=== PATIENT | male | born 1935 | race Caucasian/White ===

== ENCOUNTER 2016-10-29 02:16 | Inpatient (IN) | payer MEDICARE, BC ==
[2016-10-29 04:33] LABS: ABSOLUTE LYMPHOCYTES (AUTO) 0.7 10^3/uL (0.5-4.7); ABSOLUTE NEUT (AUTO) 5.8 10^3/uL (1.7-8.2); BASOPHILS % (AUTO) 0.4 % (0-2); EOSINOPHILS % (AUTO) 0.4 % (0-6); HEMATOCRIT 36.4 % (37.9-51.0); HEMOGLOBIN 12.8 g/dL (13.5-17.0); LYMPHOCYTES % (AUTO) 9.6 % (13-45); MEAN CORPUSCULAR HEMOGLOBIN 33.1 pg (27.0-33.4); MEAN CORPUSCULAR HGB CONC 35.2 g/dL (32.0-36.0); MEAN CORPUSCULAR VOLUME 94 fl (80-97); MONOCYTES % (AUTO) 13.1 % (3-13); RED BLOOD COUNT 3.87 10^6/uL (4.35-5.55); RED CELL DISTRIBUTION WIDTH 13.4 % (11.5-14.0); SEGMENTED NEUTROPHILS % (AUTO) 76.5 % (42-78); VENOUS BLOOD BASE EXCESS 0.4 mmol/L; VENOUS BLOOD PCO2 35.7 mmHg (35-63); VENOUS BLOOD PH 7.45 (7.30-7.42); WHITE BLOOD COUNT 7.6 10^3/uL (4.0-10.5)
--- NOTE | 2016-10-29 04:38 | ER Document Report ---
ED General - General Chief Complaint: Altered Mental Status Stated Complaint: ALTERED MENTAL STATUS AND COUGH Notes: Patient is 80-year-old male who is brought in by his son for confusion and weakness. Patient son said he got a call from the police the patient was found driving on the road at 20 miles an hour. With a please gum puller his frontal very confused. Son went and picked him up. Patient was in an area [place] that is far away from his house and not an area that he should've been familiar with. The patient himself cannot tell me why he ended up there. Son says the patient may have a history of very mild dementia but today he's been much more confused and very weak appearing and also having difficulty in relating which is not normal for him at all. No recent fevers. Son says patient has been coughing a lot since he picked him up which again is not normal. Patient lives with his older sister. His older sister is 85 years old. Patient denies any pain. When I asked the patient where he has he says "I think I'm in the rest home". Patient son does not really know exactly what kind of medical problems he has. He does not know what medications he is on. TRAVEL OUTSIDE OF THE [place] IN LAST 30 DAYS: No - Related Data Allergies/Adverse Reactions: No Known Allergies Allergy (Verified 12/08/13 12:43) Past Medical History - Social History Smoking Status: Unknown if Ever Smoked Frequency of alcohol use: None Drug Abuse: None Family History: None - Past Medical History Cardiac Medical History: Reports: Hx Coronary Artery Disease, Hx Heart Attack, Hx Hypercholesterolemia, Hx Hypertension Denies: Hx Atrial Fibrillation, Hx Congestive Heart Failure, Hx Peripheral Vascular Disease, Hx Pulmonary Embolism, Hx Heart Murmur Pulmonary Medical History: Denies: Hx Asthma, Hx Bronchitis, Hx COPD, Hx Pneumonia, Hx Respiratory Failure, Hx Sleep Apnea, Hx Tuberculosis Neurological Medical History: Denies: Hx Cerebrovascular Accident, Hx Seizures Endocrine Medical History: Reports: Hx Diabetes Mellitus Type 2 Renal/ Medical History: Denies: Hx Peritoneal Dialysis Malignancy Medical History: Denies Hx Lung Cancer GI Medical History: Denies: Hx Crohn's Disease, Hx Gastroesophageal Reflux Disease, Hx Hiatal Hernia, Hx Irritable Bowel, Hx Liver Failure, Hx Ulcer Musculoskeltal Medical History: Denies Hx Multiple Sclerosis Psychiatric Medical History: Denies: Hx Dementia Past Surgical History: Reports: Hx Cardiac Surgery - bypass x' s 5, Hx Coronary Artery Bypass Graft. Denies: Hx Colostomy, Hx Pacemaker - Immunizations Hx Diphtheria, Pertussis, Tetanus Vaccination: Yes - unsure Hx Pneumococcal Vaccination: 06/30/11 Review of Systems - Review of Systems Notes: My Normal Review Basic REVIEW OF SYSTEMS: CONSTITUTIONAL : Denies fever, chills, or sweats. Denies recent illness. EENT: Denies eye, ear, throat, or mouth pain or symptoms. Denies nasal or sinus congestion. CARDIOVASCULAR: Denies chest pain. RESPIRATORY: Recurrent cough GASTROINTESTINAL: Denies abdominal pain. Denies nausea, vomiting, or diarrhea. Denies constipation. Last BM: GENITOURINARY: Denies difficulty urinating, painful urination, burning, frequency, or blood in urine. MUSCULOSKELETAL: Denies neck or back pain or joint pain or swelling. SKIN: Denies rash or skin lesions. HEMATOLOGIC : Denies easy bruising or bleeding. LYMPHATIC: Denies swollen, enlarged glands. NEUROLOGICAL: Denies altered mental status or loss of consciousness. Denies headache. Denies weakness or paralysis or loss of use of either side. Has some gait dysfunction. Denies sensory or motor loss. ALL OTHER SYSTEMS REVIEWED AND NEGATIVE. Physical Exam - Vital signs Vitals: Temp Pulse Resp BP Pulse Ox 99.6 F 102 H 20 146/71 H 94 10/29/16 02:23 10/29/16 02:23 10/29/16 02:23 10/29/16 02:23 10/29/16 02:23 - Notes Notes: General Appearance: Well nourished, alert, cooperative, weak appearing. Vitals: reviewed, See vital signs table. Head: no swelling or tenderness to the head Eyes: PERRL, EOMI, Conjuctiva clear Mouth: No decreasd moisture Throat: No tonsillar inflammation, No airway obstruction, No lymphadenopathy Neck: Supple, no neck tenderness, Lungs: No wheezing, No rales, No rhonci, No accessory muscle use, good air exchange bilaterally. Heart: Normal rate, Regular rythm, No murmur, no rub Abdomen: Normal BS, soft, No rigidity, No abdominal tenderness, No guarding, no rebound, no abdominal masses, no organomegaly Extremities: strength 5/5 in all extremities, good pulses in all extremities, no swelling or tenderness in the extremities, no edema. Skin: warm, dry, appropriate color, no rash Neuro: speech clear, oriented x2, normal affect, responds appropriately to some questions. Cranial nerves II through XII are intact. Patient moves all extremities without difficulty. No focal weakness or numbness on exam. Patient 's gait is very staggered and he immediately reaches for objects to help steady himself as he walks. Course - Vital Signs Vital signs: Temp Pulse Resp BP Pulse Ox 97.8 F 102 H 21 H 119/56 L 95 10/29/16 06:01 10/29/16 02:23 10/29/16 06:32 10/29/16 06:32 10/29/16 06:32 - Laboratory Result Diagrams: 10/29/16 04:15 10/29/16 06:41 Laboratory results interpreted by me: 10/29/16 10/29/16 10/29/16 04:15 04:15 06:25 RBC 3.87 L Hgb 12.8 L Hct 36.4 L Lymphocytes % 9.6 L Monocytes % 13.1 H VBG pH 7.45 H Chloride Glucose Total Bilirubin Direct Bilirubin Creatine Kinase Urine Protein 30 H Urine Ketones TRACE H Urine Blood MODERATE H Urine Urobilinogen 4.0 H 10/29/16 06:41 RBC Hgb Hct Lymphocytes % Monocytes % VBG pH Chloride 97 L Glucose 111 H Total Bilirubin 1.6 H Direct Bilirubin 0.5 H Creatine Kinase 420 H Urine Protein Urine Ketones Urine Blood Urine Urobilinogen - EKG Interpretation by Me Additional EKG results interpreted by me: 10/29/16 04:37 EKG is reviewed and interpreted by me. EKG shows normal sinus rhythm with rate of [address] segment elevation or depression. No ischemic T wave inversions. [place] interval is within normal range. QRS duration QTC intervals are prolonged. Old EKG for comparison is from 06/19/2012. - Transfer of Care Notes: 10/29/16 07:37 Patient shows some confusion. Also concerned that according to his son he normally walks fine and now he is ataxic when he gets up and moves around. While he was here his oxygen saturations were dipping down to about 90% while rest. I did get him up to walk him and his oxygen saturation dipped into the upper 80s. He has been having a lot of coughing and his chest x-ray does show some pneumonia and therefore he was likely has clinical pneumonia with some hypoxemia. Urinalysis does show some hematuria. Exact cause of this is not clear. At this time I will consult the hospitals for consideration for admission. 10/29/16 07:38 Dictation of this chart was performed using voice recognition software; therefore, there may be some unintended grammatical errors. Discharge - Discharge Clinical Impression: Hypoxemia Pneumonia Qualifiers: Pneumonia type: due to unspecified organism Laterality: unspecified laterality Lung location: unspecified part of lung Qualified Code(s): J18.9 - Pneumonia, unspecified organism Altered mental status Qualifiers: Altered mental status type: unspecified Qualified Code(s): R41.82 - Altered mental status, unspecified Condition: Stable Disposition: ADMITTED INPATIENT Admitting Provider: Hospitalist Unit Admitted: [facility]
[2016-10-29] MEDS ORDERED: LEVOFLOXACIN 750 MG/D5W RTU 150 ML IV ONE (05:37)
[2016-10-29] MEDS ORDERED: IPRATROPIUM/ALBUTEROL 0.5-2.5 MG/3 ML AMPUL NEB ONE (05:39)
[2016-10-29 07:03] LABS: APPEARANCE,URINE CLEAR; BILIRUBIN,URINE NEGATIVE (NEGATIVE); GLUCOSE, URINE NEGATIVE (NEGATIVE); KETONES,URINE TRACE mg/dL (NEGATIVE); LEUKOCYTE ESTERASE,URINE NEGATIVE (NEGATIVE); NITRITE,URINE NEGATIVE (NEGATIVE); PROTEIN,URINE 30 mg/dL (NEGATIVE); URINE SPECIFIC GRAVITY 1.016
[2016-10-29 07:08] LABS: ALANINE AMINOTRANSFERASE 30 U/L (21-72); ALBUMIN 3.7 g/dL (3.5-5.0); ALKALINE PHOSPHATASE 68 U/L (38-126); ANION GAP 14 (5-19); ASPARTATE AMINO TRANSFERASE 35 U/L (17-59); BILIRUBIN,DIRECT 0.5 mg/dL (0.0-0.4); BILIRUBIN,TOTAL 1.6 mg/dL (0.2-1.3); BLOOD UREA NITROGEN 13 mg/dL (7-20); CALCIUM 8.9 mg/dL (8.4-10.2); CARBON DIOXIDE 26 mmol/L (22-30); CHLORIDE 97 mmol/L (98-107); CREATINE KINASE 420 U/L (55-170); CREATININE RESULT 0.82 mg/dL (0.52-1.25); GLUCOSE 111 mg/dL (75-110); POTASSIUM 3.7 mmol/L (3.6-5.0)
[2016-10-29 07:11] LABS: ALCOHOL < 10 mg/dL (NONE DETECTED)
[2016-10-29 07:11] LABS: URINE BARBITURATES SCREEN NEGATIVE; URINE METHADONE SCREEN NEGATIVE; URINE OPIATES LOW NEGATIVE; URINE PHENCYCLIDINE SCREEN NEGATIVE
[2016-10-29 07:20] LABS: CREATINE KINASE MB 4.05 ng/mL (<4.55)
[2016-10-29 07:23] LABS: TROPONIN I < 0.012 ng/mL
[2016-10-29] MEDS ORDERED: LEVALBUTEROL HCL NEB 1.25 MG/3 ML AMPUL NEB PRN (07:38)
[2016-10-29] MEDS ORDERED: ACETAMINOPHEN 325 MG TABLET PO PRN (07:38)
[2016-10-29] MEDS ORDERED: PHARMACY COMMUNICATION ORDER MC NR (07:45)
--- NOTE | 2016-10-29 07:55 | EKG REPORT ---
SEVERITY:- ABNORMAL ECG - SINUS RHYTHM IVCD, CONSIDER ATYPICAL RBBB : Confirmed by: Jose Jurado MD 29-Oct-2016 07:54:58
[2016-10-29] MEDS ORDERED: ENOXAPARIN SODIUM INJ 40 MG/0.4 ML DISP.SYRIN SUBCUT SCH (08:00)
[2016-10-29] MEDS: IPRATROPIUM/ALBUTEROL 0.5-2.5 MG/3 ML AMPUL NEB SCH ×3 (09:31→20:14)
[2016-10-29] MEDS: FAMOTIDINE 20 MG TABLET PO SCH ×2 (09:48→21:20)
[2016-10-29] MEDS: GUAIFENESIN 600 MG TABLET.SA PO SCH ×2 (09:49→21:20)
[2016-10-29] MEDS: NORMAL SALINE 1000 ML 1,000 ML IV PRN ×2 (09:49→17:27)
[2016-10-29] MEDS: CEFTRIAXONE 1 GM/D5W RTU 50 ML IV SCH (09:59)
[2016-10-29] MEDS ORDERED: NALOXONE HCL INJ/PF 0.4 MG/1 ML SDV IV ONE (10:00)
[2016-10-29 14:23] LABS: CREATINE KINASE MB 6.45 ng/mL (<4.55)
[2016-10-29 14:24] LABS: TROPONIN I < 0.012 ng/mL
[2016-10-29] MEDS ORDERED: LORAZEPAM INJ 2 MG/1 ML VIAL IV ONE (14:55)
[2016-10-29] MEDS ORDERED: PANTOPRAZOLE SODIUM 40 MG VIAL IV ONE (14:55)
[2016-10-29] MEDS ORDERED: DEXTROSE 40% GEL 15 GM TUBE PO PRN ×2 (15:02)
[2016-10-29] MEDS ORDERED: INSULIN LISPRO 100 UNIT/ML 3 ML VIAL SUBCUT PRN (15:02)
[2016-10-29] MEDS ORDERED: DEXTROSE 50%-WATER 25 GM/50 ML DISP.SYRIN IV PRN ×2 (15:02)
[2016-10-29] MEDS ORDERED: GLUCAGON,HUMAN RECOMB 1 MG INJ IM PRN (15:02)
[2016-10-29] MEDS: DOXYCYCLINE HYCLATE 100 MG in DEXTROSE 5%-WATER 250 ML IV SCH (17:28)
--- NOTE | 2016-10-29 18:56 | PDOC H&P ---
History of Present Illness Admission Date/PCP: 10/29/16 07:38 History of Present Illness: RAMESH GUERRERO is a 80 year old male is unaccompanied in the emergency department and history is primarily obtained from the emergency department notes. Apparently, patient was brought to the emergency department by his son after being found by the police for his father driving until he ran out of gas. He was confused and also had a cough at that time. Currently, patient is found to be hypoxic upon ambulation, with cough and dehydration. Patient is quite confused and is unable to provide me any history. Past Medical History Cardiac Medical History: Reports: Coronary Artery Disease, Myocardial Infarction , Hyperlipidema, Hypertension Denies: Atrial Fibrillation, Congestive Heart Failure, Peripheral Vascular Disease, Pulmonary Embolism, Heart Murmur Pulmonary Medical History: Denies: Asthma, Bronchitis, Chronic Obstructive Pulmonary Disease (COPD), Pneumonia, Respiratory Failure, Sleep Apnea, Tuberculosis Neurological Medical History: Denies: Seizures Endocrine Medical History: Reports: Diabetes Mellitus Type 2 Malignancy Medical History: Denies: Lung Cancer GI Medical History: Denies: Crohn's Disease, Gastroesophageal Reflux Disease, Hiatal Hernia Psychiatric Medical History: Denies: Dementia Past Surgical History Past Surgical History: Reports: Coronary Artery Bypass Graft Denies: Colostomy, Pacemaker Social History Information Source: [facility] Records Lives with: Family Smoking Status: Unknown if Ever Smoked Hx Recreational Drug Use: No Hx Prescription Drug Abuse: No - Advance Directive Resuscitation Status: Full Code Surrogate healthcare decision maker:: son Family History Family History: None Family History: Unable to obtain secondary to altered mental status Parental Family History Reviewed: No Children Family History Reviewed: No Sibling(s) Family History Reviewed.: No Medication/Allergy Home Medications: Unobtainable [Unobtainable] 10/29/16 Allergies/Adverse Reactions: No Known Allergies Allergy (Verified 12/08/13 12:43) Review of Systems ROS unobtainable: Due to mental status Physical Exam Vital Signs: Temp Pulse Resp BP Pulse Ox 98.4 F 83 20 116/61 100 10/29/16 18:12 10/29/16 18:12 10/29/16 18:12 10/29/16 18:12 10/29/16 18:12 General appearance: PRESENT: disheveled, hard of hearing, mild distress, well- developed, well-nourished Head exam: PRESENT: atraumatic, normocephalic Eye exam: PRESENT: conjunctiva pink, EOMI. ABSENT: PERRLA - Minimally reactive 3 mm pupils, scleral icterus Ear exam: PRESENT: normal external ear exam Mouth exam: PRESENT: dry mucosa, tongue midline Neck exam: ABSENT: JVD, lymphadenopathy, meningismus, tenderness, thyromegaly, tracheal deviation Respiratory exam: PRESENT: rhonchi - Bilateral occasional right basilar, symmetrical, unlabored. ABSENT: accessory muscle use, rales, retraction, tachypnea, wheezes Cardiovascular exam: PRESENT: RRR, +S1, +S2. ABSENT: clicks, diastolic murmur, gallop, rubs, systolic murmur Pulses: PRESENT: normal dorsalis pedis pul Vascular exam: PRESENT: normal capillary refill GI/Abdominal exam: PRESENT: normal bowel sounds, soft. ABSENT: distended, firm , guarding, mass, Cortez's sign, organolmegaly, rebound, rigid, tenderness Rectal exam: PRESENT: deferred Extremities exam: PRESENT: full ROM. ABSENT: calf tenderness, clubbing, pedal edema Neurological exam: PRESENT: alert, awake, oriented to person, CN II-XII grossly intact. ABSENT: oriented to place, oriented to time, oriented to situation, motor sensory deficit Psychiatric exam: PRESENT: appropriate affect, normal mood. ABSENT: homicidal ideation, suicidal ideation Skin exam: PRESENT: dry, intact, warm. ABSENT: cyanosis, rash Results Laboratory Results: 10/29/16 10/29/16 13:37 13:37 Creatine Kinase 527 H CK-MB (CK-2) 6.45 H Troponin I < 0.012 Impressions: Abdomen/Pelvis CT 10/29/16 00:00 IMPRESSION: Calcified gallstones without CT signs of acute cholecystitis. Probable vascular arterial calcifications of the right and left renal genoveva. No evidence of ureteral stones or hydronephrosis/ hydroureter Heavy atherosclerotic aortic and major branch calcifications Head CT 10/29/16 00:00 IMPRESSION: No acute findings. Chest X-Ray 10/29/16 03:15 IMPRESSION: New small patchiness of the right lung base may indicate pneumonia , atelectasis, or scar compared with prior exam from 2012. Assessment & Plan - Diagnosis (1) Pneumonia Qualifiers: Pneumonia type: due to unspecified organism Laterality: unspecified laterality Lung location: unspecified part of lung Qualified Code(s): J18.9 - Pneumonia, unspecified organism Is this a current diagnosis for this admission?: YesPlan: Clinically patient sounds like he has bilateral bibasilar pneumonia. Will hydrate patient and repeat chest x-ray tomorrow to see if a infiltrate declares itself. Place patient on Rocephin and doxycycline and pulmonary toileting. (2) Acute hypoxemic respiratory failure Is this a current diagnosis for this admission?: YesPlan: Continue oxygen to maintain saturation greater than 94%. (3) Acute encephalopathy Is this a current diagnosis for this admission?: YesPlan: Patient was and still is clearly confused. Apparently this is not patient's baseline. Likely secondary to underlying dementia worsened by acute infection. Continue supportive care and place her. Patient has artery twice attempted to remove his IV and leave the emergency department. (4) Dementia Qualifiers: Dementia type: unspecified type Dementia behavioral disturbance: with behavioral disturbance Qualified Code(s): F03.91 - Unspecified dementia with behavioral disturbance Is this a current diagnosis for this admission?: YesPlan: Sitter and supportive care. Patient does have a mildly prolonged QT and will avoid QT prolonging agents. (5) Coronary artery disease Qualifiers: Coronary Disease-Associated Artery/Lesion type: [place] artery [place] vs. transplanted heart: [place] heart Associated angina: without angina Qualified Code(s): I25.10 - Atherosclerotic heart disease of [place] coronary artery without angina pectoris Is this a current diagnosis for this admission?: YesPlan: Clearly evident on CT. Patient had prior CABG. (6) Hematuria Is this a current diagnosis for this admission?: YesPlan: Obtain CT of the abdomen and pelvis for possible stone or mass. This may also have been due to catheterization. - Time Time Spent: 50 to 70 Minutes Medications reviewed and adjusted accordingly: Yes - Inpatient Certification Based on my medical assessment, after consideration of the patient's comorbidities, presenting symptoms, or acuity I expect that the services needed warrant INPATIENT care.: Yes I certify that my determination is in accordance with my understanding of Medicare's requirements for reasonable and necessary INPATIENT services [42 CFR 412.3e].: Yes Medical Necessity: Significant Comorbidiites Make Outpatient Treatment Too Risky , Need for Nebulizer Therapy and Monitoring of Response, Need for IV Antibiotics Post Hospital Care: D/C Change Advisor Documentation
[2016-10-29 20:02] LABS: CREATINE KINASE MB 8.05 ng/mL (<4.55)
[2016-10-29 20:06] LABS: TROPONIN I < 0.012 ng/mL
[2016-10-30 03:56] LABS: HEMATOCRIT 32.4 % (37.9-51.0); HEMOGLOBIN 11.6 g/dL (13.5-17.0); HGB HCT DIFFERENCE 2.4; MEAN CORPUSCULAR HEMOGLOBIN 33.6 pg (27.0-33.4); MEAN CORPUSCULAR HGB CONC 35.7 g/dL (32.0-36.0); MEAN CORPUSCULAR VOLUME 94 fl (80-97); RED BLOOD COUNT 3.44 10^6/uL (4.35-5.55); RED CELL DISTRIBUTION WIDTH 13.4 % (11.5-14.0); WHITE BLOOD COUNT 8.6 10^3/uL (4.0-10.5)
[2016-10-30] MEDS: DOXYCYCLINE HYCLATE 100 MG in DEXTROSE 5%-WATER 250 ML IV SCH ×2 (05:01→18:41)
[2016-10-30 05:07] LABS: BAND NEUTROPHILS % (MANUAL) 1 % (3-5); BASOPHILS % (MANUAL) 0 % (0-2); EOSINOPHILS % (MANUAL) 1 % (0-6); LYMPHOCYTES % (MANUAL) 10 % (13-45); TOTAL CELLS COUNTED 100
[2016-10-30 05:07] LABS: ANION GAP 13 (5-19); BLOOD UREA NITROGEN 11 mg/dL (7-20); CALCIUM 8.3 mg/dL (8.4-10.2); CARBON DIOXIDE 23 mmol/L (22-30); CHLORIDE 99 mmol/L (98-107); CREATININE RESULT 0.66 mg/dL (0.52-1.25); GLUCOSE 82 mg/dL (75-110); POTASSIUM 3.5 mmol/L (3.6-5.0); SODIUM 134.6 mmol/L (137-145)
[2016-10-30 05:09] LABS: PLATELET CLUMPS PRESENT; POLYCHROMASIA SLIGHT; TOXIC GRANULATION SLIGHT
[2016-10-30] MEDS ORDERED: LEVOFLOXACIN 750 MG/D5W RTU 150 ML IV SCH (06:00)
[2016-10-30 06:11] LABS: FOLATE 7.41 ng/mL (>2.76)
[2016-10-30] MEDS: IPRATROPIUM/ALBUTEROL 0.5-2.5 MG/3 ML AMPUL NEB SCH ×3 (08:50→20:16)
[2016-10-30] MEDS: FAMOTIDINE 20 MG TABLET PO SCH ×2 (09:59→22:58)
[2016-10-30] MEDS: GUAIFENESIN 600 MG TABLET.SA PO SCH ×2 (09:59→22:58)
[2016-10-30] MEDS: CEFTRIAXONE 1 GM/D5W RTU 50 ML IV SCH (09:59)
[2016-10-30] MEDS: ENOXAPARIN SODIUM INJ 40 MG/0.4 ML DISP.SYRIN SUBCUT SCH (10:00)
[2016-10-30] MEDS: METHYLPREDNISOLONE INJ 40 MG/1 ML SDV IV SCH ×2 (14:05→22:58)
[2016-10-30] MEDS: TAMSULOSIN HCL 0.4 MG CAP.SR.24H PO SCH (18:40)
[2016-10-30] MEDS: RISPERIDONE 1 MG TABLET PO SCH (18:40)
[2016-10-30] MEDS: LORAZEPAM 1 MG TABLET PO PRN (20:44)
[2016-10-31 04:53] LABS: ABSOLUTE LYMPHOCYTES (AUTO) 0.8 10^3/uL (0.5-4.7); ABSOLUTE MONOCYTES (AUTO) 0.5 10^3/uL (0.1-1.4); ABSOLUTE NEUT (AUTO) 4.2 10^3/uL (1.7-8.2); BASOPHILS % (AUTO) 0.7 % (0-2); HEMATOCRIT 33.2 % (37.9-51.0); HEMOGLOBIN 11.9 g/dL (13.5-17.0); HGB HCT DIFFERENCE 2.5; MEAN CORPUSCULAR HEMOGLOBIN 33.7 pg (27.0-33.4); MEAN CORPUSCULAR HGB CONC 35.7 g/dL (32.0-36.0); MEAN CORPUSCULAR VOLUME 94 fl (80-97); MONOCYTES % (AUTO) 8.7 % (3-13); RED BLOOD COUNT 3.51 10^6/uL (4.35-5.55); RED CELL DISTRIBUTION WIDTH 13.1 % (11.5-14.0); SEGMENTED NEUTROPHILS % (AUTO) 76.6 % (42-78); WHITE BLOOD COUNT 5.5 10^3/uL (4.0-10.5)
[2016-10-31] MEDS: DOXYCYCLINE HYCLATE 100 MG in DEXTROSE 5%-WATER 250 ML IV SCH ×2 (06:34→18:25)
[2016-10-31] MEDS: METHYLPREDNISOLONE INJ 40 MG/1 ML SDV IV SCH ×2 (06:34→14:51)
[2016-10-31] MEDS: IPRATROPIUM/ALBUTEROL 0.5-2.5 MG/3 ML AMPUL NEB SCH ×3 (08:18→20:04)
[2016-10-31] MEDS ORDERED: POTASSIUM CHLORIDE 10 MEQ TABLET.SA PO ONE (09:00)
[2016-10-31] MEDS: CEFTRIAXONE 1 GM/D5W RTU 50 ML IV SCH (10:11)
[2016-10-31] MEDS: ENOXAPARIN SODIUM INJ 40 MG/0.4 ML DISP.SYRIN SUBCUT SCH (10:13)
[2016-10-31] MEDS: FAMOTIDINE 20 MG TABLET PO SCH (10:15)
[2016-10-31] MEDS: FINASTERIDE 5 MG TABLET PO SCH (10:15)
[2016-10-31] MEDS: RISPERIDONE 1 MG TABLET PO SCH ×2 (10:15→18:24)
[2016-10-31] MEDS: GUAIFENESIN 600 MG TABLET.SA PO SCH (10:15)
[2016-10-31] MEDS ORDERED: LORAZEPAM 0.5 MG TABLET PO PRN (10:54)
[2016-10-31] MEDS ORDERED: RISPERIDONE 1 MG TABLET PO ONE (11:30)
[2016-10-31] MEDS: CYANOCOBALAMIN (VITAMIN B-12) INJ 1000 MCG/1 ML VIAL IM SCH (12:28)
--- NOTE | 2016-10-31 15:21 | Physician Advisory Note ---
Physician Advisor ProgressNote .: Pursuant to the plan for [facility], I have reviewed the medical record for this patient. Physician Advisor Statement: Please document: 1. "BLL Pneumonia, suspect ____" (gram neg? gram positive? ...) 2. type of dementia - [Alzheimer's? Multi-infarct? ...] 3. All evidence supporting the dx of Ac Resp Failure in this case: any low O2 sats early on (or low-mid 90s on O2?), difficulty breathing/increased work of breathing, ... Thanks, CK
[2016-10-31] MEDS ORDERED: METOPROLOL TARTRATE PF/INJ 5 MG/5 ML SDV IV PRN (15:59)
--- NOTE | 2016-10-31 17:19 | PDOC PROGRESS REPORT ---
Subjective Progress Note for:: 10/30/16 Subjective:: Patient seen with son at bedside. Patient quite confused. Despite actively coughing he reports he is breathing fine. Unable to obtain review of systems secondary to dementia. Physical Exam Vital Signs: Temp Pulse Resp BP Pulse Ox 97.9 F 86 20 120/52 L 95 10/30/16 03:00 10/30/16 03:00 10/30/16 03:00 10/30/16 03:00 10/30/16 03:00 Intake & Output 10/29/16 10/30/16 10/31/16 06:59 06:59 06:59 Intake Total 1105 Output Total 750 Balance 355 Weight 77.9 kg Exam: General: Awake alert and oriented x1, mild respiratory distress, tachypnea HEENT: AT/NC, PERRL, EOMI, oropharynx is moist, pink, no scleral icterus, no conjunctival injection Neck: No JVD, trachea midline Chest: Tachypnea, rhonchi bilaterally CV: Regular rate and rhythm, normal S1 and S2, no murmur, rub, or gallop Abdomen: Soft, nontender to palpation, nondistended, active bowel sounds; no rebound, rigidity, or guarding Extremities: No cyanosis, clubbing or edema Neuro: Cranial nerves II through XII are grossly intact without focal deficits; awake alert and oriented x1 Psych: Pleasant mood and affect Results Laboratory Results: 10/30/16 03:41 10/30/16 04:12 10/29/16 10/30/16 10/30/16 19:15 03:41 04:12 WBC 8.6 RBC 3.44 L Hgb 11.6 L Hct 32.4 L MCV 94 MCH 33.6 H MCHC 35.7 RDW 13.4 Plt Count 194 Seg Neutrophils % Not Reportable Lymphocytes % Not Reportable Monocytes % Not Reportable Eosinophils % Not Reportable Basophils % Not Reportable Absolute Neutrophils Not Reportable Absolute Lymphocytes Not Reportable Absolute Monocytes Not Reportable Absolute Eosinophils Not Reportable Absolute Basophils Not Reportable Retic Count (auto) 1.48 Absolute Retic 0.051 Sodium 134.6 L Potassium 3.5 L Chloride 99 Carbon Dioxide 23 Anion Gap 13 BUN 11 Creatinine 0.66 Est GFR ( Amer) > 60 Est GFR (Non-Af Amer) > 60 Glucose 82 Calcium 8.3 L Magnesium 2.3 Iron 26.5 L TIBC 233 L % Saturation 11 Ferritin 279.00 Vitamin B12 193.0 L Folate 7.41 10/29/16 10/29/16 10/29/16 13:37 13:37 19:15 Creatine Kinase 527 H 697 H CK-MB (CK-2) 6.45 H Troponin I < 0.012 10/29/16 19:15 Creatine Kinase CK-MB (CK-2) 8.05 H Troponin I < 0.012 Impressions: Abdomen/Pelvis CT 10/29/16 00:00 IMPRESSION: Calcified gallstones without CT signs of acute cholecystitis. Probable vascular arterial calcifications of the right and left renal genoveva. No evidence of ureteral stones or hydronephrosis/ hydroureter Heavy atherosclerotic aortic and major branch calcifications Head CT 10/29/16 00:00 IMPRESSION: No acute findings. Chest X-Ray 10/29/16 03:15 IMPRESSION: New small patchiness of the right lung base may indicate pneumonia , atelectasis, or scar compared with prior exam from 2012. Assessment & Plan - Diagnosis (1) Pneumonia Qualifiers: Pneumonia type: due to unspecified organism Laterality: bilateral Lung location: lower lobe of lung Qualified Code(s): J18.9 - Pneumonia, unspecified organism Is this a current diagnosis for this admission?: YesPlan: Patient with bilateral lower lobe pneumonia. Concern for atypical organisms, and community acquired pathogen. Patient on Rocephin and doxycycline. Pulmonary toileting. Have added Solu-Medrol. (2) Acute hypoxemic respiratory failure Is this a current diagnosis for this admission?: YesPlan: Continue oxygen to maintain saturation greater than 94%. (3) Acute encephalopathy Is this a current diagnosis for this admission?: YesPlan: Patient was and still is clearly confused. According to his son, patient's dementia has been progressing and he has been getting worse. He reports that normally his father is more redirectable. (4) Dementia Qualifiers: Dementia type: unspecified type Dementia behavioral disturbance: with behavioral disturbance Qualified Code(s): F03.91 - Unspecified dementia with behavioral disturbance; F10.97 - Alcohol use, unspecified with alcohol- induced persisting dementia Is this a current diagnosis for this admission?: YesPlan: Sitter and supportive care. 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 We will judiciously use Risperdal. Give Ativan for sleep. (5) Coronary artery disease Qualifiers: Coronary Disease-Associated Artery/Lesion type: [place] artery [place] vs. transplanted heart: [place] heart Associated angina: without angina Qualified Code(s): I25.10 - Atherosclerotic heart disease of [place] coronary artery without angina pectoris Is this a current diagnosis for this admission?: YesPlan: Clearly evident on CT. Patient had prior CABG. Done is unable to provide me with any history. We will place patient on metoprolol and aspirin. (6) Hematuria Is this a current diagnosis for this admission?: YesPlan: Lately secondary to catheterization. Nursing reports that patient has been straining to urinate. Initiate patient on Flomax and finasteride. (7) Do not resuscitate Is this a current diagnosis for this admission?: YesPlan: Patient is a DO NOT RESUSCITATE per the request of Son - Time Time Spent with patient: 35 or more minutes Medications reviewed and adjusted accordingly: Yes Anticipated discharge: SNF
--- NOTE | 2016-10-31 17:25 | PDOC PROGRESS REPORT ---
Subjective Progress Note for:: 10/31/16 Subjective:: Patient slept well with Ativan. He has been attempting to leave today since waking. He's required soft wrist restraints to maintain IV. Patient denies chest pain, shortness of breath, abdominal pain, nausea, vomiting , fevers, chills, diarrhea, constipation, headache, new onset weakness. Physical Exam Vital Signs: Temp Pulse Resp BP Pulse Ox 97.9 F 94 18 135/58 H 96 10/30/16 15:53 10/31/16 02:00 10/30/16 20:20 10/30/16 15:53 10/30/16 15:53 Intake & Output 10/30/16 10/31/16 11/01/16 06:59 06:59 06:59 Intake Total 1105 3623 Output Total 750 460 Balance 355 3163 Weight 77.9 kg 77.5 kg Exam: General: Awake alert and oriented x1, no acute respiratory distress HEENT: AT/NC, PERRL, EOMI, oropharynx is moist, pink, no scleral icterus, no conjunctival injection Neck: No JVD, trachea midline Chest: rhonchi bilaterally CV: Regular rate and rhythm, normal S1 and S2, no murmur, rub, or gallop Abdomen: Soft, nontender to palpation, nondistended, active bowel sounds; no rebound, rigidity, or guarding Extremities: No cyanosis, clubbing or edema Neuro: Cranial nerves II through XII are grossly intact without focal deficits; awake alert and oriented x1 Psych: Pleasant mood and affect Results Laboratory Results: 10/31/16 04:08 10/30/16 04:12 10/30/16 10/31/16 04:12 04:08 WBC 5.5 RBC 3.51 L Hgb 11.9 L Hct 33.2 L MCV 94 MCH 33.7 H MCHC 35.7 RDW 13.1 Plt Count 256 Seg Neutrophils % 76.6 Lymphocytes % 14.0 Monocytes % 8.7 Eosinophils % 0.0 Basophils % 0.7 Absolute Neutrophils 4.2 Absolute Lymphocytes 0.8 Absolute Monocytes 0.5 Absolute Eosinophils 0.0 Absolute Basophils 0.0 Transferrin 164 L 10/29/16 10/29/16 10/29/16 13:37 13:37 19:15 Creatine Kinase 527 H 697 H CK-MB (CK-2) 6.45 H Troponin I < 0.012 10/29/16 19:15 Creatine Kinase CK-MB (CK-2) 8.05 H Troponin I < 0.012 Impressions: Abdomen/Pelvis CT 10/29/16 00:00 IMPRESSION: Calcified gallstones without CT signs of acute cholecystitis. Probable vascular arterial calcifications of the right and left renal genoveva. No evidence of ureteral stones or hydronephrosis/ hydroureter Heavy atherosclerotic aortic and major branch calcifications Head CT 10/29/16 00:00 IMPRESSION: No acute findings. Chest X-Ray 10/29/16 03:15 IMPRESSION: New small patchiness of the right lung base may indicate pneumonia , atelectasis, or scar compared with prior exam from 2012. Assessment & Plan - Diagnosis (1) Pneumonia Qualifiers: Pneumonia type: due to unspecified organism Laterality: bilateral Lung location: lower lobe of lung Qualified Code(s): J18.9 - Pneumonia, unspecified organism Is this a current diagnosis for this admission?: YesPlan: Patient with bilateral lower lobe pneumonia. Concern for atypical organisms, and community acquired pathogen. Patient on Rocephin and doxycycline. Pulmonary toileting. Continue Solu-Medrol. (2) Acute hypoxemic respiratory failure Is this a current diagnosis for this admission?: YesPlan: Yesterday patient had quite a bit of difficulty maintaining saturation without oxygen. Today he will not leave this on. His saturation is marginal and in the high 80s. (3) Acute encephalopathy Is this a current diagnosis for this admission?: YesPlan: Patient was and still is clearly confused. Will increase Risperdal and add when necessary Ativan. (4) Dementia Qualifiers: Dementia type: unspecified type Dementia behavioral disturbance: with behavioral disturbance Qualified Code(s): F03.91 - Unspecified dementia with behavioral disturbance; F10.97 - Alcohol use, unspecified with alcohol- induced persisting dementia Is this a current diagnosis for this admission?: YesPlan: Sitter and supportive care. 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 We will judiciously use Risperdal. Give Ativan for sleep. (5) Coronary artery disease Qualifiers: Coronary Disease-Associated Artery/Lesion type: [place] artery [place] vs. transplanted heart: [place] heart Associated angina: without angina Qualified Code(s): I25.10 - Atherosclerotic heart disease of [place] coronary artery without angina pectoris Is this a current diagnosis for this admission?: Yes (6) BPH (benign prostatic hyperplasia) Qualifiers: Prostatic enlargement morphology: unspecified morphology Lower urinary tract symptom presence: symptoms present Qualified Code(s): N40.1 - Benign prostatic hyperplasia with lower urinary tract symptoms Is this a current diagnosis for this admission?: YesPlan: Patient on Flomax and finasteride - Time Time Spent with patient: 25-34 minutes Medications reviewed and adjusted accordingly: Yes Anticipated discharge: SNF
[2016-10-31] MEDS: FERROUS SULFATE 325 MG TABLET PO SCH (18:22)
[2016-10-31] MEDS: TAMSULOSIN HCL 0.4 MG CAP.SR.24H PO SCH (18:24)
[2016-11-01] MEDS: METOPROLOL SUCCINATE 50 MG TAB.SR.24H PO SCH ×3 (00:02→22:31)
[2016-11-01] MEDS: METHYLPREDNISOLONE INJ 40 MG/1 ML SDV IV SCH ×4 (00:02→22:31)
[2016-11-01] MEDS: FAMOTIDINE 20 MG TABLET PO SCH ×3 (00:03→22:30)
[2016-11-01] MEDS: GUAIFENESIN 600 MG TABLET.SA PO SCH ×3 (00:03→22:30)
[2016-11-01] MEDS: LORAZEPAM 1 MG TABLET PO PRN (00:44)
[2016-11-01] MEDS: DOXYCYCLINE HYCLATE 100 MG in DEXTROSE 5%-WATER 250 ML IV SCH ×2 (06:00→17:58)
[2016-11-01 06:20] LABS: ABSOLUTE LYMPHOCYTES (AUTO) 0.4 10^3/uL (0.5-4.7); ABSOLUTE MONOCYTES (AUTO) 0.3 10^3/uL (0.1-1.4); ABSOLUTE NEUT (AUTO) 5.6 10^3/uL (1.7-8.2); BASOPHILS % (AUTO) 0.1 % (0-2); HEMATOCRIT 35.6 % (37.9-51.0); HEMOGLOBIN 12.5 g/dL (13.5-17.0); HGB HCT DIFFERENCE 1.9; MEAN CORPUSCULAR HEMOGLOBIN 33.2 pg (27.0-33.4); MEAN CORPUSCULAR HGB CONC 35.1 g/dL (32.0-36.0); MEAN CORPUSCULAR VOLUME 95 fl (80-97); MONOCYTES % (AUTO) 4.1 % (3-13); RED BLOOD COUNT 3.76 10^6/uL (4.35-5.55); RED CELL DISTRIBUTION WIDTH 13.2 % (11.5-14.0); SEGMENTED NEUTROPHILS % (AUTO) 89.8 % (42-78); WHITE BLOOD COUNT 6.3 10^3/uL (4.0-10.5)
[2016-11-01] MEDS: IPRATROPIUM/ALBUTEROL 0.5-2.5 MG/3 ML AMPUL NEB SCH ×3 (08:06→14:09)
[2016-11-01 08:30] LABS: ANION GAP 12 (5-19); BLOOD UREA NITROGEN 12 mg/dL (7-20); CALCIUM 8.9 mg/dL (8.4-10.2); CARBON DIOXIDE 25 mmol/L (22-30); CHLORIDE 104 mmol/L (98-107); CREATININE RESULT 0.57 mg/dL (0.52-1.25); GLUCOSE 143 mg/dL (75-110); SODIUM 141.3 mmol/L (137-145)
[2016-11-01 08:34] LABS: POTASSIUM 4.5 mmol/L (3.6-5.0)
[2016-11-01] MEDS: FERROUS SULFATE 325 MG TABLET PO SCH ×2 (11:35→17:55)
[2016-11-01] MEDS: RISPERIDONE 1 MG TABLET PO SCH ×2 (11:36→17:56)
[2016-11-01] MEDS: ASPIRIN 81 MG TABLET, ENT COATED PO SCH (11:36)
[2016-11-01] MEDS: CEFTRIAXONE 1 GM/D5W RTU 50 ML IV SCH (11:38)
[2016-11-01] MEDS: MULTIVITAMINS W-IRON TABLET, CHEWABLE PO SCH (11:41)
[2016-11-01] MEDS: ENOXAPARIN SODIUM INJ 40 MG/0.4 ML DISP.SYRIN SUBCUT SCH (11:42)
[2016-11-01] MEDS: FINASTERIDE 5 MG TABLET PO SCH (11:42)
[2016-11-01] MEDS: CYANOCOBALAMIN (VITAMIN B-12) INJ 1000 MCG/1 ML VIAL IM SCH (11:43)
[2016-11-01] MEDS: LORAZEPAM 0.5 MG TABLET PO PRN (15:26)
--- NOTE | 2016-11-01 16:09 | PDOC PROGRESS REPORT ---
Subjective Progress Note for:: 11/01/16 Subjective:: Patient currently confused and lethargic though trying to get up. He's required soft wrist restraints to maintain IV. Patient denies chest pain, shortness of breath, abdominal pain, nausea, vomiting , fevers, chills, diarrhea, constipation, headache, new onset weakness. Physical Exam Vital Signs: Temp Pulse Resp BP Pulse Ox 97.2 F 83 20 147/59 H 97 11/01/16 03:58 11/01/16 03:58 11/01/16 03:58 11/01/16 03:58 11/01/16 03:58 Intake & Output 10/31/16 11/01/16 11/02/16 06:59 06:59 06:59 Intake Total 3623 1947 Output Total 460 Balance 3163 1947 Weight 77.5 kg 77.5 kg Exam: General: Lethargic, no acute respiratory distress HEENT: AT/NC, PERRL, EOMI, oropharynx is moist, pink, no scleral icterus, no conjunctival injection Neck: No JVD, trachea midline Chest: Occasional rhonchi bilaterally CV: Regular rate and rhythm, normal S1 and S2, no murmur, rub, or gallop Abdomen: Soft, nontender to palpation, nondistended, active bowel sounds; no rebound, rigidity, or guarding Extremities: No cyanosis, clubbing or edema Neuro: Cranial nerves II through XII are grossly intact without focal deficits; lethargic Psych: Lethargic Results Laboratory Results: 11/01/16 05:38 10/30/16 04:12 10/31/16 11/01/16 11:34 05:38 WBC 6.3 RBC 3.76 L Hgb 12.5 L Hct 35.6 L MCV 95 MCH 33.2 MCHC 35.1 RDW 13.2 Plt Count 317 Seg Neutrophils % 89.8 H Lymphocytes % 6.0 L Monocytes % 4.1 Eosinophils % 0.0 Basophils % 0.1 Absolute Neutrophils 5.6 Absolute Lymphocytes 0.4 L Absolute Monocytes 0.3 Absolute Eosinophils 0.0 Absolute Basophils 0.0 TSH 1.59 10/29/16 10/29/16 10/29/16 13:37 13:37 19:15 Creatine Kinase 527 H 697 H CK-MB (CK-2) 6.45 H Troponin I < 0.012 10/29/16 19:15 Creatine Kinase CK-MB (CK-2) 8.05 H Troponin I < 0.012 Impressions: Abdomen/Pelvis CT 10/29/16 00:00 IMPRESSION: Calcified gallstones without CT signs of acute cholecystitis. Probable vascular arterial calcifications of the right and left renal genoveva. No evidence of ureteral stones or hydronephrosis/ hydroureter Heavy atherosclerotic aortic and major branch calcifications Head CT 10/29/16 00:00 IMPRESSION: No acute findings. Chest X-Ray 10/29/16 03:15 IMPRESSION: New small patchiness of the right lung base may indicate pneumonia , atelectasis, or scar compared with prior exam from 2012. Assessment & Plan - Diagnosis (1) Pneumonia Qualifiers: Pneumonia type: due to unspecified organism Laterality: bilateral Lung location: lower lobe of lung Qualified Code(s): J18.9 - Pneumonia, unspecified organism Is this a current diagnosis for this admission?: YesPlan: Patient with bilateral lower lobe pneumonia. Concern for atypical organisms, and community acquired pathogen. Patient on Rocephin and doxycycline. Pulmonary toileting. Continue Solu-Medrol. (2) Acute hypoxemic respiratory failure Is this a current diagnosis for this admission?: YesPlan: Patient was found in the emergency department to have an oxygen saturation in the low 80s upon ambulation. Patient has required some oxygen while here, but does not keep it on always. (3) Acute encephalopathy Is this a current diagnosis for this admission?: YesPlan: Patient was and still is clearly confused. Will decrease Risperdal and use when necessary Ativan. Patient family reports reports that he has a history of alcohol abuse. (4) Dementia Qualifiers: Dementia type: associated with alcoholism Dementia behavioral disturbance: with behavioral disturbance Qualified Code(s): F03.91 - Unspecified dementia with behavioral disturbance; F10.97 - Alcohol use, unspecified with alcohol-induced persisting dementia Is this a current diagnosis for this admission?: YesPlan: Sitter and supportive care. 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 Give Ativan for sleep. (5) Coronary artery disease Qualifiers: Coronary Disease-Associated Artery/Lesion type: [place] artery [place] vs. transplanted heart: [place] heart Associated angina: without angina Qualified Code(s): I25.10 - Atherosclerotic heart disease of [place] coronary artery without angina pectoris Is this a current diagnosis for this admission?: YesPlan: Clearly evident on CT. Patient had prior CABG. Done is unable to provide me with any history. We will place patient on metoprolol and aspirin. (6) BPH (benign prostatic hyperplasia) Qualifiers: Prostatic enlargement morphology: unspecified morphology Lower urinary tract symptom presence: symptoms present Qualified Code(s): N40.1 - Benign prostatic hyperplasia with lower urinary tract symptoms Is this a current diagnosis for this admission?: YesPlan: Patient on Flomax and finasteride (7) Vitamin B 12 deficiency Is this a current diagnosis for this admission?: YesPlan: Will continue IM B12 (8) Do not resuscitate Is this a current diagnosis for this admission?: YesPlan: Patient is a DO NOT RESUSCITATE per the request of Son - Time Time Spent with patient: 25-34 minutes Medications reviewed and adjusted accordingly: Yes Anticipated discharge: SNF
[2016-11-01] MEDS: TAMSULOSIN HCL 0.4 MG CAP.SR.24H PO SCH (17:55)
[2016-11-02] MEDS: DOXYCYCLINE HYCLATE 100 MG in DEXTROSE 5%-WATER 250 ML IV SCH ×2 (07:53→17:00)
[2016-11-02] MEDS: METHYLPREDNISOLONE INJ 40 MG/1 ML SDV IV SCH ×2 (07:53→22:58)
[2016-11-02] MEDS: FERROUS SULFATE 325 MG TABLET PO SCH ×2 (08:10→17:00)
[2016-11-02] MEDS: ENOXAPARIN SODIUM INJ 40 MG/0.4 ML DISP.SYRIN SUBCUT SCH (08:10)
[2016-11-02] MEDS: IPRATROPIUM/ALBUTEROL 0.5-2.5 MG/3 ML AMPUL NEB SCH ×3 (08:29→19:45)
[2016-11-02] MEDS: FINASTERIDE 5 MG TABLET PO SCH (09:20)
[2016-11-02] MEDS: CEFTRIAXONE 1 GM/D5W RTU 50 ML IV SCH (09:21)
[2016-11-02] MEDS: RISPERIDONE 1 MG TABLET PO SCH ×3 (09:21→22:58)
[2016-11-02] MEDS: ASPIRIN 81 MG TABLET, ENT COATED PO SCH (09:21)
[2016-11-02] MEDS: METOPROLOL SUCCINATE 50 MG TAB.SR.24H PO SCH ×2 (09:21→22:58)
[2016-11-02] MEDS: GUAIFENESIN 600 MG TABLET.SA PO SCH ×2 (09:21→22:58)
[2016-11-02] MEDS: FAMOTIDINE 20 MG TABLET PO SCH ×2 (09:21→22:58)
[2016-11-02] MEDS: MULTIVITAMINS W-IRON TABLET, CHEWABLE PO SCH (09:22)
[2016-11-02] MEDS: LORAZEPAM 0.5 MG TABLET PO PRN (09:46)
[2016-11-02] MEDS: CYANOCOBALAMIN (VITAMIN B-12) INJ 1000 MCG/1 ML VIAL IM SCH (11:00)
[2016-11-02] MEDS ORDERED: LORAZEPAM INJ 2 MG/1 ML VIAL ONE (13:49)
--- NOTE | 2016-11-02 14:29 | PDOC PROGRESS REPORT ---
Subjective Progress Note for:: 11/02/16 Subjective:: Patient seen earlier today at morning rounds. Patient is more alert today, but is trying to get out of bed and is completely disoriented. Unable to obtain review of systems secondary to metabolic encephalopathy. Physical Exam Vital Signs: Temp Pulse Resp BP Pulse Ox 97.3 F 103 H 20 118/58 L 97 11/02/16 12:00 11/02/16 12:00 11/02/16 12:00 11/02/16 12:00 11/02/16 12:00 Intake & Output 11/01/16 11/02/16 11/03/16 06:59 06:59 06:59 Intake Total 1946 517 Balance 1946 517 Weight 77.5 kg 79.3 kg Exam: General: awake, alert, oriented x1, no acute respiratory distress HEENT: AT/NC, PERRL, oropharynx is moist, pink, no scleral icterus, no conjunctival injection Neck: No JVD, trachea midline Chest: Clear to auscultation bilaterally CV: Regular rate and rhythm, normal S1 and S2, no murmur, rub, or gallop Abdomen: Soft, nontender to palpation, nondistended, active bowel sounds; no rebound, rigidity, or guarding Extremities: No cyanosis, clubbing or edema Neuro: A+Ox1, left eye ptosis Psych: Agitated Results Laboratory Results: 11/01/16 05:38 11/01/16 05:38 10/29/16 10/29/16 10/29/16 13:37 13:37 19:15 Creatine Kinase 527 H 697 H CK-MB (CK-2) 6.45 H Troponin I < 0.012 10/29/16 19:15 Creatine Kinase CK-MB (CK-2) 8.05 H Troponin I < 0.012 Impressions: Abdomen/Pelvis CT 10/29/16 00:00 IMPRESSION: Calcified gallstones without CT signs of acute cholecystitis. Probable vascular arterial calcifications of the right and left renal genoveva. No evidence of ureteral stones or hydronephrosis/ hydroureter Heavy atherosclerotic aortic and major branch calcifications Head CT 10/29/16 00:00 IMPRESSION: No acute findings. Chest X-Ray 10/29/16 03:15 IMPRESSION: New small patchiness of the right lung base may indicate pneumonia , atelectasis, or scar compared with prior exam from 2012. Assessment & Plan - Diagnosis (1) Pneumonia Qualifiers: Pneumonia type: due to unspecified organism Laterality: bilateral Lung location: lower lobe of lung Qualified Code(s): J18.9 - Pneumonia, unspecified organism Is this a current diagnosis for this admission?: YesPlan: Patient with bilateral lower lobe pneumonia. Concern for atypical organisms, and community acquired pathogen. Patient on Rocephin and doxycycline day #4 Pulmonary toileting. Decrease Solu-Medrol. (2) Acute hypoxemic respiratory failure Is this a current diagnosis for this admission?: YesPlan: Patient was found in the emergency department to have an oxygen saturation in the low 80s upon ambulation. Patient has required some oxygen while here, and is currently using this. (3) Acute encephalopathy Is this a current diagnosis for this admission?: YesPlan: Multifactorial secondary to underlying sepsis and dementia. Patient was and still is clearly confused. Add 1400 Risperdal and use when necessary Ativan. Patient family reports reports that he has a history of alcohol abuse. (4) Dementia Qualifiers: Dementia type: associated with alcoholism Dementia behavioral disturbance: with behavioral disturbance Qualified Code(s): F03.91 - Unspecified dementia with behavioral disturbance; F10.97 - Alcohol use, unspecified with alcohol-induced persisting dementia Is this a current diagnosis for this admission?: YesPlan: Sitter and supportive care. 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 Give Ativan for sleep. (5) Coronary artery disease Qualifiers: Coronary Disease-Associated Artery/Lesion type: [place] artery [place] vs. transplanted heart: [place] heart Associated angina: without angina Qualified Code(s): I25.10 - Atherosclerotic heart disease of [place] coronary artery without angina pectoris Is this a current diagnosis for this admission?: YesPlan: Clearly evident on CT. Patient had prior CABG. Done is unable to provide me with any history. On metoprolol and aspirin. (6) BPH (benign prostatic hyperplasia) Qualifiers: Prostatic enlargement morphology: unspecified morphology Lower urinary tract symptom presence: symptoms present Qualified Code(s): N40.1 - Benign prostatic hyperplasia with lower urinary tract symptoms Is this a current diagnosis for this admission?: YesPlan: Patient on Flomax and finasteride (7) Vitamin B 12 deficiency Is this a current diagnosis for this admission?: YesPlan: Will continue IM B12 (8) Do not resuscitate Is this a current diagnosis for this admission?: Yes - Time Time Spent with patient: 25-34 minutes Medications reviewed and adjusted accordingly: Yes Anticipated discharge: Acute Rehab
[2016-11-02] MEDS ORDERED: LORAZEPAM INJ 2 MG/1 ML VIAL IV ONE (14:30)
[2016-11-02] MEDS: TAMSULOSIN HCL 0.4 MG CAP.SR.24H PO SCH (17:00)
[2016-11-03] MEDS: RISPERIDONE 1 MG TABLET PO SCH ×3 (06:25→21:17)
[2016-11-03] MEDS: DOXYCYCLINE HYCLATE 100 MG in DEXTROSE 5%-WATER 250 ML IV SCH (06:25)
[2016-11-03] MEDS: ENOXAPARIN SODIUM INJ 40 MG/0.4 ML DISP.SYRIN SUBCUT SCH (07:36)
[2016-11-03 07:38] LABS: ABSOLUTE LYMPHOCYTES (AUTO) 0.6 10^3/uL (0.5-4.7); ABSOLUTE MONOCYTES (AUTO) 0.5 10^3/uL (0.1-1.4); BASOPHILS % (AUTO) 0.4 % (0-2); HEMATOCRIT 38.8 % (37.9-51.0); HEMOGLOBIN 13.6 g/dL (13.5-17.0); LYMPHOCYTES % (AUTO) 10.2 % (13-45); MEAN CORPUSCULAR HEMOGLOBIN 33.7 pg (27.0-33.4); MEAN CORPUSCULAR HGB CONC 35.1 g/dL (32.0-36.0); MEAN CORPUSCULAR VOLUME 96 fl (80-97); MONOCYTES % (AUTO) 8.1 % (3-13); RED BLOOD COUNT 4.04 10^6/uL (4.35-5.55); RED CELL DISTRIBUTION WIDTH 13.6 % (11.5-14.0); SEGMENTED NEUTROPHILS % (AUTO) 81.3 % (42-78); WHITE BLOOD COUNT 6.2 10^3/uL (4.0-10.5)
[2016-11-03] MEDS: IPRATROPIUM/ALBUTEROL 0.5-2.5 MG/3 ML AMPUL NEB SCH ×3 (07:45→19:38)
[2016-11-03 07:58] LABS: ANION GAP 10 (5-19); BLOOD UREA NITROGEN 18 mg/dL (7-20); CALCIUM 9.1 mg/dL (8.4-10.2); CARBON DIOXIDE 24 mmol/L (22-30); CHLORIDE 101 mmol/L (98-107); CREATININE RESULT 0.64 mg/dL (0.52-1.25); GLUCOSE 169 mg/dL (75-110); POTASSIUM 4.4 mmol/L (3.6-5.0); SODIUM 135.1 mmol/L (137-145)
[2016-11-03] MEDS: METOPROLOL SUCCINATE 50 MG TAB.SR.24H PO SCH ×2 (09:27→21:17)
[2016-11-03] MEDS: FAMOTIDINE 20 MG TABLET PO SCH ×2 (09:28→21:17)
[2016-11-03] MEDS: MULTIVITAMINS W-IRON TABLET, CHEWABLE PO SCH (09:28)
[2016-11-03] MEDS: CEFTRIAXONE 1 GM/D5W RTU 50 ML IV SCH (09:28)
[2016-11-03] MEDS: METHYLPREDNISOLONE INJ 40 MG/1 ML SDV IV SCH (09:28)
[2016-11-03] MEDS: GUAIFENESIN 600 MG TABLET.SA PO SCH ×2 (09:28→21:17)
[2016-11-03] MEDS: FINASTERIDE 5 MG TABLET PO SCH (09:28)
[2016-11-03] MEDS: ASPIRIN 81 MG TABLET, ENT COATED PO SCH (09:28)
[2016-11-03] MEDS: FERROUS SULFATE 325 MG TABLET PO SCH ×2 (09:29→17:14)
[2016-11-03] MEDS: CYANOCOBALAMIN (VITAMIN B-12) INJ 1000 MCG/1 ML VIAL IM SCH (11:00)
[2016-11-03] MEDS: LORAZEPAM 0.5 MG TABLET PO PRN ×2 (11:36→17:49)
--- NOTE | 2016-11-03 13:07 | PDOC PROGRESS REPORT ---
Subjective Progress Note for:: 11/03/16 Subjective:: Patient seen earlier today at morning rounds. Patient is more alert today, but is disoriented. Unable to obtain review of systems secondary to encephalopathy/dementia. Physical Exam Vital Signs: Temp Pulse Resp BP Pulse Ox 98.3 F 107 H 18 151/92 H 95 11/03/16 12:00 11/03/16 12:00 11/03/16 12:00 11/03/16 12:00 11/03/16 12:00 Intake & Output 11/02/16 11/03/16 11/04/16 06:59 06:59 06:59 Intake Total 517 1420 Output Total 150 Balance 517 1270 Weight 79.3 kg 78.5 kg Exam: General: awake, alert, oriented x1, no acute respiratory distress HEENT: AT/NC, PERRL, oropharynx is moist, pink, no scleral icterus, no conjunctival injection Neck: No JVD, trachea midline Chest: Bilateral rhonchi CV: Regular rate and rhythm, normal S1 and S2, no murmur, rub, or gallop Abdomen: Soft, nontender to palpation, nondistended, active bowel sounds; no rebound, rigidity, or guarding Extremities: No cyanosis, clubbing or edema Neuro: A+Ox1, left eye ptosis Psych: Normal Mood and affect Results Laboratory Results: 11/03/16 07:28 11/03/16 07:28 11/03/16 11/03/16 07:28 07:28 WBC 6.2 RBC 4.04 L Hgb 13.6 Hct 38.8 MCV 96 MCH 33.7 H MCHC 35.1 RDW 13.6 Plt Count 316 Seg Neutrophils % 81.3 H Lymphocytes % 10.2 L Monocytes % 8.1 Eosinophils % 0.0 Basophils % 0.4 Absolute Neutrophils 5.0 Absolute Lymphocytes 0.6 Absolute Monocytes 0.5 Absolute Eosinophils 0.0 Absolute Basophils 0.0 Sodium 135.1 L Potassium 4.4 Chloride 101 Carbon Dioxide 24 Anion Gap 10 BUN 18 Creatinine 0.64 Est GFR ( Amer) > 60 Est GFR (Non-Af Amer) > 60 Glucose 169 H Calcium 9.1 10/29/16 10:50 Blood Blood Culture - Final NO GROWTH IN 5 DAYS 10/29/16 08:51 Blood Blood Culture - Final NO GROWTH IN 5 DAYS 10/29/16 10/29/16 10/29/16 13:37 13:37 19:15 Creatine Kinase 527 H 697 H CK-MB (CK-2) 6.45 H Troponin I < 0.012 10/29/16 19:15 Creatine Kinase CK-MB (CK-2) 8.05 H Troponin I < 0.012 Impressions: Abdomen/Pelvis CT 10/29/16 00:00 IMPRESSION: Calcified gallstones without CT signs of acute cholecystitis. Probable vascular arterial calcifications of the right and left renal genoveva. No evidence of ureteral stones or hydronephrosis/ hydroureter Heavy atherosclerotic aortic and major branch calcifications Head CT 10/29/16 00:00 IMPRESSION: No acute findings. Chest X-Ray 10/29/16 03:15 IMPRESSION: New small patchiness of the right lung base may indicate pneumonia , atelectasis, or scar compared with prior exam from 2011. Assessment & Plan - Diagnosis (1) Pneumonia Qualifiers: Pneumonia type: due to unspecified organism Laterality: bilateral Lung location: lower lobe of lung Qualified Code(s): J18.9 - Pneumonia, unspecified organism Is this a current diagnosis for this admission?: YesPlan: Patient with bilateral lower lobe pneumonia. Concern for atypical organisms, and community acquired pathogen. Patient on Rocephin and doxycycline day #5 Pulmonary toileting. Transition Solu-Medrol to prednisone (2) Acute hypoxemic respiratory failure Is this a current diagnosis for this admission?: YesPlan: Patient was found in the emergency department to have an oxygen saturation in the low 80s upon ambulation. Patient has required some oxygen while here, and is currently using this. (3) Acute encephalopathy Is this a current diagnosis for this admission?: YesPlan: Multifactorial secondary to underlying sepsis, pneumonia, and dementia. Patient was and still is clearly confused. Doing well on Risperdal and Ativan. Patient family reports reports that he has a history of alcohol abuse. (4) Dementia Qualifiers: Dementia type: associated with alcoholism Dementia behavioral disturbance: with behavioral disturbance Qualified Code(s): F03.91 - Unspecified dementia with behavioral disturbance; F10.97 - Alcohol use, unspecified with alcohol-induced persisting dementia Is this a current diagnosis for this admission?: YesPlan: Sitter and supportive care. 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 Give Ativan for sleep. (5) Coronary artery disease Qualifiers: Coronary Disease-Associated Artery/Lesion type: [place] artery [place] vs. transplanted heart: [place] heart Associated angina: without angina Qualified Code(s): I25.10 - Atherosclerotic heart disease of [place] coronary artery without angina pectoris Is this a current diagnosis for this admission?: YesPlan: Clearly evident on CT. Patient had prior CABG. Done is unable to provide me with any history. On metoprolol and aspirin. (6) BPH (benign prostatic hyperplasia) Qualifiers: Prostatic enlargement morphology: unspecified morphology Lower urinary tract symptom presence: symptoms present Qualified Code(s): N40.1 - Benign prostatic hyperplasia with lower urinary tract symptoms Is this a current diagnosis for this admission?: YesPlan: Patient on Flomax and finasteride (7) Vitamin B 12 deficiency Is this a current diagnosis for this admission?: YesPlan: Will continue IM B12 and will transition to oral beginning tomorrow (8) Do not resuscitate Is this a current diagnosis for this admission?: Yes - Time Time Spent with patient: 25-34 minutes Medications reviewed and adjusted accordingly: Yes Anticipated discharge: SNF
[2016-11-03] MEDS: PREDNISONE 20 MG TABLET PO SCH (17:14)
[2016-11-03] MEDS: DOCUSATE SODIUM 100 MG CAPSULE PO SCH (17:14)
[2016-11-03] MEDS: TAMSULOSIN HCL 0.4 MG CAP.SR.24H PO SCH (17:14)
[2016-11-03] MEDS: DOXYCYCLINE HYCLATE 100 MG TABLET PO SCH (21:17)
[2016-11-04 05:40] LABS: RED BLOOD COUNT 4.12 10^6/uL (4.35-5.55)
[2016-11-04 05:54] LABS: ANION GAP 12 (5-19); BLOOD UREA NITROGEN 21 mg/dL (7-20); CALCIUM 9.6 mg/dL (8.4-10.2); CARBON DIOXIDE 26 mmol/L (22-30); CHLORIDE 101 mmol/L (98-107); CREATININE RESULT 0.74 mg/dL (0.52-1.25); GLUCOSE 125 mg/dL (75-110); POTASSIUM 4.4 mmol/L (3.6-5.0); SODIUM 139.1 mmol/L (137-145)
[2016-11-04 06:06] LABS: ABSOLUTE LYMPHOCYTES (AUTO) 1.2 10^3/uL (0.5-4.7); ABSOLUTE MONOCYTES (AUTO) 0.9 10^3/uL (0.1-1.4); ABSOLUTE NEUT (AUTO) 6.1 10^3/uL (1.7-8.2); BASOPHILS % (AUTO) 0.4 % (0-2); EOSINOPHILS % (AUTO) 0.1 % (0-6); HEMATOCRIT 38.9 % (37.9-51.0); HEMOGLOBIN 13.5 g/dL (13.5-17.0); HGB HCT DIFFERENCE 1.6; LYMPHOCYTES % (AUTO) 14.9 % (13-45); MEAN CORPUSCULAR HEMOGLOBIN 32.9 pg (27.0-33.4); MEAN CORPUSCULAR HGB CONC 34.8 g/dL (32.0-36.0); MEAN CORPUSCULAR VOLUME 95 fl (80-97); MONOCYTES % (AUTO) 10.6 % (3-13); RED CELL DISTRIBUTION WIDTH 13.5 % (11.5-14.0); WHITE BLOOD COUNT 8.3 10^3/uL (4.0-10.5)
[2016-11-04] MEDS: RISPERIDONE 1 MG TABLET PO SCH ×3 (06:34→23:31)
[2016-11-04] MEDS: FERROUS SULFATE 325 MG TABLET PO SCH ×2 (08:07→17:57)
[2016-11-04] MEDS: ENOXAPARIN SODIUM INJ 40 MG/0.4 ML DISP.SYRIN SUBCUT SCH (08:07)
[2016-11-04] MEDS: IPRATROPIUM/ALBUTEROL 0.5-2.5 MG/3 ML AMPUL NEB SCH ×3 (08:24→20:58)
[2016-11-04] MEDS: CEFTRIAXONE 1 GM/D5W RTU 50 ML IV SCH (09:36)
[2016-11-04] MEDS: DOCUSATE SODIUM 100 MG CAPSULE PO SCH ×2 (09:43→17:58)
[2016-11-04] MEDS: ASPIRIN 81 MG TABLET, ENT COATED PO SCH (09:43)
[2016-11-04] MEDS: METOPROLOL SUCCINATE 50 MG TAB.SR.24H PO SCH ×2 (09:43→23:30)
[2016-11-04] MEDS: PREDNISONE 20 MG TABLET PO SCH ×3 (09:43→17:58)
[2016-11-04] MEDS: GUAIFENESIN 600 MG TABLET.SA PO SCH ×2 (09:43→23:30)
[2016-11-04] MEDS: DOXYCYCLINE HYCLATE 100 MG TABLET PO SCH ×2 (09:44→23:29)
[2016-11-04] MEDS: CYANOCOBALAMIN (VITAMIN B-12) 1,000 MCG TABLET PO SCH (09:44)
[2016-11-04] MEDS: MULTIVITAMINS W-IRON TABLET, CHEWABLE PO SCH (09:44)
[2016-11-04] MEDS: FINASTERIDE 5 MG TABLET PO SCH (09:44)
[2016-11-04] MEDS: FAMOTIDINE 20 MG TABLET PO SCH ×2 (09:44→23:30)
--- NOTE | 2016-11-04 13:45 | PDOC PROGRESS REPORT ---
Subjective Progress Note for:: 11/04/16 Subjective:: Patient seen earlier today at morning rounds. Patient is more alert today, but is disoriented. Patient denies chest pain, shortness of breath, abdominal pain, nausea, vomiting , fevers, chills, diarrhea, constipation, headache, new onset weakness. Physical Exam Vital Signs: Temp Pulse Resp BP Pulse Ox 97.3 F 107 H 20 129/84 H 100 11/03/16 23:36 11/03/16 23:36 11/03/16 23:36 11/03/16 23:36 11/03/16 23:36 Intake & Output 11/03/16 11/04/16 11/05/16 06:59 06:59 06:59 Intake Total 1420 1350 Output Total 150 Balance 1270 1350 Weight 78.5 kg 79.1 kg Exam: General: awake, alert, oriented x1, no acute respiratory distress HEENT: AT/NC, PERRL, oropharynx is moist, pink, no scleral icterus, no conjunctival injection Neck: No JVD, trachea midline Chest: Occasional Bilateral rhonchi CV: Regular rate and rhythm, normal S1 and S2, no murmur, rub, or gallop Abdomen: Soft, nontender to palpation, nondistended, active bowel sounds; no rebound, rigidity, or guarding Extremities: No cyanosis, clubbing or edema Neuro: A+Ox1, left eye ptosis Psych: Normal Mood and affect Results Laboratory Results: 11/04/16 05:25 11/04/16 05:25 11/03/16 11/04/16 11/04/16 07:28 05:25 05:25 WBC 8.3 RBC 4.12 L Hgb 13.5 Hct 38.9 MCV 95 MCH 32.9 MCHC 34.8 RDW 13.5 Plt Count 365 Seg Neutrophils % 74.0 Lymphocytes % 14.9 Monocytes % 10.6 Eosinophils % 0.1 Basophils % 0.4 Absolute Neutrophils 6.1 Absolute Lymphocytes 1.2 Absolute Monocytes 0.9 Absolute Eosinophils 0.0 Absolute Basophils 0.0 Sodium 135.1 L 139.1 Potassium 4.4 4.4 Chloride 101 101 Carbon Dioxide 24 26 Anion Gap 10 12 BUN 18 21 H Creatinine 0.64 0.74 Est GFR ( Amer) > 60 > 60 Est GFR (Non-Af Amer) > 60 > 60 Glucose 169 H 125 H Calcium 9.1 9.6 10/29/16 10:50 Blood Blood Culture - Final NO GROWTH IN 5 DAYS 10/29/16 08:51 Blood Blood Culture - Final NO GROWTH IN 5 DAYS 10/29/16 10/29/16 10/29/16 13:37 13:37 19:15 Creatine Kinase 527 H 697 H CK-MB (CK-2) 6.45 H Troponin I < 0.012 10/29/16 19:15 Creatine Kinase CK-MB (CK-2) 8.05 H Troponin I < 0.012 Impressions: Abdomen/Pelvis CT 10/29/16 00:00 IMPRESSION: Calcified gallstones without CT signs of acute cholecystitis. Probable vascular arterial calcifications of the right and left renal genvoeva. No evidence of ureteral stones or hydronephrosis/ hydroureter Heavy atherosclerotic aortic and major branch calcifications Head CT 10/29/16 00:00 IMPRESSION: No acute findings. Chest X-Ray 10/29/16 03:15 IMPRESSION: New small patchiness of the right lung base may indicate pneumonia , atelectasis, or scar compared with prior exam from 2012. Assessment & Plan - Diagnosis (1) Pneumonia Qualifiers: Pneumonia type: due to unspecified organism Laterality: bilateral Lung location: lower lobe of lung Qualified Code(s): J18.9 - Pneumonia, unspecified organism Is this a current diagnosis for this admission?: YesPlan: Patient with bilateral lower lobe pneumonia. Concern for atypical organisms, and community acquired pathogen. Patient completed Rocephin and doxycycline day #5. We'll transition to oral Ceftin and doxycycline for an additional 5 days. Pulmonary toileting. Increase oral prednisone. (2) Acute hypoxemic respiratory failure Is this a current diagnosis for this admission?: YesPlan: Patient was found in the emergency department to have an oxygen saturation in the low 80s upon ambulation. Patient has required some oxygen while here, and is currently using this. (3) Acute encephalopathy Is this a current diagnosis for this admission?: YesPlan: Multifactorial secondary to underlying sepsis, pneumonia, and dementia. Patient was and still is clearly confused. Doing well on Risperdal and Ativan. Patient family reports reports that he has a history of alcohol abuse. (4) Dementia Qualifiers: Dementia type: associated with alcoholism Dementia behavioral disturbance: with behavioral disturbance Qualified Code(s): F03.91 - Unspecified dementia with behavioral disturbance; F10.97 - Alcohol use, unspecified with alcohol-induced persisting dementia Is this a current diagnosis for this admission?: YesPlan: Sitter and supportive care. 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 Give Ativan for sleep. (5) Coronary artery disease Qualifiers: Coronary Disease-Associated Artery/Lesion type: [place] artery [place] vs. transplanted heart: [place] heart Associated angina: without angina Qualified Code(s): I25.10 - Atherosclerotic heart disease of [place] coronary artery without angina pectoris Is this a current diagnosis for this admission?: YesPlan: Clearly evident on CT. Patient had prior CABG. Done is unable to provide me with any history. On metoprolol and aspirin. (6) BPH (benign prostatic hyperplasia) Qualifiers: Prostatic enlargement morphology: unspecified morphology Lower urinary tract symptom presence: symptoms present Qualified Code(s): N40.1 - Benign prostatic hyperplasia with lower urinary tract symptoms Is this a current diagnosis for this admission?: YesPlan: Patient on Flomax and finasteride (7) Vitamin B 12 deficiency Is this a current diagnosis for this admission?: YesPlan: Oral B-12 supplementation (8) Do not resuscitate Is this a current diagnosis for this admission?: Yes (9) Sepsis Qualifiers: Sepsis type: sepsis due to unspecified organism Qualified Code(s): A41.9 - Sepsis, unspecified organism Is this a current diagnosis for this admission?: YesPlan: Sepsis criteria met on admission and is due to patient's pneumonia. - Time Time Spent with patient: 25-34 minutes Medications reviewed and adjusted accordingly: Yes Anticipated discharge: SNF Within: within 48 hours
[2016-11-04] MEDS: TAMSULOSIN HCL 0.4 MG CAP.SR.24H PO SCH (17:57)
[2016-11-04] MEDS: CEFUROXIME 500 MG TABLET PO SCH (17:58)
[2016-11-04] MEDS: LORAZEPAM 1 MG TABLET PO PRN (18:25)
[2016-11-05 05:38] LABS: ABSOLUTE LYMPHOCYTES (AUTO) 1.1 10^3/uL (0.5-4.7); ABSOLUTE MONOCYTES (AUTO) 0.7 10^3/uL (0.1-1.4); ABSOLUTE NEUT (AUTO) 8.1 10^3/uL (1.7-8.2); BASOPHILS % (AUTO) 0.3 % (0-2); HEMATOCRIT 40.6 % (37.9-51.0); HEMOGLOBIN 13.9 g/dL (13.5-17.0); HGB HCT DIFFERENCE 1.1; LYMPHOCYTES % (AUTO) 11.4 % (13-45); MEAN CORPUSCULAR HEMOGLOBIN 32.9 pg (27.0-33.4); MEAN CORPUSCULAR HGB CONC 34.2 g/dL (32.0-36.0); MEAN CORPUSCULAR VOLUME 96 fl (80-97); MONOCYTES % (AUTO) 7.3 % (3-13); RED BLOOD COUNT 4.22 10^6/uL (4.35-5.55); RED CELL DISTRIBUTION WIDTH 13.8 % (11.5-14.0)
[2016-11-05 05:58] LABS: ANION GAP 11 (5-19); BLOOD UREA NITROGEN 28 mg/dL (7-20); CALCIUM 9.1 mg/dL (8.4-10.2); CARBON DIOXIDE 25 mmol/L (22-30); CHLORIDE 98 mmol/L (98-107); CREATININE RESULT 0.62 mg/dL (0.52-1.25); GLUCOSE 146 mg/dL (75-110); POTASSIUM 4.6 mmol/L (3.6-5.0); SODIUM 134.3 mmol/L (137-145)
[2016-11-05] MEDS: RISPERIDONE 1 MG TABLET PO SCH ×2 (06:38→16:17)
[2016-11-05] MEDS: IPRATROPIUM/ALBUTEROL 0.5-2.5 MG/3 ML AMPUL NEB SCH ×2 (08:14→14:27)
[2016-11-05] MEDS: FERROUS SULFATE 325 MG TABLET PO SCH (08:29)
[2016-11-05] MEDS: ENOXAPARIN SODIUM INJ 40 MG/0.4 ML DISP.SYRIN SUBCUT SCH (08:29)
[2016-11-05] MEDS ORDERED: MEGESTROL ACETATE SUSP 400 MG/10 ML UDCUP PO SCH (10:00)
[2016-11-05] MEDS ORDERED: TIOTROPIUM BROMIDE DPI 5 CAP/KIT (18 MCG/CAP) IH SCH (10:00)
[2016-11-05] MEDS: CEFUROXIME 500 MG TABLET PO SCH (10:45)
[2016-11-05] MEDS: DOCUSATE SODIUM 100 MG CAPSULE PO SCH (10:46)
[2016-11-05] MEDS: FINASTERIDE 5 MG TABLET PO SCH (10:46)
[2016-11-05] MEDS: ASPIRIN 81 MG TABLET, ENT COATED PO SCH (10:46)
[2016-11-05] MEDS: FAMOTIDINE 20 MG TABLET PO SCH (10:46)
[2016-11-05] MEDS: PREDNISONE 20 MG TABLET PO SCH ×2 (10:46→16:12)
[2016-11-05] MEDS: METOPROLOL SUCCINATE 50 MG TAB.SR.24H PO SCH (10:47)
[2016-11-05] MEDS: CYANOCOBALAMIN (VITAMIN B-12) 1,000 MCG TABLET PO SCH (10:47)
[2016-11-05] MEDS: MULTIVITAMINS W-IRON TABLET, CHEWABLE PO SCH (10:48)
[2016-11-05] MEDS: DOXYCYCLINE HYCLATE 100 MG TABLET PO SCH (10:48)
[2016-11-05] MEDS: GUAIFENESIN 600 MG TABLET.SA PO SCH (10:48)
--- NOTE | 2016-11-05 14:04 | PDOC DISCHARGE SUMMARY ---
General - Admit/Disc Date/PCP Admission Date/Primary Care Provider: 10/29/16 07:38 Discharge Date: 11/05/16 - Discharge Diagnosis (1) Sepsis Is this a current diagnosis for this admission?: Yes (2) Pneumonia Is this a current diagnosis for this admission?: Yes (3) Acute hypoxemic respiratory failure Is this a current diagnosis for this admission?: Yes (4) Acute encephalopathy Is this a current diagnosis for this admission?: Yes (5) Dementia Is this a current diagnosis for this admission?: Yes (6) Coronary artery disease Is this a current diagnosis for this admission?: Yes (7) BPH (benign prostatic hyperplasia) Is this a current diagnosis for this admission?: Yes (8) Vitamin B 12 deficiency Is this a current diagnosis for this admission?: Yes (9) Do not resuscitate Is this a current diagnosis for this admission?: Yes - Additional Information Resuscitation Status: Full Code Discharge Diet: Cardiac Discharge Activity: Activity As Tolerated Home Medications: Aspirin [Ecotrin 81 mg EC Tablet] 81 mg PO DAILY #0 tabec 11/05/16 Cefuroxime Axetil [Ceftin 500 mg Tablet] 500 mg PO BID #8 tablet 11/05/16 Cyanocobalamin (Vitamin B-12) [Vitamin B-12 1000 mcg Tablet] 1,000 mcg PO DAILY tablet 11/05/16 Docusate Sodium [Colace 100 mg Capsule] 100 mg PO BID capsule 11/05/16 Doxycycline Hyclate [Vibramycin 100 mg Tablet] 100 mg PO Q12 #8 tablet 11/05/16 Famotidine [Pepcid 20 mg Tablet] 20 mg PO Q12 tablet 11/05/16 Ferrous Sulfate [Feosol 325 mg Tablet] 325 mg PO BIDPCBS tablet 11/05/16 Finasteride [Proscar 5 mg Tablet] 5 mg PO DAILY tablet 11/05/16 Ipratropium/Albuterol Sulfate [Duoneb 3 ml Ampul] 3 ml NEB [id number] vial.neb 03/16 Levalbuterol HCl [Xopenex Neb 1.25 mg/3 ml Ampul] 1.25 mg NEB RTQ2HP PRN vial.neb 11/05/16 Lorazepam [Ativan 1 mg Tablet] 0.5 mg PO Q6HP PRN #10 tablet 11/05/16 Lorazepam [Ativan 1 mg Tablet] 2 mg PO HSP PRN #20 tablet 11/05/16 Megestrol Acetate [Megace [place] 400 mg/10 ml Udcup] 400 mg PO DAILY udc Metoprolol Succinate [Toprol Xl 50 mg Tab.sr] 50 mg PO Q12 tab.sr.24h 11/05/16 Multivitamins W-Iron [Flintstones Chewable Multivit W/Fe Tab] 2 tab PO DAILY tab.chew 11/05/16 Prednisone [Deltasone 20 mg Tablet] 20 mg PO TID tablet 11/05/16 Risperidone [Risperdal 1 mg Tablet] 1 mg PO Q8 #90 tablet 11/05/16 Tamsulosin HCl [Flomax 0.4 mg Cap.sr] 0.4 mg PO PCSUPPER cap.sr.24h 11/05/16 Tiotropium [place] [Spiriva [place] 5 Cap/Kit (18 Mcg/Cap)] 1 cap IH DAILY kit 11/05/16 History of Present Illness History of Present Illness: RAMESH GUERRERO is a 80 year old male is unaccompanied in the emergency department and history is primarily obtained from the emergency department notes. Apparently, patient was brought to the emergency department by his son after being found by the police for his father driving until he ran out of gas. He was confused and also had a cough at that time. Currently, patient is found to be hypoxic upon ambulation, with cough and dehydration. Patient is quite confused and is unable to provide me any history. Hospital Course Hospital Course: Patient was found to have pneumonia and treated with doxycycline and Rocephin as well as Solu-Medrol and breathing treatments. Patient's acute encephalopathy improved somewhat with the addition of evening Ativan and daily Risperdal. Patient's dementia was quite obvious even after improvement of his pneumonia. He was easily transitioned from IV to oral steroids as well as antibiotics. Patient was seen by physical therapy and he is a minimum assist of 2 due to balance. Patient was given thiamine and folic acid. Patient was found also have an iron deficiency anemia but no difficulty with stooling. Patient was started on oral iron. Patient was also found to be B 12 deficient and was started on vitamin B-12 supplementation. In discussion with patient's family they do understand that he can no longer live alone. Patient was accepted to [facility]. Currently patient is stable and has been out of restraints for more than 24 hours and ready for discharge. Physical Exam Vital Signs: Temp Pulse Resp BP Pulse Ox 98.6 F 95 16 122/61 94 11/05/16 11:32 11/05/16 11:32 11/05/16 11:32 11/05/16 11:32 11/05/16 11:32 Intake & Output 11/04/16 11/05/16 11/06/16 06:59 06:59 06:59 Intake Total 1350 1061 Output Total 611 Balance 1350 450 Weight 79.1 kg 79 kg Exam: General: awake, alert, oriented x1, no acute respiratory distress HEENT: AT/NC, PERRL, oropharynx is moist, pink, no scleral icterus, no conjunctival injection Neck: No JVD, trachea midline Chest: Occasional Bilateral rhonchi CV: Regular rate and rhythm, normal S1 and S2, no murmur, rub, or gallop Abdomen: Soft, nontender to palpation, nondistended, active bowel sounds; no rebound, rigidity, or guarding Extremities: No cyanosis, clubbing or edema Neuro: A+Ox1, left eye ptosis Psych: Normal Mood and affect Results Laboratory Results: 11/05/16 05:02 11/05/16 05:02 11/05/16 11/05/16 05:02 05:02 WBC 10.0 RBC 4.22 L Hgb 13.9 Hct 40.6 MCV 96 MCH 32.9 MCHC 34.2 RDW 13.8 Plt Count 352 Seg Neutrophils % 81.0 H Lymphocytes % 11.4 L Monocytes % 7.3 Eosinophils % 0.0 Basophils % 0.3 Absolute Neutrophils 8.1 Absolute Lymphocytes 1.1 Absolute Monocytes 0.7 Absolute Eosinophils 0.0 Absolute Basophils 0.0 Sodium 134.3 L Potassium 4.6 Chloride 98 Carbon Dioxide 25 Anion Gap 11 BUN 28 H Creatinine 0.62 Est GFR ( Amer) > 60 Est GFR (Non-Af Amer) > 60 Glucose 146 H Calcium 9.1 10/29/16 10/29/16 10/29/16 13:37 13:37 19:15 Creatine Kinase 527 H 697 H CK-MB (CK-2) 6.45 H Troponin I < 0.012 10/29/16 19:15 Creatine Kinase CK-MB (CK-2) 8.05 H Troponin I < 0.012 Impressions: Abdomen/Pelvis CT 10/29/16 00:00 IMPRESSION: Calcified gallstones without CT signs of acute cholecystitis. Probable vascular arterial calcifications of the right and left renal genoveva. No evidence of ureteral stones or hydronephrosis/ hydroureter Heavy atherosclerotic aortic and major branch calcifications Head CT 10/29/16 00:00 IMPRESSION: No acute findings. Chest X-Ray 10/29/16 03:15 IMPRESSION: New small patchiness of the right lung base may indicate pneumonia , atelectasis, or scar compared with prior exam from 2012. Qualifiers PATEINT BEING DISCHARGED WITH ANY OF THE FOLLOWING DIAGNOSIS?: No Plan Time Spent: Greater than 30 Minutes
[2016-11-05] MEDS: LORAZEPAM 1 MG TABLET PO PRN (16:17)
[2016-11-05 17:21] VITALS: BP 103/64
== END 2016-11-05 17:23 | DRG 193 ==
LOC: ER 02:16 → EH 07:38 → 4W 18:49 → 4S 11-02 04:00
PROVIDERS: ADMIT Family Medicine; ATTEND Family Medicine
PROC: 3E0F73Z Introduction of Anti-inflammatory into Respiratory Tract, Via Natural or Artificial Opening (ICD-10-PCS; principal; 2016-10-29)
DX: J18.9 Pneumonia, unspecified organism (principal); J96.01 Acute respiratory failure with hypoxia; F03.91 Unspecified dementia, unspecified severity, with behavioral disturbance; I25.10 Atherosclerotic heart disease of native coronary artery without angina pectoris; N40.1 Benign prostatic hyperplasia with lower urinary tract symptoms; E53.8 Deficiency of other specified B group vitamins; E86.0 Dehydration; D50.9 Iron deficiency anemia, unspecified; E78.5 Hyperlipidemia, unspecified; I10 Essential (primary) hypertension; E11.9 Type 2 diabetes mellitus without complications; K80.20 Calculus of gallbladder without cholecystitis without obstruction; F10.97 Alcohol use, unspecified with alcohol-induced persisting dementia; I45.10 Unspecified right bundle-branch block; Z66 Do not resuscitate; I25.2 Old myocardial infarction; Z95.1 Presence of aortocoronary bypass graft; Z78.1 Physical restraint status; Z79.82 Long term (current) use of aspirin; Z79.899 Other long term (current) drug therapy
CPT/HCPCS: 36415; 70450; 71010; 74176; 80048; 80053; 80307; 81001; 82550; 82553; 82607; 82728; 82746; 82803; 82962; 83540; 83550; 83735; 83880; 84443; 84466; 84484; 85025; 85045; 86592; 87040; 87086; 93005; 93010; 96361; 96374; 96375; 99285; G8978-GP; G8979-GP; G8996-GN; G8997-GN; G8998-GN; J0696; J1650; J1815; J1956; J2060; J2310; J2920; J3420; J3490; J7030; J7060; J7512; J7620; S0164

== ENCOUNTER 2016-11-13 16:27 | Emergency (ER) | payer MEDICARE, BC ==
--- NOTE | 2016-11-13 21:12 | ER Document Report ---
ED Extremity Problem, Upper - General Time Seen by Provider: 11/13/16 20:06 Notes: Patient is a resident a local detention who is seen here because of an elbow injury. They had a mobile x-ray unit come to the detention and x-ray the patient's right elbow and the report says that the proximal radius is dislocated. The patient is pleasantly demented so he cannot provide a reliable history of what happened or when it happened. There is no one else here with the patient. I have re-x-rayed the elbow and it shows some deformity of the radial head and it is likely to be dislocated, but they cannot tell whether it is a new or recent injury or an old chronic condition. Patient moves the right arm fairly easily throughout a wide, but not complete range of motion, suggesting a subacute or chronic condition. There is no evidence of soft tissue swelling. Patient has good use of his hand and fingers distal to that elbow. TRAVEL OUTSIDE OF THE [place] IN LAST 30 DAYS: No - Related Data Allergies/Adverse Reactions: No Known Allergies Allergy (Verified 12/08/13 12:43) Past Medical History - Social History Smoking Status: Unknown if Ever Smoked Cigarette use (# per day): No Family History: None, Reviewed & Not Pertinent - Past Medical History Cardiac Medical History: Reports: Hx Coronary Artery Disease, Hx Heart Attack, Hx Hypercholesterolemia, Hx Hypertension Endocrine Medical History: Reports: Hx Diabetes Mellitus Type 2 Malignancy Medical History: Denies Hx Lung Cancer Musculoskeltal Medical History: Denies Hx Multiple Sclerosis Psychiatric Medical History: Denies: Hx Dementia Past Surgical History: Reports: Hx Cardiac Surgery - bypass x' s 5, Hx Coronary Artery Bypass Graft. Denies: Hx Colostomy, Hx Pacemaker - Immunizations Hx Diphtheria, Pertussis, Tetanus Vaccination: Yes - unsure Hx Pneumococcal Vaccination: 06/30/11 Review of Systems - Review of Systems -: Yes ROS unobtainable due to patient's medical condition - Pt has dementia and does not answer questions reliably about his medical Hx Physical Exam - Vital signs Interpretation: Normal, Other - Temp 98.6, pulse 96, blood pressure 116/66, respirations 18, O2 sat 100% on room air - Notes Notes: PHYSICAL EXAMINATION: GENERAL: Well-appearing, in no acute distress. Vital signs are all normal. HEAD: Atraumatic, normocephalic. NECK: Normal range of motion, supple. LUNGS: Breath sounds clear and equal bilaterally. No rib tenderness. HEART: Regular rate and rhythm without murmurs. ABDOMEN: Soft, nontender. No guarding or rebound. BACK: No tenderness throughout entire back. EXTREMITIES: Normal range of motion without pain except that the patient has some limitation in the movement of the right elbow. There is no soft tissue swelling of that joint. I cannot fully extend it or pronate or supinate it. Patient exhibits pain when I try to push it past a certain point. NEUROLOGICAL: Normal speech, gait: Patient can stand to use the urinal, although he is a little unsteady on his feet. He sits in the wheelchair most of the time, but can ambulate with assistance.. Normal sensory, motor, and reflex exams. Awake, alert, and oriented x3. Cranial nerves normal. SKIN: Warm, dry, no rashes. Course - Re-evaluation Re-evalutation: 11/13/16 21:16 We do not have any orthopedic coverage for the emergency department tonight. We are not permitted to call the orthopedist in these situations. I have called Dr. Sanchez, patient's private doctor, and have recommended we treat this with a sling and an orthopedic follow-up. I have concerns about trying to reduce this dislocation as I am not certain that is acute and leaning towards it being a chronic finding. Patient's physical exam is not consistent with an acute injury that we are seeing on the x-rays. Dr. Sanchez is in agreement with that treatment plan. - Diagnostic Test Radiology reviewed: Image reviewed, Reports reviewed - X-ray has a deformity of the radial head which is likely a fracture, radiologist cannot date this finding from the x-rays. There appears to be some anterior dislocation of the proximal radius. Once again, radiologist cannot date this finding. Be an old finding. Procedures - Immobilization Right Elbow Pre-Proc Neuro Vasc Exam: Normal Immobilizer type: Sling Performed by: PCT Post-Proc Neuro Vasc Exam: Unchanged from pre-exam Discharge - Discharge Clinical Impression: Injury of right elbow Qualifiers: Encounter type: initial encounter Qualified Code(s): S59.901A - Unspecified injury of right elbow, initial encounter Dislocation of radial head, right, closed Qualifiers: Encounter type: initial encounter Qualified Code(s): S53.004A - Unspecified dislocation of right radial head, initial encounter Condition: Stable Disposition: REHAB FACILITY Additional Instructions: Dislocation right elbow You have suffered a dislocation of your right elbow joint. It has been reduced (put back in place). It will take time for the tissues around the joint to heal. The joint will be immobilized at first. If possible, elevate the injured area and apply ice packs. After healing is underway, the joint will require [id number] and strengthening exercises. The follow-up care is important in avoiding residual problems following your dislocation. If you note any numbness, muscle weakness, or severe swelling in the affected area, call the doctor or return for re-evaluation at once. Sling as Treatment A sling has been applied to protect the injury. This is adequate immobilization for this type of injury -- no cast or brace is required. Keep the sling on at all times until instructed to remove it by the doctor. Even though no cast or splint is needed, you must use the sling. If you use the arm too soon, it may not heal properly! If necessary, the sling can be adjusted for comfort. Return if you are encountering problems with the sling. USE OF ACETAMINOPHEN (Tylenol): Acetaminophen may be taken for pain relief or fever control. It's much safer than aspirin, offering a wider range of "safe" dosages. It is safe during . Some brand names are Tylenol, Panadol, Datril, Anacin 3, Tempra, and Liquiprin. Acetaminophen can be repeated every four hours. The following are maximum recommended dosages: WEIGHT Dose Drops Elixir Chewable( 80mg) (LBS.) drprs=droppers tsp=teaspoon >89 pounds or adults 650 mg to 900 mg Acetaminophen can be repeated every four hours. Maximum dose not to exceed 4000 mg a day. These maximum recommended dosages are slightly higher than the dosages written on the product container, but these dosages are very safe and below the toxic dosage for acetaminophen. FOLLOW-UP CARE: If you have been referred to a physician for follow-up care, call the physician s office for an appointment as you were instructed or within the next two days. If you experience worsening or a significant change in your symptoms, notify the physician immediately or return to the Emergency Department at any time for re-evaluation. I have spoken with Dr. Sanchez and he will arrange for orthopedic consultation and follow-up of your right elbow. Referrals: SILVIO SANCHEZ MD [Primary Care Provider] - Follow up as needed
[2016-11-13 23:10] VITALS: BP 118/76
== END 2016-11-13 23:00 ==
LOC: ER 16:27
DX: S59.901A Unspecified injury of right elbow, initial encounter (principal); S53.004A Unspecified dislocation of right radial head, initial encounter; X58.XXXA Exposure to other specified factors, initial encounter; F03.90 Unspecified dementia, unspecified severity, without behavioral disturbance, psychotic disturbance, mood disturbance, and anxiety; Y92.129 Unspecified place in nursing home as the place of occurrence of the external cause; I25.10 Atherosclerotic heart disease of native coronary artery without angina pectoris; I25.2 Old myocardial infarction; E78.00 Pure hypercholesterolemia, unspecified; I10 Essential (primary) hypertension; E11.9 Type 2 diabetes mellitus without complications; Z95.1 Presence of aortocoronary bypass graft
CPT/HCPCS: 85025; 99284

== ENCOUNTER 2017-03-26 11:04 | Emergency (ER) | payer MEDICARE, BC ==
--- NOTE | 2017-03-26 11:48 | ER Document Report ---
ED General - General Chief Complaint: Blood Pressure Problem Stated Complaint: WEAKNESS Time Seen by Provider: 03/26/17 11:31 Mode of Arrival: Medic Information source: Patient, Outside Facility Records Cannot obtain history due to: Dementia Notes: 81-year-old male with dementia presents from care facility where he was noted to have low blood pressure. Blood pressure was stated to be 70s over 40s, when EMS arrived his blood pressure was stable. There was a concern for one episode of diarrhea as well. Patient himself denies any complaints at all but does have dementia. He is a DNR TRAVEL OUTSIDE OF THE [place] IN LAST 30 DAYS: No - HPI Onset: Just prior to arrival Onset/Duration: Sudden Quality of pain: No pain Severity: None Pain Level: Denies Associated symptoms: Diarrhea Exacerbated by: Denies Relieved by: Denies Similar symptoms previously: No Recently seen / treated by doctor: No - Related Data Allergies/Adverse Reactions: No Known Allergies Allergy (Verified 12/08/13 12:43) Past Medical History - Social History Smoking Status: Never Smoker Cigarette use (# per day): No Chew tobacco use (# tins/day): No Smoking Education Provided: No Frequency of alcohol use: None Drug Abuse: None Family History: None, Reviewed & Not Pertinent - Past Medical History Cardiac Medical History: Reports: Hx Coronary Artery Disease, Hx Heart Attack, Hx Hypercholesterolemia, Hx Hypertension Endocrine Medical History: Reports: Hx Diabetes Mellitus Type 2 Malignancy Medical History: Denies Hx Lung Cancer Musculoskeltal Medical History: Denies Hx Multiple Sclerosis Psychiatric Medical History: Denies: Hx Dementia Past Surgical History: Reports: Hx Cardiac Surgery - bypass x' s 5, Hx Coronary Artery Bypass Graft. Denies: Hx Colostomy, Hx Pacemaker - Immunizations Hx Diphtheria, Pertussis, Tetanus Vaccination: Yes - unsure Hx Pneumococcal Vaccination: 06/30/11 Review of Systems - Review of Systems Notes: REVIEW OF SYSTEMS: CONSTITUTIONAL : Denies fever, chills, or sweats. Denies recent illness. EENT: Denies eye, ear, throat, or mouth pain or symptoms. Denies nasal or sinus congestion or discharge. Denies throat, tongue, or mouth swelling or difficulty swallowing. CARDIOVASCULAR: Denies chest pain. Denies palpitations or racing or irregular heart beat. Denies ankle edema. RESPIRATORY: Denies cough, cold, or chest congestion. Denies shortness of breath, difficulty breathing, or wheezing. GASTROINTESTINAL: Denies abdominal pain or distention. Denies nausea, vomiting , or diarrhea. Denies blood in vomitus, stools, or per rectum. Denies black, tarry stools. Denies constipation. GENITOURINARY: Denies difficulty urinating, painful urination, burning, frequency, blood in urine, or discharge. MUSCULOSKELETAL: Denies back or neck pain or stiffness. Denies joint pain or swelling. SKIN: Denies rash, lesions or sores. HEMATOLOGIC : Denies easy bruising or bleeding. LYMPHATIC: Denies swollen, enlarged glands. NEUROLOGICAL: Denies confusion or altered mental status. Denies passing out or loss of consciousness. Denies dizziness or lightheadedness. Denies headache. Denies weakness or paralysis or loss of use of either side. Denies problems with gait or speech. Denies sensory loss, numbness, or tingling. Denies seizures. PSYCHIATRIC: Denies anxiety or stress. Denies depression, suicidal ideation, or homicidal ideation. ALL OTHER SYSTEMS REVIEWED AND NEGATIVE. Dictation was performed using [employer] voice recognition software PHYSICAL EXAMINATION: GENERAL: Well-appearing, well-nourished and in no acute distress. HEAD: Atraumatic, normocephalic. EYES: Pupils equal round and reactive to light, extraocular movements intact, sclera anicteric, conjunctiva are normal. ENT: Nares patent, oropharynx clear without exudates. Moist mucous membranes. NECK: Normal range of motion, supple without lymphadenopathy LUNGS: Breath sounds clear to auscultation bilaterally and equal. No wheezes rales or rhonchi. HEART: Regular rate and rhythm without murmurs ABDOMEN: Soft, nontender, nondistended abdomen. No guarding, no rebound. No masses appreciated. Musculoskeletal: Normal range of motion, no pitting or edema. No cyanosis. NEUROLOGICAL: Cranial nerves grossly intact. Normal speech, normal gait. Normal sensory, motor exams alert and oriented times person place PSYCH: Normal mood, normal affect. SKIN: Warm, Dry, normal turgor, no rashes or lesions noted. Physical Exam - Vital signs Vitals: Resp BP 16 124/63 03/26/17 11:11 03/26/17 11:11 Course - Re-evaluation Re-evalutation: 03/26/17 16:29 Patient is alert oriented 2, he has no complaints at all, my physical examination noted no significant abnormality, given the patient DNR and has 0 complaints at all I do not see any purpose in doing any testing at this time patient has been instructed to return immediately if there are any other concerns and given that he lives at a care facility where they do watch him closely I would expect him to return immediately if there are any issues After performing a Medical Screening Examination, I estimate there is LOW risk for ACUTE CORONARY SYNDROME, RESPIRATORY FAILURE, SEPSIS OR MENINGITIS, thus I consider the discharge disposition reasonable. I have reevaluated this patient multiple times and no significant life threatening changes are noted. The patient and I have discussed the diagnosis and risks, and we agree with discharging home with close follow-up. We also discussed returning to the Emergency Department immediately if new or worsening symptoms occur. We have discussed the symptoms which are most concerning (e.g., changing or worsening pain, trouble swallowing or breathing, neck stiffness, fever) that necessitate immediate return. - Vital Signs Vital signs: Temp Pulse Resp BP Pulse Ox 97.9 F 61 15 113/60 94 03/26/17 11:16 03/26/17 11:16 03/26/17 12:13 03/26/17 12:13 03/26/17 12:13 Discharge - Discharge Clinical Impression: Do not resuscitate, No complaints Dementia Qualifiers: Dementia type: unspecified type Dementia behavioral disturbance: without behavioral disturbance Qualified Code(s): F03.90 - Unspecified dementia without behavioral disturbance Condition: Stable Disposition: HOME, SELF-CARE Additional Instructions: At this time patient has no complaints, vital signs are stable, physical examination was negative, return immediately if there are any other concerns Referrals: SILVIO SANCHEZ MD [Primary Care Provider] - Follow up as needed
[2017-03-26 12:11] VITALS: BP 113/60
== END 2017-03-26 13:01 | disposition home or self-care (01) ==
LOC: ER 11:04
DX: F03.90 Unspecified dementia, unspecified severity, without behavioral disturbance, psychotic disturbance, mood disturbance, and anxiety (principal); Z66 Do not resuscitate; R19.7 Diarrhea, unspecified; I25.10 Atherosclerotic heart disease of native coronary artery without angina pectoris; I25.2 Old myocardial infarction; I10 Essential (primary) hypertension; E11.9 Type 2 diabetes mellitus without complications; Z85.118 Personal history of other malignant neoplasm of bronchus and lung; Z95.1 Presence of aortocoronary bypass graft
CPT/HCPCS: 99285

== ENCOUNTER 2017-07-19 19:36 | Emergency (ER) | payer MEDICARE, BC ==
[2017-07-19 20:50] LABS: ABSOLUTE LYMPHOCYTES (AUTO) 0.6 10^3/uL (0.5-4.7); ABSOLUTE MONOCYTES (AUTO) 0.4 10^3/uL (0.1-1.4); ABSOLUTE NEUT (AUTO) 7.6 10^3/uL (1.7-8.2); BASOPHILS % (AUTO) 0.2 % (0-2); EOSINOPHILS % (AUTO) 0.2 % (0-6); HEMOGLOBIN 13.5 g/dL (13.5-17.0); LYMPHOCYTES % (AUTO) 6.6 % (13-45); MEAN CORPUSCULAR HEMOGLOBIN 33.4 pg (27.0-33.4); MEAN CORPUSCULAR HGB CONC 34.6 g/dL (32.0-36.0); MEAN CORPUSCULAR VOLUME 97 fl (80-97); MONOCYTES % (AUTO) 4.6 % (3-13); PLATELET COUNT 160 10^3/uL (150-450); RED BLOOD COUNT 4.04 10^6/uL (4.35-5.55); RED CELL DISTRIBUTION WIDTH 13.4 % (11.5-14.0); SEGMENTED NEUTROPHILS % (AUTO) 88.4 % (42-78); TOTAL CELLS COUNTED % (AUTO) 100 %; WHITE BLOOD COUNT 8.7 10^3/uL (4.0-10.5)
--- NOTE | 2017-07-19 21:17 | ER Document Report ---
ED General - General Chief Complaint: Constipation Stated Complaint: ABDOMINAL PAIN Time Seen by Provider: 07/19/17 20:07 Cannot obtain history due to: Dementia Notes: Patient is a 81-year-old male who presents from a nursing facility with concerns of him having apparently report abdominal pain. He has also had very few bowel movements in the last 2 days. Patient himself is profoundly demented. However he denies any symptoms at time of my assessment. TRAVEL OUTSIDE OF THE [place] IN LAST 30 DAYS: No - Related Data Allergies/Adverse Reactions: No Known Allergies Allergy (Verified 12/08/13 12:43) Past Medical History - General Information source: Patient, Transfer Record Cannot obtain history due to: Dementia - Social History Smoking Status: Unknown if Ever Smoked Lives with: Correction Family History: None, Reviewed & Not Pertinent Patient has suicidal ideation: No Patient has homicidal ideation: No - Past Medical History Cardiac Medical History: Reports: Hx Coronary Artery Disease, Hx Heart Attack, Hx Hypercholesterolemia, Hx Hypertension Endocrine Medical History: Reports: Hx Diabetes Mellitus Type 2 Renal/ Medical History: Denies: Hx Peritoneal Dialysis Malignancy Medical History: Denies Hx Lung Cancer GI Medical History: Denies: Hx Pancreatitis Musculoskeltal Medical History: Denies Hx Multiple Sclerosis Psychiatric Medical History: Denies: Hx Dementia Past Surgical History: Reports: Hx Cardiac Surgery - bypass x' s 5, Hx Coronary Artery Bypass Graft. Denies: Hx Colostomy, Hx Pacemaker - Immunizations Hx Diphtheria, Pertussis, Tetanus Vaccination: Yes - unsure Hx Pneumococcal Vaccination: 06/30/11 Review of Systems - Review of Systems Notes: Constitutional: Negative for fever. HENT: Negative for sore throat. Eyes: Negative for visual changes. Cardiovascular: Negative for chest pain. Respiratory: Negative for shortness of breath. Gastrointestinal: Negative for abdominal pain, vomiting or diarrhea. Genitourinary: Negative for dysuria. Musculoskeletal: Negative for back pain. Skin: Negative for rash. Neurological: Negative for headaches, weakness or numbness. 10 point ROS negative except as marked above and in HPI. Physical Exam - Vital signs Vitals: Temp 98.3 F 07/19/17 19:53 Interpretation: Normal Notes: PHYSICAL EXAMINATION: GENERAL: Well-appearing, well-nourished and in no acute distress. HEAD: Atraumatic, normocephalic. EYES: Pupils equal round and reactive to light, extraocular movements intact, sclera anicteric, conjunctiva are normal. ENT: nares patent, oropharynx clear without exudates. Moist mucous membranes. NECK: Normal range of motion, supple without lymphadenopathy LUNGS: Breath sounds clear to auscultation bilaterally and equal. No wheezes rales or rhonchi. HEART: Regular rate and rhythm without murmurs ABDOMEN: Soft, nontender, normoactive bowel sounds. No guarding, no rebound. No masses appreciated. EXTREMITIES: Normal range of motion, no pitting or edema. No cyanosis. NEUROLOGICAL: No focal neurological deficits. Moves all extremities spontaneously and on command. PSYCH: Oriented only to person SKIN: Warm, Dry, normal turgor, no rashes or lesions noted. Course - Re-evaluation Re-evalutation: 07/19/17 21:15 Patient is a well-appearing elderly man in no acute distress without any complaints. Reportedly he has had infrequent bowel movements at the nursing facility and was complaining of right-sided abdominal pain today. When I speak to the patient he denies any complaints whatsoever. He has no pain on examination. He states he does not know why he is here in the emergency department. His vitals within normal limits. He has tolerated oral intake without difficulty. Basic labs unremarkable. Two-view the abdomen does not show any evidence of perforation or obstruction. Heavy colonic stool burden which I anticipate is the likely source of patient's abdominal pain. However, again at this time the patient denies any pain at all. Will discharge back to the nursing facility with return precautions - Vital Signs Vital signs: Temp Pulse Resp BP Pulse Ox 98.3 F 15 114/56 L 96 07/19/17 19:53 07/20/17 01:01 07/20/17 01:01 07/20/17 01:01 - Laboratory Result Diagrams: 07/19/17 20:35 07/19/17 20:35 Laboratory results interpreted by me: 07/19/17 07/19/17 20:35 20:35 RBC 4.04 L Seg Neutrophils % 88.4 H Lymphocytes % 6.6 L Sodium 136.4 L Glucose 129 H Discharge - Discharge Clinical Impression: No complaint of pain Constipation Qualifiers: Constipation type: unspecified constipation type Qualified Code(s): K59.00 - Constipation, unspecified Dementia Qualifiers: Dementia type: unspecified type Dementia behavioral disturbance: without behavioral disturbance Qualified Code(s): F03.90 - Unspecified dementia without behavioral disturbance Condition: Good Disposition: HOME, SELF-CARE Additional Instructions: You have been seen in the Emergency Department (ED) for abdominal pain. Your evaluation did not identify a clear cause of your symptoms but was generally reassuring. Please follow up with your doctor as soon as possible regarding today's emergent visit and the symptoms that are bothering you. Return to the ED if your abdominal pain worsens or fails to improve, you develop bloody vomiting, bloody diarrhea, you are unable to tolerate fluids due to vomiting, fever greater than 101, or other symptoms that concern you.
[2017-07-19 21:25] LABS: ALANINE AMINOTRANSFERASE 25 U/L (21-72); ALBUMIN 4.2 g/dL (3.5-5.0); ALKALINE PHOSPHATASE 66 U/L (38-126); ANION GAP 10 (5-19); ASPARTATE AMINO TRANSFERASE 23 U/L (17-59); BILIRUBIN,DIRECT 0.2 mg/dL (0.0-0.4); BILIRUBIN,TOTAL 0.4 mg/dL (0.2-1.3); BLOOD UREA NITROGEN 12 mg/dL (7-20); CALCIUM 9.7 mg/dL (8.4-10.2); CARBON DIOXIDE 26 mmol/L (22-30); CHLORIDE 100 mmol/L (98-107); GLUCOSE 129 mg/dL (75-110); POTASSIUM 3.7 mmol/L (3.6-5.0); SODIUM 136.4 mmol/L (137-145); TOTAL PROTEIN 6.6 g/dL (6.3-8.2)
--- NOTE | 2017-07-19 22:05 | RADIOLOGY REPORT (SQ) ---
EXAM DESCRIPTION: ABDOMEN 2 VIEWS COMPLETED DATE/TIME: 07/19/2017 9:43 pm REASON FOR STUDY: abdominal pain COMPARISON: CT abdomen 10/29/2016 NUMBER OF VIEWS: Two views. TECHNIQUE: Supine and erect/decubitus radiographic images of the abdomen acquired. LIMITATIONS: None. FINDINGS: FREE AIR: None. No abnormal gas collections. LUNG BASES: Clear. Incidental note is made of a hiatal hernia. BOWEL GAS PATTERN: Nonobstructive pattern. No dilated loops or air fluid levels. CALCIFICATIONS: No suspicious calcifications. SOFT TISSUES: No gross mass or suggestion of organomegaly. HARDWARE: None in the abdomen. BONES: Scoliotic curvature of the thoracolumbar spine with associated degenerative changes. OTHER: No other significant finding. IMPRESSION: NO RADIOGRAPHIC EVIDENCE FOR ACUTE ABDOMINAL DISEASE. Incidental note is made of a hiat al hernia. TECHNICAL DOCUMENTATION: JOB ID: [id number] [employer]- All Rights Reserved
[2017-07-20 07:11] VITALS: BP 133/68
== END 2017-07-20 07:20 | disposition home or self-care (01) ==
LOC: ER 19:36
DX: K59.00 Constipation, unspecified (principal); F03.90 Unspecified dementia, unspecified severity, without behavioral disturbance, psychotic disturbance, mood disturbance, and anxiety; R10.9 Unspecified abdominal pain; I25.10 Atherosclerotic heart disease of native coronary artery without angina pectoris; E78.00 Pure hypercholesterolemia, unspecified; I10 Essential (primary) hypertension; E11.9 Type 2 diabetes mellitus without complications; I25.2 Old myocardial infarction; Z95.1 Presence of aortocoronary bypass graft
CPT/HCPCS: 36415; 74019; 80053; 83690; 85025; 99284

== ENCOUNTER 2018-06-23 15:22 | Inpatient (IN) | payer MEDICARE, BC ==
[2018-06-23] MEDS ORDERED: ACETAMINOPHEN 325 MG TABLET PO ONE (15:37)
[2018-06-23] MEDS ORDERED: NORMAL SALINE 500 ML IV ONE (15:37)
[2018-06-23 15:44] LABS: ABSOLUTE LYMPHOCYTES (AUTO) 0.7 10^3/uL (0.5-4.7); ABSOLUTE MONOCYTES (AUTO) 0.9 10^3/uL (0.1-1.4); ABSOLUTE NEUT (AUTO) 7.6 10^3/uL (1.7-8.2); BASOPHILS % (AUTO) 0.4 % (0-2); EOSINOPHILS % (AUTO) 0.3 % (0-6); HEMATOCRIT 36.3 % (37.9-51.0); HEMOGLOBIN 12.8 g/dL (13.5-17.0); LYMPHOCYTES % (AUTO) 7.2 % (13-45); MEAN CORPUSCULAR HEMOGLOBIN 33.6 pg (27.0-33.4); MEAN CORPUSCULAR HGB CONC 35.4 g/dL (32.0-36.0); MEAN CORPUSCULAR VOLUME 95 fl (80-97); MONOCYTES % (AUTO) 9.8 % (3-13); PLATELET COUNT 172 10^3/uL (150-450); RED BLOOD COUNT 3.82 10^6/uL (4.35-5.55); RED CELL DISTRIBUTION WIDTH 14.2 % (11.5-14.0); SEGMENTED NEUTROPHILS % (AUTO) 82.3 % (42-78); TOTAL CELLS COUNTED % (AUTO) 100 %; WHITE BLOOD COUNT 9.3 10^3/uL (4.0-10.5)
--- NOTE | 2018-06-23 15:44 | ER Document Report ---
ED General - General Chief Complaint: Altered Mental Status Stated Complaint: ALTERED MENTAL STATUS Time Seen by Provider: 06/23/18 15:25 Mode of Arrival: Ambulatory Information source: Patient, [facility] Records, Outside Facility Records Cannot obtain history due to: Dementia Notes: 82-year-old male with hypertension, hyperlipidemia, type 2 diabetes, coronary artery disease who is a DNR presents from the [facility] ([facility]) facility with complaint from the staff of "not acting right". EMS reports that no one could actually tell them what the change in behavior was. Patient is awake and AO x2. Patient denies headache, nausea, vomiting, chest pain, short ness of breath, abdominal pain. When asked he states that he is not sure why he is here. We did attempt to contact his responsible libertarian Andriy Abebe at phone #[phone]. TRAVEL OUTSIDE OF THE [place] IN LAST 30 DAYS: No - HPI Onset: Just prior to arrival Associated symptoms: denies: Chest pain, Headache, Nausea, Vomiting, Shortness of breath - Related Data Allergies/Adverse Reactions: No Known Allergies Allergy (Verified 12/08/13 12:43) Past Medical History - General Information source: [facility] Records, Outside Facility Records Cannot obtain history due to: Dementia - Social History Smoking Status: Unknown if Ever Smoked Lives with: Care Home Family History: None, Reviewed & Not Pertinent - Past Medical History Cardiac Medical History: Reports: Hx Coronary Artery Disease, Hx Heart Attack, Hx Hypercholesterolemia, Hx Hypertension Endocrine Medical History: Reports: Hx Diabetes Mellitus Type 2 Renal/ Medical History: Denies: Hx Peritoneal Dialysis Malignancy Medical History: Denies Hx Lung Cancer GI Medical History: Denies: Hx Pancreatitis Musculoskeletal Medical History: Denies Hx Multiple Sclerosis Psychiatric Medical History: Denies: Hx Dementia Past Surgical History: Reports: Hx Cardiac Surgery - bypass x' s 5, Hx Coronary Artery Bypass Graft. Denies: Hx Colostomy, Hx Pacemaker - Immunizations Hx Diphtheria, Pertussis, Tetanus Vaccination: Yes - unsure Hx Pneumococcal Vaccination: 06/30/11 Review of Systems - Review of Systems -: Yes ROS unobtainable due to patient's medical condition Physical Exam - Vital signs Vitals: Resp BP Pulse Ox 21 H 138/70 H 94 06/23/18 15:33 06/23/18 15:33 06/23/18 15:33 - Notes Notes: PHYSICAL EXAMINATION: GENERAL: Well-appearing, well-nourished and in no acute distress. HEAD: Atraumatic, normocephalic. EYES: Pupils equal round and reactive to light, extraocular movements intact, sclera anicteric, conjunctiva are normal. ENT: Nares patent, oropharynx clear without exudates. Moist mucous membranes. NECK: Normal range of motion, supple without lymphadenopathy LUNGS: Breath sounds clear to auscultation bilaterally and equal. No wheezes r ales or rhonchi. HEART: Tachycardic, regular rhythm without murmurs ABDOMEN: Soft, nontender, nondistended abdomen. No guarding, no rebound. No masses appreciated. Musculoskeletal: Normal range of motion, no pitting or edema. No cyanosis. NEUROLOGICAL: Cranial nerves grossly intact. Normal speech, Normal sensory, motor exams PSYCH: Normal mood, normal affect. SKIN: Warm, Dry, normal turgor, no rashes or lesions noted. Course - Re-evaluation Re-evalutation: Laboratory 06/23/18 06/23/18 06/23/18 15:21 15:21 15:21 WBC 9.3 RBC 3.82 L Hgb 12.8 L Hct 36.3 L MCV 95 MCH 33.6 H MCHC 35.4 RDW 14.2 H Plt Count 172 Seg Neutrophils % 82.3 H Lymphocytes % 7.2 L Monocytes % 9.8 Eosinophils % 0.3 Basophils % 0.4 Absolute Neutrophils 7.6 Absolute Lymphocytes 0.7 Absolute Monocytes 0.9 Absolute Eosinophils 0.0 Absolute Basophils 0.0 Sodium 131.7 L Potassium 4.3 Chloride 95 L Carbon Dioxide 26 Anion Gap 11 BUN 11 Creatinine 0.94 Est GFR ( Amer) > 60 Est GFR (Non-Af Amer) > 60 Glucose 117 H Lactic Acid Calcium 9.0 Total Bilirubin 0.7 Direct Bilirubin 0.2 Neonat Total Bilirubin Not Reportable Neonat Direct Bilirubin Not Reportable Neonat Indirect Bili Not Reportable AST 39 ALT 27 Alkaline Phosphatase 76 Troponin I < 0.012 NT-Pro-B Natriuret Pep Total Protein 6.5 Albumin 4.0 Lipase 150.1 Urine Color Urine Appearance Urine pH Ur Specific [place] Urine Protein Urine Glucose (UA) Urine Ketones Urine Blood Urine Nitrite Urine Bilirubin Urine Urobilinogen Ur Leukocyte Esterase Urine WBC (Auto) Urine RBC (Auto) Urine Mucus (Auto) Urine Ascorbic Acid Stool Occult Blood Influenza A (Rapid) Influenza B (Rapid) 06/23/18 06/23/18 06/23/18 15:21 15:24 15:43 WBC RBC Hgb Hct MCV MCH MCHC RDW Plt Count Seg Neutrophils % Lymphocytes % Monocytes % Eosinophils % Basophils % Absolute Neutrophils Absolute Lymphocytes Absolute Monocytes Absolute Eosinophils Absolute Basophils Sodium Potassium Chloride Carbon Dioxide Anion Gap BUN Creatinine Est GFR ( Amer) Est GFR (Non-Af Amer) Glucose Lactic Acid 1.3 Calcium Total Bilirubin Direct Bilirubin Neonat Total Bilirubin Neonat Direct Bilirubin Neonat Indirect Bili AST ALT Alkaline Phosphatase Troponin I NT-Pro-B Natriuret Pep 604 H Total Protein Albumin Lipase Urine Color Urine Appearance Urine pH Ur Specific [place] Urine Protein Urine Glucose (UA) Urine Ketones Urine Blood Urine Nitrite Urine Bilirubin Urine Urobilinogen Ur Leukocyte Esterase Urine WBC (Auto) Urine RBC (Auto) Urine Mucus (Auto) Urine Ascorbic Acid Stool Occult Blood NEGATIVE Influenza A (Rapid) Influenza B (Rapid) 06/23/18 06/23/18 15:54 17:52 WBC RBC Hgb Hct MCV MCH MCHC RDW Plt Count Seg Neutrophils % Lymphocytes % Monocytes % Eosinophils % Basophils % Absolute Neutrophils Absolute Lymphocytes Absolute Monocytes Absolute Eosinophils Absolute Basophils Sodium Potassium Chloride Carbon Dioxide Anion Gap BUN Creatinine Est GFR ( Amer) Est GFR (Non-Af Amer) Glucose Lactic Acid Calcium Total Bilirubin Direct Bilirubin Neonat Total Bilirubin Neonat Direct Bilirubin Neonat Indirect Bili AST ALT Alkaline Phosphatase Troponin I NT-Pro-B Natriuret Pep Total Protein Albumin Lipase Urine Color YELLOW Urine Appearance CLEAR Urine pH 6.0 Ur Specific [place] 1.006 Urine Protein NEGATIVE Urine Glucose (UA) NEGATIVE Urine Ketones NEGATIVE Urine Blood SMALL H Urine Nitrite NEGATIVE Urine Bilirubin NEGATIVE Urine Urobilinogen NEGATIVE Ur Leukocyte Esterase NEGATIVE Urine WBC (Auto) 1 Urine RBC (Auto) 13 Urine Mucus (Auto) RARE Urine Ascorbic Acid NEGATIVE Stool Occult Blood Influenza A (Rapid) NEGATIVE Influenza B (Rapid) NEGATIVE Chest X-Ray 06/23/18 15:36 IMPRESSION: Borderline heart size with pulmonary vascular congestion possible minimal pulmonary edema. Cannot exclude left lower lobe pneumonia, but infil trate is not seen posteriorly on the lateral view. 06/23/18 15:46 82-year-old male presents from our [facility] facility with chief complaint of not acting right. Patient himself has no complaints. He was found to be febrile, tachycardic. Previous nursing notes and medical records reviewed. Patient does not appear toxic or dehydrated. He is in no acute distress. Patient is a DNR. 06/23/18 16:06 Patient attempted to get out of bed and pulled out his IV. 06/23/18 16:22 Attempted to contact patient's power of director dental services Andriy Abebe at phone #[phone] no message was left because mailbox was not set up. 06/23/18 18:08 Patient reevaluated again. He is no longer agitated after receiving 2 mg of IV Haldol. He did also receive ceftriaxone and doxycycline. 06/23/18 18:12 Patient remains febrile despite Tylenol, Toradol. He remains tachycardic and is now requiring 2 L of oxygen to maintain an O2 saturation above 92%. Patient does not use oxygen at home as far as I can tell by the nursing facility notes. Patient has been accepted by the hospitalist. 06/23/18 23:37 - Vital Signs Vital signs: Temp Pulse Resp BP Pulse Ox 102.8 F H 21 H 92/41 L 94 06/23/18 17:56 06/23/18 20:01 06/23/18 20:01 06/23/18 20:01 - Laboratory Result Diagrams: 06/23/18 15:21 06/23/18 15:21 Laboratory results interpreted by me: 06/23/18 06/23/18 06/23/18 15:21 15:21 15:21 RBC 3.82 L Hgb 12.8 L Hct 36.3 L MCH 33.6 H RDW 14.2 H Seg Neutrophils % 82.3 H Lymphocytes % 7.2 L Sodium 131.7 L Chloride 95 L Glucose 117 H NT-Pro-B Natriuret Pep 604 H Urine Blood 06/23/18 15:54 RBC Hgb Hct MCH RDW Seg Neutrophils % Lymphocytes % Sodium Chloride Glucose NT-Pro-B Natriuret Pep Urine Blood SMALL H - Diagnostic Test Radiology reviewed: Image reviewed, Reports reviewed Discharge - Discharge Clinical Impression: Healthcare-associated pneumonia, Hypoxia Dementia Qualifiers: Dementia type: Alzheimer's disease Alzheimer's disease onset: unspecified onset Dementia behavioral disturbance: with behavioral disturbance Qualified Code(s): G30.9 - Alzheimer's disease, unspecified; F02.81 - Dementia in other diseases classified elsewhere with behavioral disturbance Fever Qualifiers: Fever type: unspecified Qualified Code(s): R50.9 - Fever, unspecified Hypotension Qualifiers: Hypotension type: unspecified hypotension type Qualified Code(s): I95.9 - Hypotension, unspecified Condition: Good Disposition: ADMITTED INPATIENT Admitting Provider: Hospitalist Unit Admitted: Medical Floor
[2018-06-23] MEDS ORDERED: CEFTRIAXONE 1 GM/D5W RTU 1 GM/50 ML RTUPB IV ONE ×2 (15:47→16:49)
[2018-06-23 15:59] LABS: ALANINE AMINOTRANSFERASE 27 U/L (21-72); ALKALINE PHOSPHATASE 76 U/L (38-126); ANION GAP 11 (5-19); ASPARTATE AMINO TRANSFERASE 39 U/L (17-59); BILIRUBIN,DIRECT 0.2 mg/dL (0.0-0.4); BILIRUBIN,TOTAL 0.7 mg/dL (0.2-1.3); BLOOD UREA NITROGEN 11 mg/dL (7-20); CARBON DIOXIDE 26 mmol/L (22-30); CHLORIDE 95 mmol/L (98-107); GLUCOSE 117 mg/dL (75-110); LIPASE 150.1 U/L (23-300); POTASSIUM 4.3 mmol/L (3.6-5.0); SODIUM 131.7 mmol/L (137-145); TOTAL PROTEIN 6.5 g/dL (6.3-8.2)
[2018-06-23 16:18] LABS: APPEARANCE,URINE CLEAR; BILIRUBIN,URINE NEGATIVE (NEGATIVE); COLOR,URINE YELLOW; GLUCOSE, URINE NEGATIVE (NEGATIVE); KETONES,URINE NEGATIVE (NEGATIVE); LEUKOCYTE ESTERASE,URINE NEGATIVE (NEGATIVE); NITRITE,URINE NEGATIVE (NEGATIVE); PROTEIN,URINE NEGATIVE (NEGATIVE); URINE SPECIFIC GRAVITY 1.006; UROBILINOGEN,URINE NEGATIVE mg/dL (<2.0)
--- NOTE | 2018-06-23 16:36 | RADIOLOGY REPORT (SQ) ---
EXAM DESCRIPTION: CHEST SINGLE VIEW COMPLETED DATE/TIME: 06/23/2018 4:23 pm REASON FOR STUDY: ams COMPARISON: 06/09/2012 EXAM PARAMETERS: NUMBER OF VIEWS: One view. TECHNIQUE: Single frontal radiographic view of the chest acquired. RADIATION DOSE: NA LIMITATIONS: None. FINDINGS: LUNGS AND PLEURA: There is retrocardiac opacification on the left. MEDIASTINUM AND HILAR STRUCTURES: No masses. Contour normal. HEART AND VASCULAR STRUCTURES: Heart size is borderline. Pulmonary vascular congestion. Cannot excl ude minimal pulmonary edema. BONES: No acute findings. HARDWARE: None in the chest. OTHER: No other significant finding. IMPRESSION: Borderline heart size with pulmonary vascular congestion possible minimal pulmonary tata a. Cannot exclude left lower lobe pneumonia, but infiltrate is not seen posteriorly on the lateral v iew. TECHNICAL DOCUMENTATION: JOB ID: [id number] [employer]- All Rights Reserved Reading location - IP/workstation name: [email or web address]
[2018-06-23] MEDS ORDERED: HALOPERIDOL LACTATE INJ 5 MG/1 ML VIAL IV ONE (16:41)
[2018-06-23] MEDS ORDERED: DOXYCYCLINE HYCLATE INJ 100 MG VIAL IV ONE (16:50)
[2018-06-23] MEDS ORDERED: KETOROLAC TROMETHAMINE INJ/PF 30 MG/1 ML SDV IV ONE (16:50)
[2018-06-23] MEDS ORDERED: VANCOMYCIN HCL INJ 1000 MG VIAL IV ONE (18:13)
[2018-06-23 18:18] LABS: A TYPE INFLUENZA AG NEGATIVE (NEGATIVE); B INFLUENZA AG NEGATIVE (NEGATIVE)
[2018-06-23] MEDS ORDERED: ACETAMINOPHEN 650 MG SUPP.RECT PR PRN (18:21)
[2018-06-23] MEDS ORDERED: ONDANSETRON HCL INJ/PF 4 MG/2 ML SDV IV PRN (18:21)
[2018-06-23] MEDS ORDERED: GLUCAGON,HUMAN RECOMB 1 MG INJ IM PRN (18:27)
[2018-06-23] MEDS ORDERED: DEXTROSE 40% GEL 15 GM TUBE PO PRN ×2 (18:27)
[2018-06-23] MEDS ORDERED: DEXTROSE 50%-WATER 25 GM/50 ML DISP.SYRIN IV PRN ×2 (18:27)
[2018-06-23] MEDS ORDERED: INSULIN LISPRO 100 UNIT/ML 3 ML VIAL SUBCUT PRN (18:27)
--- NOTE | 2018-06-23 18:41 | PDOC H&P ---
History of Present Illness Admission Date/PCP: 06/23/18 18:21 FREDI GARDINER, ARTEMIO-C History of Present Illness: RAMESH GUERRERO is a 82 year old male with past medical history of hypertension, hyperlipidemia, type 2 diabetes mellitus, coronary artery disease, and dementia brought with chief complaint of altered mental status. Since patient has underlying dementia and acutely agitated he is not source of history brief history is obtained from the ER attending note. Attending note patient brought from the [facility] (Alzheimer's related care) facility with complaint from the staff of "not acting right". EMS reported that no one could actually tell him what is a change in behavior was. His CT head is negative for acute intracranial process, his BUN is 604 and sodium of 131. His white cell count is within normal limits. His chest x-ray reported as borderline heart size with pulmonary vascular congestion possible minimal pulmonary edema. Cannot exclude left lower lobe pneumonia. Review of system and further detailed history could not be obtained. Past Medical History Cardiac Medical History: Reports: Coronary Artery Disease, Myocardial Infarction, Hyperlipidema, Hypertension Endocrine Medical History: Reports: Diabetes Mellitus Type 2 Malignancy Medical History: Denies: Lung Cancer Psychiatric Medical History: Denies: Dementia Past Surgical History Past Surgical History: Reports: Coronary Artery Bypass Graft Denies: Colostomy, Pacemaker Social History Lives with: [facility] Smoking Status: Unknown if Ever Smoked Hx Recreational Drug Use: No Hx Prescription Drug Abuse: No - Advance Directive Resuscitation Status: Do Not Resuscitate Family History Family History: None, Reviewed & Not Pertinent Parental Family History Reviewed: Yes Children Family History Reviewed: Yes Sibling(s) Family History Reviewed.: Yes Medication/Allergy Home Medications: Aspirin [Ecotrin 81 mg EC Tablet] 81 mg PO DAILY #0 tabec 11/05/16 Cefuroxime Axetil [Ceftin 500 mg Tablet] 500 mg PO BID #8 tablet 11/05/16 Cyanocobalamin (Vitamin B-12) [Vitamin B-12 1000 mcg Tablet] 1,000 mcg PO DAILY tablet 11/05/16 Docusate Sodium [Colace 100 mg Capsule] 100 mg PO BID capsule 11/05/16 Doxycycline Hyclate [Vibramycin 100 mg Tablet] 100 mg PO Q12 #8 tablet 11/05/16 Famotidine [Pepcid 20 mg Tablet] 20 mg PO Q12 tablet 11/05/16 Ferrous Sulfate [Feosol 325 mg Tablet] 325 mg PO BIDPCBS tablet 11/05/16 Finasteride [Proscar 5 mg Tablet] 5 mg PO DAILY tablet 11/05/16 Ipratropium/Albuterol Sulfate [Duoneb 3 ml Ampul] 3 ml NEB KRD0OPS vial.neb 11/05/16 Levalbuterol HCl [Xopenex Neb 1.25 mg/3 ml Ampul] 1.25 mg NEB RTQ2HP PRN vial.neb 11/05/16 Lorazepam [Ativan 1 mg Tablet] 0.5 mg PO Q6HP PRN #10 tablet 11/05/16 Lorazepam [Ativan 1 mg Tablet] 2 mg PO HSP PRN #20 tablet 11/05/16 Megestrol Acetate [Megace [place] 400 mg/10 ml Udcup] 400 mg PO DAILY udc 11/05/16 Metoprolol Succinate [Toprol Xl 50 mg Tab.sr] 50 mg PO Q12 tab.sr.24h 11/05/16 Multivitamins W-Iron [Flintstones Chewable Multivit W/Fe Tab] 2 tab PO DAILY tab.chew 11/05/16 Prednisone [Deltasone 20 mg Tablet] 20 mg PO TID tablet 11/05/16 Risperidone [Risperdal 1 mg Tablet] 1 mg PO Q8 #90 tablet 11/05/16 Tamsulosin HCl [Flomax 0.4 mg Cap.sr] 0.4 mg PO PCSUPPER cap.sr.24h 11/05/16 Tiotropium [place] [Spiriva Handihaler 5 Cap/Kit (18 Mcg/Cap)] 1 cap IH DAILY kit 11/05/16 Allergies/Adverse Reactions: No Known Allergies Allergy (Verified 12/08/13 12:43) Review of Systems ROS unobtainable: Due to mental status Physical Exam Vital Signs: Temp Pulse Resp BP Pulse Ox 102.8 F H 24 H 106/44 L 93 06/23/18 17:56 06/23/18 17:01 06/23/18 17:01 06/23/18 17:57 Intake & Output 06/22/18 06/23/18 06/24/18 06:59 06:59 06:59 Intake Total 600 Balance 600 Weight 76.5 kg General appearance: PRESENT: mild distress, other - Febrile to touch Head exam: PRESENT: atraumatic, normocephalic Eye exam: PRESENT: conjunctiva pink Mouth exam: PRESENT: moist Neck exam: ABSENT: carotid bruit, JVD, lymphadenopathy, thyromegaly Respiratory exam: PRESENT: crackles, rhonchi - Bibasilar Cardiovascular exam: PRESENT: RRR. ABSENT: diastolic murmur, rubs, systolic murmur GI/Abdominal exam: PRESENT: normal bowel sounds, soft. ABSENT: distended, guarding, mass, organolmegaly, rebound, tenderness Extremities exam: PRESENT: full ROM. ABSENT: calf tenderness, clubbing, pedal edema Results Laboratory Results: 06/23/18 15:21 06/23/18 15:21 06/23/18 06/23/18 06/23/18 15:21 15:21 15:24 WBC 9.3 RBC 3.82 L Hgb 12.8 L Hct 36.3 L MCV 95 MCH 33.6 H MCHC 35.4 RDW 14.2 H Plt Count 172 Seg Neutrophils % 82.3 H Lymphocytes % 7.2 L Monocytes % 9.8 Eosinophils % 0.3 Basophils % 0.4 Absolute Neutrophils 7.6 Absolute Lymphocytes 0.7 Absolute Monocytes 0.9 Absolute Eosinophils 0.0 Absolute Basophils 0.0 Sodium 131.7 L Potassium 4.3 Chloride 95 L Carbon Dioxide 26 Anion Gap 11 BUN 11 Creatinine 0.94 Est GFR ( Amer) > 60 Est GFR (Non-Af Amer) > 60 Glucose 117 H Lactic Acid Calcium 9.0 Total Bilirubin 0.7 AST 39 ALT 27 Alkaline Phosphatase 76 Total Protein 6.5 Albumin 4.0 Lipase 150.1 Urine Color Urine Appearance Urine pH Ur Specific [place] Urine Protein Urine Glucose (UA) Urine Ketones Urine Blood Urine Nitrite Ur Leukocyte Esterase Urine WBC (Auto) Urine RBC (Auto) Stool Occult Blood NEGATIVE 06/23/18 06/23/18 15:43 15:54 WBC RBC Hgb Hct MCV MCH MCHC RDW Plt Count Seg Neutrophils % Lymphocytes % Monocytes % Eosinophils % Basophils % Absolute Neutrophils Absolute Lymphocytes Absolute Monocytes Absolute Eosinophils Absolute Basophils Sodium Potassium Chloride Carbon Dioxide Anion Gap BUN Creatinine Est GFR ( Amer) Est GFR (Non-Af Amer) Glucose Lactic Acid 1.3 Calcium Total Bilirubin AST ALT Alkaline Phosphatase Total Protein Albumin Lipase Urine Color YELLOW Urine Appearance CLEAR Urine pH 6.0 Ur Specific [place] 1.006 Urine Protein NEGATIVE Urine Glucose (UA) NEGATIVE Urine Ketones NEGATIVE Urine Blood SMALL H Urine Nitrite NEGATIVE Ur Leukocyte Esterase NEGATIVE Urine WBC (Auto) 1 Urine RBC (Auto) 13 Stool Occult Blood 06/23/18 06/23/18 15:21 15:21 Troponin I < 0.012 NT-Pro-B Natriuret Pep 604 H Impressions: Chest X-Ray 06/23/18 15:36 IMPRESSION: Borderline heart size with pulmonary vascular congestion possible minimal pulmonary edema. Cannot exclude left lower lobe pneumonia, but infiltrate is not seen posteriorly on the lateral view. Assessment & Plan - Diagnosis (1) Left lower lobe pneumonia Is this a current diagnosis for this admission?: Yes Plan: Patient has been started on Levaquin. We will escalate his antibiotics based on his clinical progress and culture results. (2) Encephalopathy due to pneumonia Is this a current diagnosis for this admission?: Yes Plan: Patient has underlying dementia which is complicated by pneumonia. Hopefully patient will come to his baseline with the treatment of his pneumonia. (3) Hypertension Qualifiers: Hypertension type: essential hypertension Qualified Code(s): I10 - Essential (primary) hypertension Is this a current diagnosis for this admission?: Yes Plan: We will continue his home medication (4) Hyperlipidemia Qualifiers: Hyperlipidemia type: unspecified Qualified Code(s): E78.5 - Hyperlipidemia, unspecified Is this a current diagnosis for this admission?: Yes Plan: Continue home medication (5) Type 2 diabetes mellitus Is this a current diagnosis for this admission?: Yes Plan: Patient put on sliding scale and will continue his home medications. - Inpatient Certification Medical Necessity: Need Close Monitoring Due to Risk of Patient Decompensation, Need for IV Antibiotics
[2018-06-23] MEDS ORDERED: IPRATROPIUM/ALBUTEROL 0.5-2.5 MG/3 ML AMPUL NEB PRN (18:42)
[2018-06-23] MEDS ORDERED: FUROSEMIDE INJ/PF 40 MG/4 ML SDV IV ONE (18:50)
[2018-06-23] MEDS ORDERED: LEVOFLOXACIN 750 MG/D5W RTU 750 MG/150 ML RTUPB IV ONE ×2 (19:00→23:33)
[2018-06-23] MEDS: FAMOTIDINE 20 MG TABLET PO SCH (23:39)
--- NOTE | 2018-06-24 00:02 | EKG REPORT ---
SEVERITY:- ABNORMAL ECG - SINUS TACHYCARDIA PROBABLE LEFT ATRIAL ABNORMALITY BORDERLINE IVCD WITH LAD BORDERLINE T ABNORMALITIES, INFERIOR LEADS : Confirmed by: Mary Garza 24-Jun-2018 00:01:31
[2018-06-24] MEDS: ENOXAPARIN SODIUM INJ 40 MG/0.4 ML DISP.SYRIN SUBCUT SCH (09:01)
[2018-06-24] MEDS: FAMOTIDINE 20 MG TABLET PO SCH ×2 (09:01→21:17)
--- NOTE | 2018-06-24 16:55 | PDOC PROGRESS REPORT ---
Subjective Progress Note for:: 06/24/18 Subjective:: No adverse events overnight. No new complaints. He is ambulatory and talkative. No fevers. Vital signs been stable. No reports of any cough or shortness of breath. Reason For Visit: LEFT LOWER LOBE PNEUMONIA,ENCEPHALOPATHY Physical Exam Vital Signs: Temp Pulse Resp BP Pulse Ox 98.6 F 103 H 16 130/65 H 98 06/24/18 10:48 06/24/18 14:02 06/24/18 12:18 06/24/18 10:48 06/24/18 12:18 Intake & Output 06/23/18 06/24/18 06/25/18 06:59 06:59 06:59 Intake Total 750 452 Output Total 250 625 Balance 500 -173 Weight 72.1 kg General appearance: PRESENT: no acute distress, cooperative, disheveled Respiratory exam: PRESENT: clear to auscultation amarilis, symmetrical, unlabored. ABSENT: accessory muscle use, rales, rhonchi, tachypnea, wheezes Cardiovascular exam: PRESENT: RRR, +S1, +S2 Vascular exam: PRESENT: normal capillary refill GI/Abdominal exam: PRESENT: normal bowel sounds, soft. ABSENT: distended, guarding, rebound, tenderness Extremities exam: ABSENT: clubbing, pedal edema Musculoskeletal exam: PRESENT: ambulatory, normal inspection. ABSENT: deformity Neurological exam: PRESENT: alert, awake, oriented to person, normal gait. ABSENT: oriented to place, oriented to time, oriented to situation Skin exam: PRESENT: dry, warm Results Laboratory Results: 06/23/18 15:21 06/23/18 15:21 06/23/18 06/23/18 15:21 15:21 Troponin I < 0.012 NT-Pro-B Natriuret Pep 604 H Impressions: Chest X-Ray 06/23/18 15:36 IMPRESSION: Borderline heart size with pulmonary vascular congestion possible minimal pulmonary edema. Cannot exclude left lower lobe pneumonia, but infiltrate is not seen posteriorly on the lateral view. Assessment & Plan - Diagnosis (1) Dementia Qualifiers: Dementia type: Alzheimer's disease Alzheimer's disease onset: unspecified onset Dementia behavioral disturbance: with behavioral disturbance Qualified Code(s): G30.9 - Alzheimer's disease, unspecified; F02.81 - Dementia in other diseases classified elsewhere with behavioral disturbance Is this a current diagnosis for this admission?: Yes Plan: Apparently he was sent here because he was "not acting right." There was some thoughts that he may have had a pneumonia but he is not acting like a patient with pneumonia. He has had no cough, no fever, no shortness of breath. I am going to watch him overnight and if he has an uneventful night I am going to send him home in the morning. - Time Time Spent with patient: 15-24 minutes
[2018-06-24] MEDS ORDERED: LEVOFLOXACIN 750 MG/D5W RTU 750 MG/150 ML RTUPB IV SCH (18:00)
[2018-06-25] MEDS: ENOXAPARIN SODIUM INJ 40 MG/0.4 ML DISP.SYRIN SUBCUT SCH (09:09)
[2018-06-25] MEDS: FAMOTIDINE 20 MG TABLET PO SCH (09:55)
[2018-06-25 11:41] VITALS: BP 150/70
--- NOTE | 2018-06-25 12:32 | PDOC DISCHARGE SUMMARY ---
General - Admit/Disc Date/PCP Admission Date/Primary Care Provider: 06/23/18 18:21 ARTEMIO HOLBROOK-[place] Discharge Date: 06/25/18 - Discharge Diagnosis (1) Dementia Is this a current diagnosis for this admission?: Yes Summary: The patient was sent here for what was said to be a change in his mental status or "not acting right." His mental status has been the same for us since he has been here. There was a question initially of whether or not he had pneumonia, but he has not had any signs or symptoms of a pneumonia, and we have decided not to treat him for one since he is not manifesting any signs of infection. We have made no changes to his home medication list. - Additional Information Resuscitation Status: Do Not Resuscitate Discharge Diet: Cardiac Discharge Activity: Supervised Activity Home Medications: Aspirin [Aspirin 81 mg Chewable Tablet] 81 mg PO DAILY 06/24/18 Cyanocobalamin (Vitamin B-12) [Vitamin B-12 1000 mcg Tablet] 1,000 mcg PO DAILY 06/24/18 Docusate Sodium [Colace 100 mg Capsule] 100 mg PO BID 06/24/18 Famotidine [Pepcid 20 mg Tablet] 20 mg PO Q12 06/24/18 Ferrous Sulfate [Feosol 325 mg Tablet] 325 mg PO BID 06/24/18 Finasteride [Proscar 5 mg Tablet] 5 mg PO DAILY 06/24/18 Metoprolol Tartrate [Lopressor 50 mg Tablet] 50 mg PO Q12 06/24/18 Mirtazapine [Remeron 15 mg Tablet] 7.5 mg PO QHS 06/24/18 Multivitamin [Tab-A-Gerald (Multiple Vitamin) Tablet] 1 tab PO DAILY 06/24/18 Risperidone [Risperdal 0.25 mg Tablet] 0.25 mg PO QHS 06/24/18 Tamsulosin HCl [Flomax 0.4 mg Cap.sr] 0.4 mg PO QPM 06/24/18 Tiotropium [place] [Spiriva Handihaler 5 Cap/Kit (18 Mcg/Cap)] 1 puff IH DAILY 06/24/18 History of Present Illness History of Present Illness: RAMESH GUERRERO is a 82 year old male with past medical history of hypertension, hyperlipidemia, type 2 diabetes mellitus, coronary artery disease, and dementia brought with chief complaint of altered mental status. Since patient has underlying dementia and acutely agitated he is not source of history brief history is obtained from the ER attending note. Attending note patient brought from the [facility] (Alzheimer's related care) facility with complaint from the staff of "not acting right". EMS reported that no one could actually tell him what is a change in behavior was. His CT head is negative for acute intracranial proc ess, his sodium of 131. His white cell count is within normal limits. His chest x-ray reported as borderline heart size with pulmonary vascular congestion possible minimal pulmonary edema. Cannot exclude left lower lobe pneumonia. Review of system and further detailed history could not be obtained. Hospital Course Hospital Course: I have not given him any antibiotics in the last couple of days and he has been doing just fine. He has had no cough, fever, or shortness of breath. He is been eating and drinking without difficulty. He has been ambulating independently. He has been pleasant and fairly cooperative. We have not made any changes to his home medications. His labs and examination were reassuring and he was discharged back to his assisted living facility today in good condition. Physical Exam Vital Signs: Temp Pulse Resp BP Pulse Ox 98.2 F 83 17 150/70 H 100 06/25/18 11:03 06/25/18 11:33 06/25/18 11:33 06/25/18 11:03 06/25/18 11:03 Intake & Output 06/24/18 06/25/18 06/26/18 06:59 06:59 06:59 Intake Total 750 1188 Output Total 250 1375 Balance 500 -187 Weight 72.1 kg 72.1 kg General appearance: PRESENT: no acute distress, cooperative, disheveled Respiratory exam: PRESENT: clear to auscultation amarilis, symmetrical, unlabored. ABSENT: accessory muscle use, rales, rhonchi, tachypnea, wheezes Cardiovascular exam: PRESENT: RRR, +S1, +S2 Vascular exam: PRESENT: normal capillary refill GI/Abdominal exam: PRESENT: normal bowel sounds, soft. ABSENT: distended, guarding, rebound, tenderness Extremities exam: ABSENT: clubbing, pedal edema Musculoskeletal exam: PRESENT: ambulatory, normal inspection. ABSENT: deformity Neurological exam: PRESENT: alert, awake, oriented to person, normal gait. ABSENT: oriented to place, oriented to time, oriented to situation Skin exam: PRESENT: dry, warm Results Laboratory Results: 06/23/18 15:21 06/23/18 15:21 06/23/18 15:54 Catheterized Urine Urine Culture - Final NO GROWTH 2 DAYS 06/23/18 06/23/18 15:21 15:21 Troponin I < 0.012 NT-Pro-B Natriuret Pep 604 H Impressions: Chest X-Ray 06/23/18 15:36 IMPRESSION: Borderline heart size with pulmonary vascular congestion possible minimal pulmonary edema. Cannot exclude left lower lobe pneumonia, but infiltrate is not seen posteriorly on the lateral view. Qualifiers - * PATIENT BEING DISCHARGED WITH ANY OF THE FOLLOWING DIAGNOSIS: No
== END 2018-06-25 13:30 | disposition home health service (06) | DRG 57 ==
LOC: ER 15:22 → UNDOADMIN 18:21 → EH 18:21 → 3S 21:35
PROVIDERS: ADMIT Hospitalist; ATTEND Hospitalist
DX: G30.9 Alzheimer's disease, unspecified (principal); F02.81 Dementia in other diseases classified elsewhere, unspecified severity, with behavioral disturbance; J81.1 Chronic pulmonary edema; I95.9 Hypotension, unspecified; E11.9 Type 2 diabetes mellitus without complications; R50.9 Fever, unspecified; Z95.1 Presence of aortocoronary bypass graft; I10 Essential (primary) hypertension; E78.5 Hyperlipidemia, unspecified; I25.10 Atherosclerotic heart disease of native coronary artery without angina pectoris; Z66 Do not resuscitate; R00.0 Tachycardia, unspecified; R09.02 Hypoxemia; I25.2 Old myocardial infarction; Z95.0 Presence of cardiac pacemaker; Z79.82 Long term (current) use of aspirin
CPT/HCPCS: 36415; 51701; 71045; 80053; 81001; 82272; 82962; 83605; 83690; 83880; 84484; 85025; 87040; 87086; 87804; 93005; 93010; 96365; 96367; 96375; 99285; J0696; J1630; J1650; J1885; J1956; J3370; J3490; J7040

== ENCOUNTER 2018-12-06 13:43 | Emergency (ER) | payer MEDICARE, BC ==
--- NOTE | 2018-12-06 15:01 | RADIOLOGY REPORT (SQ) ---
EXAM DESCRIPTION: CHEST SINGLE VIEW COMPLETED DATE/TIME: 12/06/2018 2:49 pm REASON FOR STUDY: vomiting, difficulty swallowing COMPARISON: 06/23/2018 TECHNIQUE: Single frontal radiographic view of the chest acquired. NUMBER OF VIEWS: One view. LIMITATIONS: None. FINDINGS: LUNGS AND PLEURA: No pneumothorax. No consolidation or pleural effusion. Similar chronic interstitial markings-scarring. MEDIASTINUM AND HILAR STRUCTURES: Stable. Similar hiatus hernia. HEART AND VASCULAR STRUCTURES: Stable. BONES: No acute findings. HARDWARE: CABG. OTHER: No other significant finding. IMPRESSION: NO ACUTE FINDINGS. TECHNICAL DOCUMENTATION: JOB ID: [id number] [place]-72 2010 [employer]- All Rights Reserved Reading location - IP/workstation name: [email or web address]
--- NOTE | 2018-12-06 15:05 | RADIOLOGY REPORT (SQ) ---
EXAM DESCRIPTION: CT HEAD WITHOUT COMPLETED DATE/TIME: 12/06/2018 2:53 pm REASON FOR STUDY: vomiting, difficulty swallowing COMPARISON: 10/29/2016 TECHNIQUE: Axial images acquired through the brain without intravenous contrast. Images reviewed wi th bone, brain and subdural windows. Images stored on PACS. All CT scanners at this facility use dose modulation, iterative reconstruction, and/or weight based d osing when appropriate to reduce radiation dose to as low as reasonably achievable (ALARA). [facility]: Dose Right [facility]: CareDose [facility]: Dose Right [facility]: Teradose 4D [facility]: Smart [employer] RADIATION DOSE: CT Rad equipment meets quality standard of care and radiation dose reduction techniq ues were employed. CTDIvol: 53.2 mGy. DLP: 1396 mGy-cm.mGy. LIMITATIONS: None. FINDINGS: VENTRICLES: Prominent. CEREBRUM: No masses. No hemorrhage. No midline shift. Areas of low density in the white matter mos t likely due to chronic micro-vascular ischemic change. No evidence for acute infarction. CEREBELLUM: No masses. No hemorrhage. No alteration of density. No evidence for acute infarction. EXTRAAXIAL SPACES: Age-related involutional change. No fluid collections. No masses. ORBITS AND GLOBE: No intra- or extraconal masses. Normal contour of globe without masses. CALVARIUM: No fracture. PARANASAL SINUSES: No fluid or mucosal thickening. SOFT TISSUES: No mass or hematoma. OTHER: No other significant finding. IMPRESSION: CHRONIC CHANGES OF ATROPHY AND MICROVASCULAR ISCHEMIA. NO ACUTE PROCESS. EVIDENCE OF ACUTE STROKE: NO. TECHNICAL DOCUMENTATION: JOB ID: [id number] [place]-72 Quality ID # [id number]: Final reports with documentation of one or more dose reduction techniques (e.g., Au tomated exposure control, adjustment of the mA and/or kV according to patient size, use of iterative reconstruction technique) 2010 [employer]- All Rights Reserved Reading location - IP/workstation name: [email or web address]
[2018-12-06 15:58] LABS: ABSOLUTE EOSINOPHILS # (AUTO) 0.1 10^3/uL (0.0-0.6); ABSOLUTE MONOCYTES (AUTO) 0.4 10^3/uL (0.1-1.4); ABSOLUTE NEUT (AUTO) 1.7 10^3/uL (1.7-8.2); BASOPHILS % (AUTO) 0.9 % (0-2); EOSINOPHILS % (AUTO) 4.2 % (0-6); HEMATOCRIT 38.8 % (37.9-51.0); HEMOGLOBIN 13.6 g/dL (13.5-17.0); LYMPHOCYTES % (AUTO) 30.8 % (13-45); MEAN CORPUSCULAR HEMOGLOBIN 33.2 pg (27.0-33.4); MEAN CORPUSCULAR HGB CONC 35.1 g/dL (32.0-36.0); MEAN CORPUSCULAR VOLUME 95 fl (80-97); PLATELET COUNT 199 10^3/uL (150-450); RED CELL DISTRIBUTION WIDTH 13.5 % (11.5-14.0); SEGMENTED NEUTROPHILS % (AUTO) 52.1 % (42-78); TOTAL CELLS COUNTED % (AUTO) 100 %; WHITE BLOOD COUNT 3.3 10^3/uL (4.0-10.5)
[2018-12-06 16:16] LABS: ALANINE AMINOTRANSFERASE 23 U/L (21-72); ALBUMIN 4.6 g/dL (3.5-5.0); ALKALINE PHOSPHATASE 62 U/L (38-126); ANION GAP 12 (5-19); ASPARTATE AMINO TRANSFERASE 33 U/L (17-59); BILIRUBIN,DIRECT 0.4 mg/dL (0.0-0.4); BILIRUBIN,TOTAL 0.6 mg/dL (0.2-1.3); BLOOD UREA NITROGEN 14 mg/dL (7-20); CALCIUM 9.4 mg/dL (8.4-10.2); CARBON DIOXIDE 27 mmol/L (22-30); CHLORIDE 100 mmol/L (98-107); CREATINE KINASE 131 U/L (55-170); GLUCOSE 99 mg/dL (75-110); POTASSIUM 4.5 mmol/L (3.6-5.0); SODIUM 138.5 mmol/L (137-145); TOTAL PROTEIN 7.5 g/dL (6.3-8.2)
[2018-12-06 16:27] LABS: CREATINE KINASE MB 1.38 ng/mL (<4.55)
[2018-12-06 16:30] LABS: TROPONIN I < 0.012 ng/mL
--- NOTE | 2018-12-06 16:50 | ER Document Report ---
ED General - General Chief Complaint: Vomiting Stated Complaint: VOMITING Time Seen by Provider: 12/06/18 14:14 Primary Care Provider: FREDI GARDINER FNP-C [Primary Care Provider] - Follow up as needed TRAVEL OUTSIDE OF THE [place] IN LAST 30 DAYS: No - HPI Notes: Patient is an 83-year-old male with a history of Alzheimer's dementia and for evaluation of vomiting. Evidently has been vomiting after his meals for the last several days. Today he vomited twice, so the staff at [facility] sent him here for further evaluation. The patient states outright that he has not vomited at all. He denies any pain or complaints, states he wants to go home. - Related Data Allergies/Adverse Reactions: No Known Allergies Allergy (Verified 12/08/13 12:43) Past Medical History - General Information source: Outside Facility Records - Social History Smoking Status: Unknown if Ever Smoked Family History: Other - Unable to obtain - Past Medical History Cardiac Medical History: Reports: Hx Coronary Artery Disease, Hx Heart Attack, Hx Hypercholesterolemia, Hx Hypertension Endocrine Medical History: Reports: Hx Diabetes Mellitus Type 2 Renal/ Medical History: Denies: Hx Peritoneal Dialysis Malignancy Medical History: Denies Hx Lung Cancer GI Medical History: Denies: Hx Pancreatitis Musculoskeletal Medical History: Denies Hx Multiple Sclerosis Psychiatric Medical History: Reports: Hx Dementia Past Surgical History: Reports: Hx Cardiac Surgery - bypass x' s 5, Hx Coronary Artery Bypass Graft. Denies: Hx Colostomy, Hx Pacemaker - Immunizations Hx Diphtheria, Pertussis, Tetanus Vaccination: Yes - unsure Hx Pneumococcal Vaccination: 06/30/11 Review of Systems - Review of Systems -: Yes ROS unobtainable due to patient's medical condition - Advanced Alzheimer's disease Physical Exam - Vital signs Vitals: Pulse Ox 96 12/06/18 15:49 - Notes Notes: Patient is a pleasant 83-year-old male who appears his stated age in no acute distress. Vital signs reviewed, please refer to chart. Head is normocephalic, atraumatic. Pupils equal round, reactive to light. Neck is supple without meningismus. Heart is regular rate and rhythm. Lungs are clear to auscultation bilaterally. Abdomen is soft, nontender, normoactive bowel sounds throughout. Extremities without cyanosis, clubbing. Posterior calves are nontender. Peripheral pulses are equal. Skin is warm and dry. Patient is awake, alert. He is disoriented to person, place, and time. He is requiring constant redirection, trying to get out of the bed. He moves all 4 extremities spontaneously. No gross facial asymmetry. Reflexes are symmetrical. Course - Re-evaluation Re-evalutation: 12/06/18 16:51 Patient presents to the emergency department for evaluation. He had multiple episodes of emesis over the last several days per [facility] staff. The patient here denies any symptoms whatsoever. As he was unable to offer me any real history, I was inclined to evaluate for cardiac status, as well as for CT scan of the head, to rule out any sort of intracranial pressure increase it was causing his vomiting. His laboratory investigations and imaging are largely unremarkable. We will discharge the patient to home. He is to follow-up with primary care this week, return to the emergency department with worsening or new concerning symptoms of any sort. - Vital Signs Vital signs: Temp Pulse Resp BP Pulse Ox 96 12/06/18 15:49 - Laboratory Result Diagrams: 12/06/18 15:38 12/06/18 15:38 Laboratory results interpreted by me: 12/06/18 15:38 WBC 3.3 L RBC 4.10 L - Diagnostic Test Radiology reviewed: Reports reviewed Radiology results interpreted by me: 12/06/18 16:53 Chest X-Ray 12/06/18 14:19 IMPRESSION: NO ACUTE FINDINGS. Head CT 12/06/18 14:21 IMPRESSION: CHRONIC CHANGES OF ATROPHY AND MICROVASCULAR ISCHEMIA. NO ACUTE PROCESS. EVIDENCE OF ACUTE STROKE: NO. - EKG Interpretation by Me Additional EKG results interpreted by me: 12/06/18 16:53 Sinus mechanism with rate of 66 bpm. Left axis deviation. IVCD. No acute ST changes concerning for ischemia or infarction. No significant change when compared to prior study. Discharge - Discharge Clinical Impression: Vomiting Condition: Stable [facility] Instructions: Vomiting ([facility]) Additional Instructions: Follow-up with primary care this week. Return to the emergency department with worsening or new concerning symptoms. Referrals: FREDI GARDINER FNP-C [Primary Care Provider] - Follow up as needed
--- NOTE | 2018-12-06 17:05 | EKG REPORT ---
SEVERITY:- ABNORMAL ECG - SINUS RHYTHM NONSPECIFIC INTRAVENTRICULAR CONDUCTION DELAY LOW VOLTAGE IN FRONTAL LEADS : Confirmed by: Jose Jurado MD 06-Dec-2018 17:05:05
[2018-12-06 17:56] VITALS: BP 146/116
== END 2018-12-06 17:01 ==
LOC: ER 13:43
DX: R11.10 Vomiting, unspecified (principal); G30.9 Alzheimer's disease, unspecified; F02.80 Dementia in other diseases classified elsewhere, unspecified severity, without behavioral disturbance, psychotic disturbance, mood disturbance, and anxiety; I25.10 Atherosclerotic heart disease of native coronary artery without angina pectoris; I10 Essential (primary) hypertension; E11.9 Type 2 diabetes mellitus without complications; I45.9 Conduction disorder, unspecified; Z95.1 Presence of aortocoronary bypass graft
CPT/HCPCS: 36415; 70450; 71045; 80053; 82550; 82553; 84484; 85025; 93005; 93010; 99285

== ENCOUNTER 2019-06-16 16:57 | Inpatient (IN) | payer MEDICARE, BC ==
[2019-06-16] MEDS ORDERED: IPRATROPIUM/ALBUTEROL 0.5-2.5 MG/3 ML AMPUL NEB ONE (17:11)
[2019-06-16] MEDS ORDERED: NORMAL SALINE 1000 ML 1,000 ML IV ONE ×2 (17:12→18:38)
[2019-06-16] MEDS ORDERED: VANCOMYCIN HCL 0 MG in DEXTROSE 5%-WATER 250 ML IV NR (17:15)
--- NOTE | 2019-06-16 17:16 | ER Document Report ---
ED Respiratory Problem - General Chief Complaint: Respiratory Distress Stated Complaint: NAUSEA,VOMITING,RESPIRATORY DISTRESS Time Seen by Provider: 06/16/19 17:04 Mode of Arrival: Medic Information source: Patient, Emergency Med Personnel Cannot obtain history due to: Dementia, Unstable vital signs, Other - Increased work of breathing hypoxia/cpap present. Notes: Patient has been noted to be short of breath and more lethargic today than his baseline. Patient is in the Alzheimer's related care of [facility]. Patient reports that he has been coughing some mucus today. Denies any chest pain. Patient does have a history of COPD on Spiriva. TRAVEL OUTSIDE OF THE [place] IN LAST 30 DAYS: No - HPI Patient complains to provider of: COPD - Currently on Spiriva as noted in the MAR from the facility., Short of breath Onset: Other - Today Duration: Worse/persistent Initiating Event: Other - Unknown events that precipitated worsening respiratory distress today Severity: Severe - On EMS arrival patient was in severe distress with hypoxia sats in the 80s. Patient was placed on CPAP was given nebulized nebulized therapy including IM steroid, and IV fluids. Short of Breath: Severe Cough: Nonproductive EMS treatments: Bronchodilators, CPAP, Solumedrol Associated symptoms: Short of breath Similar symptoms previously: Yes - COPD - Related Data Allergies/Adverse Reactions: No Known Allergies Allergy (Verified 12/08/13 12:43) Past Medical History - General Information source: Transfer Record Cannot obtain history due to: Dementia - Patient is demented and unable to give any history and is much as his work of breathing at this time does not allow back., Unstable vital signs - Social History Smoking Status: Unknown if Ever Smoked Lives with: [facility] Family History: Other - Unable to obtain - Past Medical History Cardiac Medical History: Reports: Hx Coronary Artery Disease, Hx Heart Attack, Hx Hypercholesterolemia, Hx Hypertension Pulmonary Medical History: Reports: Hx COPD Neurological Medical History: Denies: Hx Parkinson's Disease Endocrine Medical History: Reports: Hx Diabetes Mellitus Type 2 Renal/ Medical History: Denies: Hx Peritoneal Dialysis Malignancy Medical History: Denies Hx Lung Cancer GI Medical History: Denies: Hx Pancreatitis Musculoskeletal Medical History: Denies Hx Multiple Sclerosis Psychiatric Medical History: Reports: Hx Dementia Past Surgical History: Reports: Hx Cardiac Surgery - bypass x' s 5, Hx Coronary Artery Bypass Graft. Denies: Hx Colostomy, Hx Pacemaker - Immunizations Hx Diphtheria, Pertussis, Tetanus Vaccination: Yes - unsure Hx Pneumococcal Vaccination: 06/30/11 Review of Systems - Review of Systems -: Yes ROS unobtainable due to patient's medical condition - Patient is in r espiratory distress and has dementia. Reviewed patient's re Physical Exam - Vital signs Vitals: Pulse Ox 88 L 06/16/19 17:05 Interpretation: Normal - Notes Notes: Patient presents via EMS with CPAP in place. Patient still tachypneic and hypoxic with pulse oximetry 89%. Patient appears confused and anxious. - General General appearance: Appears well, Alert, Anxious In distress: Severe Notes: Skin warm to touch - HEENT Head: Normocephalic - Respiratory distress requiring BiPAP and breathing treatments. IV magnesium ordered as well. Initial sats were in the 88% region. On the CPAP that was present on arrival., Atraumatic Eyes: Normal Pupils: PERRL Mouth/Lips: Normal Mucous membranes: Dry - Respiratory Respiratory status: No respiratory distress, Respiratory distress, Tachypnea Chest status: Nontender Breath sounds: Normal, Decreased air movement, Rhonchi, Wheezing Chest palpation: Normal - Cardiovascular Rhythm: Regular Heart sounds: Normal auscultation Murmur: No - Abdominal Inspection: Normal Distension: No distension Bowel sounds: Normal Tenderness: Nontender Organomegaly: No organomegaly - Back Back: Normal, Nontender - Extremities General upper extremity: Normal inspection, Nontender, Normal color, Normal ROM, Normal temperature General lower extremity: Normal inspection, Nontender, Normal color, Normal ROM, Normal temperature, Normal weight bearing. No: Zhanna's sign - Neurological Neuro grossly intact: Yes Cognition: Normal Orientation: AAOx4 Hubbard Coma Scale Eye Opening: Spontaneous Hubbard Coma Scale Verbal: Oriented Hubbard Coma Scale Motor: Obeys Commands Hubbard Coma Scale Total: 15 Speech: Normal Motor strength normal: LUE, RUE, LLE, RLE Sensory: Normal - Psychological Associated symptoms: Normal affect, Normal mood, Flat affect - Skin Skin Temperature: Warm Skin Moisture: Dry Skin Color: Normal Course - Vital Signs Vital signs: Temp Pulse Resp BP Pulse Ox 98.1 F 80 22 H 106/57 L 99 06/16/19 21:00 06/16/19 21:00 06/16/19 21:00 06/16/19 21:00 06/16/19 21:00 - Laboratory Result Diagrams: 06/16/19 17:08 06/16/19 17:08 Laboratory results interpreted by me: 06/16/19 06/16/19 06/16/19 17:08 17:08 17:08 RBC 4.32 L RDW 14.6 H Lymph % (Auto) 5.1 L Absolute Lymphs (auto) 0.4 L Seg Neutrophils % 89.4 H Carbonic Acid ABG pCO2 ABG pO2 ABG Total CO2 ABG O2 Saturation Glucose 148 H Lactic Acid (Sepsis) 3.3 H Acetaminophen < 10 L 06/16/19 18:01 RBC RDW Lymph % (Auto) Absolute Lymphs (auto) Seg Neutrophils % Carbonic Acid 1.00 L ABG pCO2 33.3 L ABG pO2 159.3 H ABG Total CO2 22.5 L ABG O2 Saturation 99.1 H Glucose Lactic Acid (Sepsis) Acetaminophen - Diagnostic Test Radiology reviewed: Image reviewed, Reports reviewed - EKG Interpretation by Me When compared to previous EKG there are: No significant change Additional EKG results interpreted by me: 06/16/19 19:31 EKG shows a sinus rhythm rate of 91 left atrial abnormality. Borderline interventricular conduction delay with LAD. And low voltage in the frontal leads. Critical Care Note - Critical Care Note Total time excluding time spent on procedures (mins): 49 - Hypoxia, acute bronchospasm, requiring BiPAP Discharge - Discharge Clinical Impression: Sepsis, Acute bronchitis with bronchospasm, Hypoxia, Pneumonia, Do not resuscitate Condition: Fair Disposition: ADMITTED INPATIENT Admitting Provider: Barry (Hospitalist) Unit Admitted: Telemetry
[2019-06-16] MEDS ORDERED: VANCOMYCIN HCL INJ 1000 MG VIAL IV ONE (17:34)
--- NOTE | 2019-06-16 17:37 | RADIOLOGY REPORT (SQ) ---
EXAM DESCRIPTION: CHEST SINGLE VIEW COMPLETED DATE/TIME: 06/16/2019 5:26 pm REASON FOR STUDY: Shortness of breath COMPARISON: Chest radiographs 12/06/2018 EXAM PARAMETERS: NUMBER OF VIEWS: Two views TECHNIQUE: Single frontal radiographic view of the chest acquired. RADIATION DOSE: NA LIMITATIONS: None. FINDINGS: LUNGS AND PLEURA: Normal lung volumes. Unchanged coarse bibasilar interstitial opacities. No new focal airspace consolidation. No pneumothorax or pleural effusion. MEDIASTINUM AND HILAR STRUCTURES: Unchanged cardiomediastinal contours with calcified aortic arch and hiatal hernia. HEART AND VASCULAR STRUCTURES: Postsurgical changes of CABG. Heart normal in size. Normal vasculatu re. BONES: No acute findings. HARDWARE: Median sternotomy wires. OTHER: No other significant finding. IMPRESSION: Unchanged coarse bibasilar interstitial opacities. No acute pulmonary findings. TECHNICAL DOCUMENTATION: JOB ID: [id number] [employer]- All Rights Reserved Reading location - IP/workstation name: [facility]--[email or web address]
[2019-06-16 17:42] LABS: ABSOLUTE LYMPHOCYTES (AUTO) 0.4 10^3/uL (0.5-4.7); ABSOLUTE MONOCYTES (AUTO) 0.4 10^3/uL (0.1-1.4); ABSOLUTE NEUT (AUTO) 6.4 10^3/uL (1.7-8.2); BASOPHILS % (AUTO) 0.1 % (0-2); HEMATOCRIT 41.2 % (37.9-51.0); HEMOGLOBIN 14.3 g/dL (13.5-17.0); LYMPHOCYTES % (AUTO) 5.1 % (13-45); MEAN CORPUSCULAR HEMOGLOBIN 33.1 pg (27.0-33.4); MEAN CORPUSCULAR HGB CONC 34.7 g/dL (32.0-36.0); MEAN CORPUSCULAR VOLUME 95 fl (80-97); MONOCYTES % (AUTO) 5.4 % (3-13); PLATELET COUNT 205 10^3/uL (150-450); RED BLOOD COUNT 4.32 10^6/uL (4.35-5.55); RED CELL DISTRIBUTION WIDTH 14.6 % (11.5-14.0); SEGMENTED NEUTROPHILS % (AUTO) 89.4 % (42-78); TOTAL CELLS COUNTED % (AUTO) 100 %; WHITE BLOOD COUNT 7.2 10^3/uL (4.0-10.5)
[2019-06-16 17:46] LABS: PROTHROMBIN TIME 14.2 SEC (11.4-15.4)
[2019-06-16] MEDS: MAGNESIUM SULFATE/D5W 1 GM/100 ML RTUPB IV SCH ×2 (17:46→18:21)
[2019-06-16 17:59] LABS: ALBUMIN 4.7 g/dL (3.5-5.0); ALKALINE PHOSPHATASE 83 U/L (38-126); ANION GAP 14 (5-19); ASPARTATE AMINO TRANSFERASE 29 U/L (17-59); BILIRUBIN,DIRECT 0.2 mg/dL (0.0-0.4); BILIRUBIN,TOTAL 0.8 mg/dL (0.2-1.3); BLOOD UREA NITROGEN 16 mg/dL (7-20); CALCIUM 9.8 mg/dL (8.4-10.2); CARBON DIOXIDE 23 mmol/L (22-30); CHLORIDE 101 mmol/L (98-107); GLUCOSE 148 mg/dL (75-110); POTASSIUM 4.2 mmol/L (3.6-5.0); TOTAL PROTEIN 7.8 g/dL (6.3-8.2)
[2019-06-16] MEDS ORDERED: PIPERACILLIN SODIUM/TAZOBACTAM 4.5 GM in NORMAL SALINE 100 ML IV SCH (18:00)
[2019-06-16 18:01] LABS: ACETAMINOPHEN < 10 ug/mL (10-30)
[2019-06-16 18:22] LABS: ARTERIAL BLOOD HCO3 21.5 mmol/L (20-24); ARTERIAL BLOOD O2 SATURATION 99.1 % (94-98); ARTERIAL BLOOD PCO2 33.3 mmHg (35-45); ARTERIAL BLOOD PH 7.43 (7.35-7.45); ARTERIAL BLOOD PO2 159.3 mmHg (80-100); ARTERIAL BLOOD TOTAL CO2 22.5 mmol/L (23-27)
[2019-06-16 18:27] LABS: ARTERIAL BLOOD FIO2 80%
[2019-06-16 18:45] LABS: APPEARANCE,URINE SLIGHTLY-CLOUDY; BILIRUBIN,URINE NEGATIVE (NEGATIVE); COLOR,URINE YELLOW; GLUCOSE, URINE NEGATIVE (NEGATIVE); KETONES,URINE NEGATIVE (NEGATIVE); PROTEIN,URINE NEGATIVE (NEGATIVE); URINE SPECIFIC GRAVITY 1.014; UROBILINOGEN,URINE NEGATIVE mg/dL (<2.0)
[2019-06-16] MEDS ORDERED: PIPERACILLIN/TAZOBACTAM 4.5 GM VIAL IV SCH (19:00)
[2019-06-16 19:04] LABS: A TYPE INFLUENZA AG NEGATIVE (NEGATIVE); B INFLUENZA AG NEGATIVE (NEGATIVE)
[2019-06-16] MEDS ORDERED: ACETAMINOPHEN 325 MG TABLET PO PRN (19:20)
[2019-06-16] MEDS ORDERED: IPRATROPIUM/ALBUTEROL 0.5-2.5 MG/3 ML AMPUL NEB PRN (19:20)
--- NOTE | 2019-06-16 21:48 | EKG REPORT ---
SEVERITY:- BORDERLINE ECG - SINUS RHYTHM PROBABLE LEFT ATRIAL ABNORMALITY BORDERLINE IVCD WITH LAD LOW VOLTAGE IN FRONTAL LEADS : Confirmed by: Mary Garza 16-Jun-2019 21:48:15
[2019-06-16] MEDS: FLUTICASONE NASAL SPRAY 50 MCG/SPRY 120 SPRAY/16 GM NASL SCH (22:31)
[2019-06-16] MEDS ORDERED: PIPERACILLIN/TAZOBACTAM 4.5 GM VIAL IV ONE (22:35)
[2019-06-16] MEDS: NORMAL SALINE 1000 ML 1,000 ML IV PRN (23:04)
[2019-06-16] MEDS: HEPARIN SOD (PORCINE) 5,000 UNIT/ML 1 ML VIAL SUBCUT SCH (23:05)
[2019-06-16] MEDS: PIPERACILLIN/TAZOBACTAM 4.5 GM VIAL IV SCH (23:05)
[2019-06-17] MEDS: IPRATROPIUM/ALBUTEROL 0.5-2.5 MG/3 ML AMPUL NEB SCH ×3 (00:31→15:57)
[2019-06-17] MEDS: PIPERACILLIN/TAZOBACTAM 4.5 GM VIAL IV SCH (03:25)
--- NOTE | 2019-06-17 04:39 | PDOC H&P ---
History of Present Illness Admission Date/PCP: 06/16/19 19:36 ARTEMIO HOLBROOK-C Patient complains of: Vomiting and shortness of breath History of Present Illness: RAMESH GUERRERO is a 83 year old male who is a resident of the [facility] and a history of dementia, coronary artery disease and diabetes. He presents after residential staff finds him with lethargy, shortness of breath, nonproductive cough and vomiting x1. In the emergency room he is febrile with hypoxia with pulse oximetry in the 80s. He is placed on CPAP received albuterol and antibiotics for suspected pneumonia. He is referred to the hospitalist for admission. Patient denies complaints but is clearly in shortness of breath with use of accessory muscles, retractions and tachypnea. Past Medical History Cardiac Medical History: Reports: Coronary Artery Disease, Myocardial Infarction, Hyperlipidema, Hypertension Pulmonary Medical History: Reports: Chronic Obstructive Pulmonary Disease (COPD) Endocrine Medical History: Reports: Diabetes Mellitus Type 2 Malignancy Medical History: Denies: Lung Cancer Psychiatric Medical History: Reports: Dementia Past Surgical History Past Surgical History: Reports: Coronary Artery Bypass Graft Denies: Colostomy, Pacemaker Social History Information Source: Emergency Med Personnel, [facility] Records Lives with: Snf Smoking Status: Unknown if Ever Smoked Hx Recreational Drug Use: No Hx Prescription Drug Abuse: No - Advance Directive Resuscitation Status: Do Not Resuscitate Family History Family History: Other - Unable to obtain Parental Family History Reviewed: Yes Children Family History Reviewed: Yes Sibling(s) Family History Reviewed.: Yes Medication/Allergy Home Medications: Aspirin [Aspirin 81 mg Chewable Tablet] 81 mg PO DAILY 06/24/18 Cyanocobalamin (Vitamin B-12) [Vitamin B-12 1000 mcg Tablet] 1,000 mcg PO DAILY 06/24/18 Docusate Sodium [Colace 100 mg Capsule] 100 mg PO BID 06/24/18 Famotidine [Pepcid 20 mg Tablet] 20 mg PO Q12 06/24/18 Ferrous Sulfate [Feosol 325 mg Tablet] 325 mg PO BID 06/24/18 Finasteride [Proscar 5 mg Tablet] 5 mg PO DAILY 06/24/18 Metoprolol Tartrate [Lopressor 50 mg Tablet] 50 mg PO Q12 06/24/18 Mirtazapine [Remeron 15 mg Tablet] 7.5 mg PO QHS 06/24/18 Multivitamin [Tab-A-Gerald (Multiple Vitamin) Tablet] 1 tab PO DAILY 06/24/18 Risperidone [Risperdal 0.25 mg Tablet] 0.25 mg PO QHS 06/24/18 Tamsulosin HCl [Flomax 0.4 mg Cap.sr] 0.4 mg PO QPM 06/24/18 Tiotropium [place] [Spiriva Handihaler 5 Cap/Kit (18 Mcg/Cap)] 1 puff IH DAILY 06/24/18 Allergies/Adverse Reactions: No Known Allergies Allergy (Verified 12/08/13 12:43) Review of Systems ROS unobtainable: Due to mental status Physical Exam Vital Signs: Temp Pulse Resp BP Pulse Ox 98.3 F 74 24 H 108/52 L 98 06/16/19 23:50 06/17/19 02:00 06/16/19 23:50 06/16/19 23:50 06/16/19 23:50 Intake & Output 06/15/19 06/16/19 06/17/19 11:59 11:59 11:59 Intake Total 2225 Output Total 0 Balance 2225 Weight 58.967 kg General appearance: PRESENT: cooperative, severe distress, well-developed, well-nourished Head exam: PRESENT: atraumatic, normocephalic Eye exam: PRESENT: conjunctiva pink, EOMI, PERRLA. ABSENT: scleral icterus Ear exam: PRESENT: normal external ear exam Mouth exam: PRESENT: moist, tongue midline Neck exam: ABSENT: carotid bruit, JVD, lymphadenopathy, thyromegaly Respiratory exam: PRESENT: accessory muscle use, prolonged expiratory phas, retraction, rhonchi, symmetrical Cardiovascular exam: PRESENT: RRR, tachycardia. ABSENT: diastolic murmur, rubs, systolic murmur Pulses: PRESENT: normal dorsalis pedis pul Vascular exam: PRESENT: normal capillary refill GI/Abdominal exam: PRESENT: normal bowel sounds, soft. ABSENT: distended, guarding, mass, organolmegaly, rebound, tenderness Rectal exam: PRESENT: deferred Extremities exam: PRESENT: full ROM. ABSENT: calf tenderness, clubbing, pedal edema Neurological exam: PRESENT: alert, awake, oriented to person, oriented to place, oriented to time, oriented to situation, CN II-XII grossly intact. ABSENT: motor sensory deficit Psychiatric exam: PRESENT: appropriate affect, normal mood. ABSENT: homicidal ideation, suicidal ideation Skin exam: PRESENT: dry, intact, warm. ABSENT: cyanosis, rash Results Laboratory Results: 06/16/19 17:08 06/16/19 17:08 06/16/19 06/16/19 06/16/19 17:08 17:08 17:08 WBC 7.2 RBC 4.32 L Hgb 14.3 Hct 41.2 MCV 95 MCH 33.1 MCHC 34.7 RDW 14.6 H Plt Count 205 Seg Neutrophils % 89.4 H Carbonic Acid HCO3/H2CO3 Ratio ABG pH ABG pCO2 ABG pO2 ABG HCO3 ABG O2 Saturation ABG Base Excess FiO2 Sodium 138.3 Potassium 4.2 Chloride 101 Carbon Dioxide 23 Anion Gap 14 BUN 16 Creatinine 1.00 Est GFR ( Amer) > 60 Glucose 148 H Calcium 9.8 Total Bilirubin 0.8 AST 29 Alkaline Phosphatase 83 Total Protein 7.8 Albumin 4.7 TSH 2.72 Urine Color Urine Appearance Urine pH Ur Specific Watson Urine Protein Urine Glucose (UA) Urine Ketones Urine Blood Urine RBC (Auto) 06/16/19 06/16/19 18:01 18:15 WBC RBC Hgb Hct MCV MCH MCHC RDW Plt Count Seg Neutrophils % Carbonic Acid 1.00 L HCO3/H2CO3 Ratio 21:1 ABG pH 7.43 ABG pCO2 33.3 L ABG pO2 159.3 H ABG HCO3 21.5 ABG O2 Saturation 99.1 H ABG Base Excess -2.0 FiO2 80% Sodium Potassium Chloride Carbon Dioxide Anion Gap BUN Creatinine Est GFR ( Amer) Glucose Calcium Total Bilirubin AST Alkaline Phosphatase Total Protein Albumin TSH Urine Color YELLOW Urine Appearance SLIGHTLY-CLOUDY Urine pH 6.0 Ur Specific [place] 1.014 Urine Protein NEGATIVE Urine Glucose (UA) NEGATIVE Urine Ketones NEGATIVE Urine Blood NEGATIVE Urine RBC (Auto) 5 Impressions: Chest X-Ray 06/16/19 17:06 IMPRESSION: Unchanged coarse bibasilar interstitial opacities. No acute pulmonary findings. Assessment and Plan - Diagnosis (1) Healthcare-associated pneumonia Is this a current diagnosis for this admission?: Yes Plan: Pneumonia care set deployed, follow-up CBC and blood culture (2) Acute encephalopathy Is this a current diagnosis for this admission?: Yes Plan: Secondary to #1, complicated by baseline dementia. Supportive care (3) Acute hypoxemic respiratory failure Is this a current diagnosis for this admission?: Yes Plan: Secondary to #1, supplemental oxygen, albuterol and Atrovent, incentive spirometry. (4) Dementia Is this a current diagnosis for this admission?: Yes Plan: Supportive care (5) Sepsis Is this a current diagnosis for this admission?: Yes Plan: IV fluid challenge, follow-up CBC and blood culture (6) Type 2 diabetes mellitus Is this a current diagnosis for this admission?: Yes Plan: Hold metformin, low-dose Lantus and Humalog sliding scale ordered. - Time Time Spent with patient: 25-34 minutes - Inpatient Certification Medical Necessity: Need Close Monitoring Due to Risk of Patient Decompensation
[2019-06-17] MEDS: NORMAL SALINE 1000 ML 1,000 ML IV PRN (06:26)
[2019-06-17] MEDS: HEPARIN SOD (PORCINE) 5,000 UNIT/ML 1 ML VIAL SUBCUT SCH ×3 (06:26→21:54)
[2019-06-17 07:06] LABS: MEAN CORPUSCULAR HEMOGLOBIN 33.4 pg (27.0-33.4); MEAN CORPUSCULAR VOLUME 96 fl (80-97); PLATELET COUNT 165 10^3/uL (150-450); RED BLOOD COUNT 3.67 10^6/uL (4.35-5.55); RED CELL DISTRIBUTION WIDTH 14.5 % (11.5-14.0); WHITE BLOOD COUNT 9.4 10^3/uL (4.0-10.5)
[2019-06-17 07:12] LABS: HEMOGLOBIN 12.2 g/dL (13.5-17.0)
[2019-06-17 07:28] LABS: ANION GAP 14 (5-19); BLOOD UREA NITROGEN 18 mg/dL (7-20); CARBON DIOXIDE 23 mmol/L (22-30); CHLORIDE 102 mmol/L (98-107); GLUCOSE 138 mg/dL (75-110); POTASSIUM 3.9 mmol/L (3.6-5.0)
[2019-06-17 07:29] LABS: ABSOLUTE LYMPHOCYTES# (MANUAL) 0.3 10^3/uL (0.5-4.7); ABSOLUTE MONOCYTES # (MANUAL) 0.5 10^3/uL (0.1-1.4); BASOPHILS % (MANUAL) 0 % (0-2); EOSINOPHILS % (MANUAL) 0 % (0-6); LYMPHOCYTES % (MANUAL) 3 % (13-45); MONOCYTES % (MANUAL) 5 % (3-13); SEGMENTED NEUTROPHILS % (MAN) 79 % (42-78); TOTAL CELLS COUNTED 100; TOXIC GRANULATION SLIGHT; TOXIC VACUOLATION PRESENT
[2019-06-17 07:30] LABS: BAND NEUTROPHILS % (MANUAL) 13 % (3-5); PLATELET COMMENT ADEQUATE; RBC MORPHOLOGY COMMENT NORMO-CYTIC/CHROMIC
[2019-06-17 08:52] LABS: PATH REVIEW PATHOLOGIST REVIEWED
[2019-06-17] MEDS: FLUTICASONE NASAL SPRAY 50 MCG/SPRY 120 SPRAY/16 GM NASL SCH ×2 (10:06→21:55)
[2019-06-17] MEDS: PIPERACILLIN SODIUM/TAZOBACTAM 4.5 GM in NORMAL SALINE 100 ML IV SCH ×3 (10:06→21:54)
--- NOTE | 2019-06-17 16:04 | PDOC PROGRESS REPORT ---
Subjective Progress Note for:: 06/17/19 Subjective:: Patient denies any shortness of breath or chest pain at the moment. However he appears to be disoriented and does not even know why he was here. Reason For Visit: COPD EXACERBATION PNEUMONIA Physical Exam Vital Signs: Temp Pulse Resp BP Pulse Ox 98.5 F 100 16 101/40 L 94 06/17/19 11:01 06/17/19 14:00 06/17/19 11:01 06/17/19 11:01 06/17/19 11:01 Intake & Output 06/16/19 06/17/19 06/18/19 06:59 06:59 06:59 Intake Total 3225 220 Output Total 450 350 Balance 2775 -130 Weight 70 kg General appearance: PRESENT: no acute distress, cooperative Neck exam: ABSENT: JVD Respiratory exam: PRESENT: symmetrical, unlabored. ABSENT: tachypnea, wheezes Cardiovascular exam: PRESENT: RRR, +S1, +S2. ABSENT: tachycardia GI/Abdominal exam: PRESENT: normal bowel sounds, soft. ABSENT: rebound, rigid, tenderness Neurological exam: PRESENT: alert, awake, oriented to person. ABSENT: oriented to place, oriented to time, oriented to situation Results Laboratory Results: 06/17/19 06:05 06/17/19 06:05 06/16/19 06/16/19 06/16/19 17:08 17:08 17:08 WBC 7.2 RBC 4.32 L Hgb 14.3 Hct 41.2 MCV 95 MCH 33.1 MCHC 34.7 RDW 14.6 H Plt Count 205 Seg Neutrophils % 89.4 H Carbonic Acid HCO3/H2CO3 Ratio ABG pH ABG pCO2 ABG pO2 ABG HCO3 ABG O2 Saturation ABG Base Excess FiO2 Sodium 138.3 Potassium 4.2 Chloride 101 Carbon Dioxide 23 Anion Gap 14 BUN 16 Creatinine 1.00 Est GFR ( Amer) > 60 Glucose 148 H Calcium 9.8 Total Bilirubin 0.8 AST 29 Alkaline Phosphatase 83 Total Protein 7.8 Albumin 4.7 TSH 2.72 Urine Color Urine Appearance Urine pH Ur Specific [place] Urine Protein Urine Glucose (UA) Urine Ketones Urine Blood Urine RBC (Auto) 06/16/19 06/16/19 06/17/19 18:01 18:15 06:05 WBC 9.4 RBC 3.67 L Hgb 12.2 L D Hct 35.0 L MCV 96 MCH 33.4 MCHC 35.0 RDW 14.5 H Plt Count 165 Seg Neutrophils % Not Reportable Carbonic Acid 1.00 L HCO3/H2CO3 Ratio 21:1 ABG pH 7.43 ABG pCO2 33.3 L ABG pO2 159.3 H ABG HCO3 21.5 ABG O2 Saturation 99.1 H ABG Base Excess -2.0 FiO2 80% Sodium Potassium Chloride Carbon Dioxide Anion Gap BUN Creatinine Est GFR ( Amer) Glucose Calcium Total Bilirubin AST Alkaline Phosphatase Total Protein Albumin TSH Urine Color YELLOW Urine Appearance SLIGHTLY-CLOUDY Urine pH 6.0 Ur Specific [place] 1.014 Urine Protein NEGATIVE Urine Glucose (UA) NEGATIVE Urine Ketones NEGATIVE Urine Blood NEGATIVE Urine RBC (Auto) 5 06/17/19 06:05 WBC RBC Hgb Hct MCV MCH MCHC RDW Plt Count Seg Neutrophils % Carbonic Acid HCO3/H2CO3 Ratio ABG pH ABG pCO2 ABG pO2 ABG HCO3 ABG O2 Saturation ABG Base Excess FiO2 Sodium 138.7 Potassium 3.9 Chloride 102 Carbon Dioxide 23 Anion Gap 14 BUN 18 Creatinine 0.94 Est GFR ( Amer) > 60 Glucose 138 H Calcium 9.0 Total Bilirubin AST Alkaline Phosphatase Total Protein Albumin TSH Urine Color Urine Appearance Urine pH Ur Specific [place] Urine Protein Urine Glucose (UA) Urine Ketones Urine Blood Urine RBC (Auto) Impressions: Chest X-Ray 06/16/19 17:06 IMPRESSION: Unchanged coarse bibasilar interstitial opacities. No acute pulmonary findings. Assessment and Plan - Diagnosis (1) Healthcare-associated pneumonia Is this a current diagnosis for this admission?: Yes Plan: Continue vancomycin and Zosyn Follow-up blood cultures Incentive spirometer (2) Acute encephalopathy Is this a current diagnosis for this admission?: Yes Plan: Secondary to #1, complicated by baseline dementia. Supportive care Currently patient is not so far removed from his baseline. (3) Acute hypoxemic respiratory failure Is this a current diagnosis for this admission?: Yes Plan: Secondary to #1, supplemental oxygen, albuterol and Atrovent, incentive spirometry. Currently resolved patient is tolerating room air. I will discontinue BiPAP. (4) Dementia Is this a current diagnosis for this admission?: Yes Plan: Supportive care (5) Sepsis Is this a current diagnosis for this admission?: Yes Plan: Evidenced by hypoxic respiratory failure, lactic acidosis, pneumonia Repeat lactic acid follow-up blood cultures Continue antibiotics (6) Type 2 diabetes mellitus Is this a current diagnosis for this admission?: Yes Plan: Documented history on admission After medical reconciliation was done, I do not see any listed anti-glycemic agents or insulin as patient's home medications. I will check hemoglobin A1c in the a.m. to confirm if patient is truly diabetic still. - Time Time Spent with patient: Less than 15 minutes
[2019-06-17] MEDS ORDERED: TAMSULOSIN HCL 0.4 MG CAP.SR.24H PO SCH (18:00)
[2019-06-17] MEDS ORDERED: VANCOMYCIN HCL 1,000 MG in DEXTROSE 5%-WATER 250 ML IV SCH (18:00)
[2019-06-17] MEDS ORDERED: NORMAL SALINE 1000 ML 1,000 ML IV ONE (18:22)
[2019-06-17] MEDS: FERROUS SULFATE 325 MG TABLET PO SCH (18:23)
[2019-06-17] MEDS: DOCUSATE SODIUM 100 MG CAPSULE PO SCH (18:24)
[2019-06-17] MEDS: RISPERIDONE 1 MG TABLET PO SCH (21:55)
[2019-06-17] MEDS: FAMOTIDINE 20 MG TABLET PO SCH (21:55)
[2019-06-17] MEDS: METOPROLOL TARTRATE 50 MG TABLET PO SCH (21:55)
[2019-06-17] MEDS ORDERED: MIRTAZAPINE 15 MG TABLET PO SCH (22:00)
[2019-06-17] MEDS ORDERED: (PENDING PHARMACY ID) (Risperidone [Risperdal] 0.5 MG) PO SCH (22:00)
[2019-06-18] MEDS: IPRATROPIUM/ALBUTEROL 0.5-2.5 MG/3 ML AMPUL NEB SCH ×3 (00:58→15:58)
[2019-06-18] MEDS: PIPERACILLIN SODIUM/TAZOBACTAM 4.5 GM in NORMAL SALINE 100 ML IV SCH ×2 (02:11→10:16)
[2019-06-18] MEDS: HEPARIN SOD (PORCINE) 5,000 UNIT/ML 1 ML VIAL SUBCUT SCH ×2 (05:06→15:54)
[2019-06-18 06:39] LABS: ABSOLUTE LYMPHOCYTES (AUTO) 0.5 10^3/uL (0.5-4.7); ABSOLUTE MONOCYTES (AUTO) 0.6 10^3/uL (0.1-1.4); ABSOLUTE NEUT (AUTO) 8.9 10^3/uL (1.7-8.2); BASOPHILS % (AUTO) 0.3 % (0-2); EOSINOPHILS % (AUTO) 0.1 % (0-6); HEMATOCRIT 31.3 % (37.9-51.0); LYMPHOCYTES % (AUTO) 5.4 % (13-45); MEAN CORPUSCULAR HEMOGLOBIN 33.5 pg (27.0-33.4); MEAN CORPUSCULAR HGB CONC 35.1 g/dL (32.0-36.0); MEAN CORPUSCULAR VOLUME 95 fl (80-97); MONOCYTES % (AUTO) 5.7 % (3-13); PLATELET COUNT 135 10^3/uL (150-450); RED BLOOD COUNT 3.28 10^6/uL (4.35-5.55); RED CELL DISTRIBUTION WIDTH 14.3 % (11.5-14.0); SEGMENTED NEUTROPHILS % (AUTO) 88.5 % (42-78); TOTAL CELLS COUNTED % (AUTO) 100 %
[2019-06-18 06:59] LABS: ANION GAP 6 (5-19); BLOOD UREA NITROGEN 17 mg/dL (7-20); CALCIUM 8.1 mg/dL (8.4-10.2); CARBON DIOXIDE 23 mmol/L (22-30); CHLORIDE 108 mmol/L (98-107); GLUCOSE 97 mg/dL (75-110); POTASSIUM 3.6 mmol/L (3.6-5.0)
[2019-06-18] MEDS ORDERED: UMECLIDINIUM BROMIDE 62.5 MCG/DOSE IH SCH (10:00)
[2019-06-18] MEDS ORDERED: (PENDING PHARMACY ID) (Tiotropium Bromide [Spiriva Handihaler 5 Cap/Kit (18 Mcg/Cap)] 1 PU IH SCH (10:00)
[2019-06-18] MEDS ORDERED: CYANOCOBALAMIN (VITAMIN B-12) 1,000 MCG TABLET PO SCH (10:00)
[2019-06-18] MEDS ORDERED: MULTIVITAMIN TABLET PO SCH (10:00)
[2019-06-18] MEDS ORDERED: FINASTERIDE 5 MG TABLET PO SCH (10:00)
[2019-06-18] MEDS ORDERED: ASPIRIN 81 MG TABLET, CHEWABLE PO SCH (10:00)
[2019-06-18] MEDS: FAMOTIDINE 20 MG TABLET PO SCH (10:12)
[2019-06-18] MEDS: DOCUSATE SODIUM 100 MG CAPSULE PO SCH (10:12)
[2019-06-18] MEDS: FLUTICASONE NASAL SPRAY 50 MCG/SPRY 120 SPRAY/16 GM NASL SCH (10:12)
[2019-06-18] MEDS: FERROUS SULFATE 325 MG TABLET PO SCH (10:13)
[2019-06-18] MEDS: METOPROLOL TARTRATE 50 MG TABLET PO SCH (10:14)
[2019-06-18] MEDS: RISPERIDONE 1 MG TABLET PO SCH (10:32)
--- NOTE | 2019-06-18 15:01 | PDOC TRANSFER SUMMARY ---
Impression - Admit/DC Date/PCP Admission Date/Primary Care Provider: 06/16/19 19:36 ARTEMIO HOLBROOK-[place] Discharge Date: 06/18/19 - Discharge Diagnosis (1) Healthcare-associated pneumonia Is this a current diagnosis for this admission?: Yes (2) Acute encephalopathy Is this a current diagnosis for this admission?: Yes (3) Acute hypoxemic respiratory failure Is this a current diagnosis for this admission?: Yes (4) Dementia Is this a current diagnosis for this admission?: Yes (5) Sepsis Is this a current diagnosis for this admission?: Yes - Assessment Summary: Patient was admitted for treatment of possible pneumonia. Some infiltrates were seen on his chest x-ray but nothing too overt. Blood cultures were obtained which have been negative about 2 days. Patient was started on IV antibiotics with vancomycin and Zosyn for treatment of healthcare associated pneumonia. Patient did have lactic acidosis and initially mildly hypoxic at 88% on room air. There was some concern for sepsis given this accompanied by his delirium. He was given IV antibiotics as well as IV hydration and he is lactic acidosis resolved. Patient has been off oxygen yesterday and today with his pulse oximetry maintaining in the mid 90s on room air. Patient's [place] was removed this well. Of note, patient did come in with a hemoglobin of 14 and his hemoglobin is currently 11. However this is likely dilutional and the initial reading was probably secondary to hemoconcentration from dehydration as several other components of his blood counts also dropped with IV fluids administration. There has been no evidence of bleeding neither superficially nor from his digestive tract throughout the stay in the hospital. I also checked a hemoglobin A1c which was 5.8 indicating the patient is not diabetic. Patient is being discharged on oral doxycycline 100 mg every 12 hours with the last dose to be given on 06/22/2019. I also recommend given his advanced dementia, patient will benefit from palliative care consultation at a facility to determine goals of care. - Additional Information Resuscitation Status: Do Not Resuscitate Referrals: [facility] [Outside] Home Medications: Aspirin [Aspirin 81 mg Chewable Tablet] 81 mg PO DAILY 06/24/18 Cyanocobalamin (Vitamin B-12) [Vitamin B-12 1000 mcg Tablet] 1,000 mcg PO DAILY 06/24/18 Docusate Sodium [Colace 100 mg Capsule] 100 mg PO BID 06/24/18 Famotidine [Pepcid 20 mg Tablet] 20 mg PO Q12 06/24/18 Ferrous Sulfate [Feosol 325 mg Tablet] 325 mg PO BID 06/24/18 Finasteride [Proscar 5 mg Tablet] 5 mg PO DAILY 06/24/18 Metoprolol Tartrate [Lopressor 50 mg Tablet] 50 mg PO Q12 06/24/18 Mirtazapine [Remeron 15 mg Tablet] 15 mg PO QHS 06/24/18 Multivitamin [Tab-A-Gerald (Multiple Vitamin) Tablet] 1 tab PO DAILY 06/24/18 Tamsulosin HCl [Flomax 0.4 mg Cap.sr] 0.4 mg PO QPM 06/24/18 Tiotropium [place] [Spiriva Handihaler 5 Cap/Kit (18 Mcg/Cap)] 1 puff IH DAILY 06/24/18 Risperidone [Risperdal] 0.5 mg PO Q12 06/17/19 Doxycycline Hyclate [Vibramycin 100 mg Tablet] 100 mg PO Q12 5 Days tablet 06/18/19 History of Present Illiness History of Present Illness: RAMESH GUERRERO is a 83 year old male who is a resident of the [facility] and a history of dementia, coronary artery disease and diabetes. He presents after [facility] staff finds him with lethargy, shortness of breath, nonproductive cough and vomiting x1. In the emergency room he is febrile with hypoxia with pulse oximetry in the 80s. He is placed on CPAP received albuterol and antibiotics for suspected pneumonia. He is referred to the hospitalist for admission. Patient denies complaints but is clearly in shortness of breath with use of accessory muscles, retractions and tachypnea. Physical Exam Vital Signs: Temp Pulse Resp BP Pulse Ox 98.9 F 85 20 118/53 L 97 06/18/19 11:03 06/18/19 11:03 06/18/19 11:03 06/18/19 11:03 06/18/19 11:03 Intake & Output 06/17/19 06/18/19 06/19/19 06:59 06:59 06:59 Intake Total 3225 3970 600 Output Total 450 1400 350 Balance 2775 2570 250 Weight 70 kg 74.2 kg 74.2 kg General appearance: PRESENT: no acute distress Neck exam: ABSENT: JVD Respiratory exam: PRESENT: clear to auscultation amarilis, symmetrical, unlabored. ABSENT: tachypnea, wheezes Cardiovascular exam: PRESENT: +S1, +S2. ABSENT: tachycardia GI/Abdominal exam: PRESENT: normal bowel sounds, soft. ABSENT: rebound, rigid, tenderness Neurological exam: PRESENT: alert, awake, oriented to person. ABSENT: oriented to place, oriented to time, oriented to situation Psychiatric exam: PRESENT: anxious Results Laboratory Results: WBC 10.0 10^3/uL (4.0-10.5) 06/18/19 06:08 RBC 3.28 10^6/uL (4.35-5.55) L 06/18/19 06:08 Hgb 11.0 g/dL (13.5-17.0) L 06/18/19 06:08 Hct 31.3 % (37.9-51.0) L 06/18/19 06:08 MCV 95 fl (80-97) 06/18/19 06:08 MCH 33.5 pg (27.0-33.4) H 06/18/19 06:08 MCHC 35.1 g/dL (32.0-36.0) 06/18/19 06:08 RDW 14.3 % (11.5-14.0) H 06/18/19 06:08 Plt Count 135 10^3/uL (150-450) L 06/18/19 06:08 Lymph % (Auto) 5.4 % (13-45) L 06/18/19 06:08 [place] % (Auto) 5.7 % (3-13) 06/18/19 06:08 Eos % (Auto) 0.1 % (0-6) 06/18/19 06:08 Baso % (Auto) 0.3 % (0-2) 06/18/19 06:08 Absolute Neuts (auto) 8.9 10^3/uL (1.7-8.2) H 06/18/19 06:08 Absolute Lymphs (auto) 0.5 10^3/uL (0.5-4.7) 06/18/19 06:08 Absolute Monos (auto) 0.6 10^3/uL (0.1-1.4) 06/18/19 06:08 Absolute Eos (auto) 0.0 10^3/uL (0.0-0.6) 06/18/19 06:08 Absolute Basos (auto) 0.0 10^3/uL (0.0-0.2) 06/18/19 06:08 Total Counted 100 06/17/19 06:05 Seg Neutrophils % 88.5 % (42-78) H 06/18/19 06:08 Seg Neuts % (Manual) 79 % (42-78) H 06/17/19 06:05 Band Neutrophils % 13 % (3-5) H 06/17/19 06:05 Lymphocytes % (Manual) 3 % (13-45) L 06/17/19 06:05 Monocytes % (Manual) 5 % (3-13) 06/17/19 06:05 Eosinophils % (Manual) 0 % (0-6) 06/17/19 06:05 Basophils % (Manual) 0 % (0-2) 06/17/19 06:05 Abs Neuts (Manual) 8.6 10^3/uL (1.7-8.2) H 06/17/19 06:05 Abs Lymphs (Manual) 0.3 10^3/uL (0.5-4.7) L 06/17/19 06:05 Abs Monocytes (Manual) 0.5 10^3/uL (0.1-1.4) 06/17/19 06:05 Absolute Eos (Manual) 0.0 10^3/uL (0.0-0.6) 06/17/19 06:05 Abs Basophils (Manual) 0.0 10^3/uL (0.0-0.2) 06/17/19 06:05 Toxic Granulation SLIGHT 06/17/19 06:05 Toxic Vacuolation PRESENT 06/17/19 06:05 Platelet Comment ADEQUATE 06/17/19 06:05 RBC Morph Comment NORMO-CYTIC/CHROMIC 06/17/19 06:05 PT 14.2 SEC (11.4-15.4) 06/16/19 17:08 INR 1.10 06/16/19 17:08 Carbonic Acid 1.00 mmol/L (1.05-1.35) L 06/16/19 18:01 HCO3/H2CO3 Ratio 21:1 06/16/19 18:01 ABG pH 7.43 (7.35-7.45) 06/16/19 18:01 ABG pCO2 33.3 mmHg (35-45) L 06/16/19 18:01 ABG pO2 159.3 mmHg (80-100) H 06/16/19 18:01 ABG HCO3 21.5 mmol/L (20-24) 06/16/19 18:01 ABG Total CO2 22.5 mmol/L (23-27) L 06/16/19 18:01 ABG O2 Saturation 99.1 % (94-98) H 06/16/19 18:01 ABG Base Excess -2.0 mmol/L 06/16/19 18:01 FiO2 80% 06/16/19 18:01 Sodium 137.0 mmol/L (137-145) 06/18/19 06:08 Potassium 3.6 mmol/L (3.6-5.0) 06/18/19 06:08 Chloride 108 mmol/L (98-107) H 06/18/19 06:08 Carbon Dioxide 23 mmol/L (22-30) 06/18/19 06:08 Anion Gap 6 (5-19) 06/18/19 06:08 BUN 17 mg/dL (7-20) 06/18/19 06:08 Creatinine 0.84 mg/dL (0.52-1.25) 06/18/19 06:08 Est GFR ( Amer) > 60 (>60) 06/18/19 06:08 Est GFR (MDRD) Non-Af > 60 (>60) 06/18/19 06:08 Glucose 97 mg/dL (75-110) 06/18/19 06:08 Hemoglobin A1c % 5.8 % (4.7-6.0) 06/18/19 06:08 Lactic Acid 1.5 mmol/L (0.7-2.1) 06/18/19 06:08 Lactic Acid (Sepsis) 3.9 mmol/L (0.7-2.1) H 06/16/19 23:13 Calcium 8.1 mg/dL (8.4-10.2) L 06/18/19 06:08 Total Bilirubin 0.8 mg/dL (0.2-1.3) 06/16/19 17:08 Direct Bilirubin 0.2 mg/dL (0.0-0.4) 06/16/19 17:08 Neonat Total Bilirubin Not Reportable 06/16/19 17:08 Neonat Direct Bilirubin Not Reportable 06/16/19 17:08 Neonat Indirect Bili Not Reportable 06/16/19 17:08 AST 29 U/L (17-59) 06/16/19 17:08 ALT 24 U/L (<50) 06/16/19 17:08 Alkaline Phosphatase 83 U/L (38-126) 06/16/19 17:08 Total Protein 7.8 g/dL (6.3-8.2) 06/16/19 17:08 Albumin 4.7 g/dL (3.5-5.0) 06/16/19 17:08 TSH 2.72 uIU/mL (0.47-4.68) 06/16/19 17:08 Urine Color YELLOW 06/16/19 18:15 Urine Appearance SLIGHTLY-CLOUDY 06/16/19 18:15 Urine pH 6.0 (5.0-9.0) 06/16/19 18:15 Ur Specific [place] 1.014 06/16/19 18:15 Urine Protein NEGATIVE mg/dL (NEGATIVE) 06/16/19 18:15 Urine Glucose (UA) NEGATIVE mg/dL (NEGATIVE) 06/16/19 18:15 Urine Ketones NEGATIVE mg/dL (NEGATIVE) 06/16/19 18:15 Urine Blood NEGATIVE (NEGATIVE) 06/16/19 18:15 Urine Nitrite (Reflex) NEGATIVE (NEGATIVE) 06/16/19 18:15 Urine Bilirubin NEGATIVE (NEGATIVE) 06/16/19 18:15 Urine Urobilinogen NEGATIVE mg/dL (<2.0) 06/16/19 18:15 Leukocyte Esterase Rfl NEGATIVE (NEGATIVE) 06/16/19 18:15 Urine RBC (Auto) 5 /HPF 06/16/19 18:15 U Hyaline Cast (Auto) 11 /LPF 06/16/19 18:15 Urine WBC (Reflex) 2 /HPF 06/16/19 18:15 Urine Mucus (Auto) MOD /LPF 06/16/19 18:15 Urine Ascorbic Acid NEGATIVE (NEGATIVE) 06/16/19 18:15 Acetaminophen < 10 ug/mL (10-30) L 06/16/19 17:08 Influenza A (Rapid) NEGATIVE (NEGATIVE) 06/16/19 18:15 Influenza B (Rapid) NEGATIVE (NEGATIVE) 06/16/19 18:15 Slides for Path Review PATHOLOGIST REVIEWED 06/17/19 06:05 Impressions: Chest X-Ray 06/16/19 17:06 IMPRESSION: Unchanged coarse bibasilar interstitial opacities. No acute pulmonary findings. Plan Time Spent: Greater than 30 Minutes Stroke Is this a Stroke Patient?: No Acute Heart Failure - Is this a Heart Failure Patient?: No
[2019-06-18 15:49] LABS: HEMOGLOBIN 11.4 g/dL (13.5-17.0); MEAN CORPUSCULAR HEMOGLOBIN 32.9 pg (27.0-33.4); MEAN CORPUSCULAR HGB CONC 34.5 g/dL (32.0-36.0); MEAN CORPUSCULAR VOLUME 95 fl (80-97); PLATELET COUNT 138 10^3/uL (150-450); RED BLOOD COUNT 3.47 10^6/uL (4.35-5.55); RED CELL DISTRIBUTION WIDTH 14.4 % (11.5-14.0); WHITE BLOOD COUNT 8.7 10^3/uL (4.0-10.5)
[2019-06-18] MEDS ORDERED: FERROUS SULFATE 325 MG TABLET PO SCH (17:00)
[2019-06-18 20:50] VITALS: BP 130/54
[2019-06-18] MEDS ORDERED: DOXYCYCLINE HYCLATE 100 MG TABLET PO SCH (22:00)
== END 2019-06-18 17:52 | disposition home health service (06) | DRG 871 ==
LOC: ER 16:57 → EH 19:36 → 4W 20:55 → 4S 06-17 17:10
PROVIDERS: ADMIT Internal Medicine; ATTEND Internal Medicine
PROC: 5A09357 Assistance with Respiratory Ventilation, Less than 24 Consecutive Hours, Continuous Positive Airway Pressure (ICD-10-PCS; principal; 2019-06-16)
DX: A41.9 Sepsis, unspecified organism (principal); J18.9 Pneumonia, unspecified organism; J96.01 Acute respiratory failure with hypoxia; G93.40 Encephalopathy, unspecified; J44.0 Chronic obstructive pulmonary disease with (acute) lower respiratory infection; J44.1 Chronic obstructive pulmonary disease with (acute) exacerbation; F03.90 Unspecified dementia, unspecified severity, without behavioral disturbance, psychotic disturbance, mood disturbance, and anxiety; Y95 Nosocomial condition; Z66 Do not resuscitate; I25.10 Atherosclerotic heart disease of native coronary artery without angina pectoris; E11.9 Type 2 diabetes mellitus without complications; E78.5 Hyperlipidemia, unspecified; I10 Essential (primary) hypertension; Z79.82 Long term (current) use of aspirin; I25.2 Old myocardial infarction; Z95.1 Presence of aortocoronary bypass graft
CPT/HCPCS: 36415; 51702; 71045; 80048; 80053; 80307; 81001; 82803; 83036; 83605; 84443; 85025; 85610; 87040; 87804; 93005; 93010; 94640; 94660; 96361; 96365; 99291; J1644; J2543; J3370; J3475; J3490; J7030; J7050; J7060; J7620

== ENCOUNTER 2019-06-19 07:56 | Inpatient (IN) | payer MEDICARE, BC ==
--- NOTE | 2019-06-19 09:42 | RADIOLOGY REPORT (SQ) ---
EXAM DESCRIPTION: CT HEAD WITHOUT COMPLETED DATE/TIME: 06/19/2019 9:29 am REASON FOR STUDY: fall COMPARISON: 12/06/2018 TECHNIQUE: Axial images acquired through the brain without intravenous contrast. Images reviewed wi th bone, brain and subdural windows. Additional sagittal and coronal reconstructions were generated. Images stored on PACS. All CT scanners at this facility use dose modulation, iterative reconstruction, and/or weight based d osing when appropriate to reduce radiation dose to as low as reasonably achievable (ALARA). [facility]: Dose Right [facility]: CareDose [facility]: Dose Right [facility]: Teradose 4D [facility]: Smart [employer] RADIATION DOSE: CT Rad equipment meets quality standard of care and radiation dose reduction techniq ues were employed. CTDIvol: 53.2 mGy. DLP: 1044 mGy-cm.mGy. LIMITATIONS: None. FINDINGS: VENTRICLES: Prominent. CEREBRUM: No masses. No hemorrhage. No midline shift. Areas of low density in the white matter mos t likely due to chronic micro-vascular ischemic change. No evidence for acute infarction. CEREBELLUM: No masses. No hemorrhage. No alteration of density. No evidence for acute infarction. EXTRAAXIAL SPACES: Age-related involutional change. No fluid collections. No masses. ORBITS AND GLOBE: No intra- or extraconal masses. Normal contour of globe without masses. CALVARIUM: No fracture. PARANASAL SINUSES: No fluid or mucosal thickening. SOFT TISSUES: No mass or hematoma. OTHER: No other significant finding. IMPRESSION: CHRONIC CHANGES OF ATROPHY AND MICROVASCULAR ISCHEMIA. NO ACUTE PROCESS. EVIDENCE OF ACUTE STROKE: NO. TECHNICAL DOCUMENTATION: JOB ID: [id number] Quality ID # [id number]: Final reports with documentation of one or more dose reduction techniques (e.g., Au tomated exposure control, adjustment of the mA and/or kV according to patient size, use of iterative reconstruction technique) 2010 [employer]- All Rights Reserved Reading location - IP/workstation name: [email or web address]
--- NOTE | 2019-06-19 09:44 | RADIOLOGY REPORT (SQ) ---
EXAM DESCRIPTION: CT CERVICAL SPINE WITHOUT COMPLETED DATE/TIME: 06/19/2019 9:29 am REASON FOR STUDY: fall COMPARISON: None. TECHNIQUE: Axial images acquired through the cervical spine without intravenous contrast. Images re viewed with lung, soft tissue and bone windows. Reconstructed coronal and sagittal MPR images review ed. Images stored on PACS. All CT scanners at this facility use dose modulation, iterative reconstruction, and/or weight based d osing when appropriate to reduce radiation dose to as low as reasonably achievable (ALARA). [facility]: Dose Right [facility]: CareDose [facility]: Dose Right [facility]: Teradose 4D [facility]: [employer] RADIATION DOSE: CT Rad equipment meets quality standard of care and radiation dose reduction techniq ues were employed. CTDIvol: 19.2 mGy. DLP: 379 mGy-cm. mGy. LIMITATIONS: None. FINDINGS: ALIGNMENT: Anatomic. MINERALIZATION: Normal. VERTEBRAL BODIES: No fractures or dislocation. DISCS: Multilevel disc space narrowing with osteophytes. FACETS, LATERAL MASSES, POSTERIOR ELEMENTS: Facet arthropathy. No fractures. No dislocation. No ac tribe findings. HARDWARE: None in the spine. VISUALIZED RIBS: No fractures. LUNG APICES AND SOFT TISSUES: No significant or acute findings. OTHER: No other significant finding. IMPRESSION: CHRONIC DEGENERATIVE CHANGES. NO ACUTE FINDINGS. TECHNICAL DOCUMENTATION: JOB ID: [id number] Quality ID # [id number]: Final reports with documentation of one or more dose reduction techniques (e.g., Au tomated exposure control, adjustment of the mA and/or kV according to patient size, use of iterative reconstruction technique) 2010 [employer]- All Rights Reserved Reading location - IP/workstation name: [email or web address]
--- NOTE | 2019-06-19 12:16 | ER Document Report ---
ED General - General Chief Complaint: Facial Injury Stated Complaint: FACIAL INJURY Primary Care Provider: FREDI GARDINER FNP-C [Primary Care Provider] - Follow up as needed TRAVEL OUTSIDE OF THE [place] IN LAST 30 DAYS: No - HPI Notes: 83wm, resident of "[facility]" [facility] very unsteady on feet on return from hospital last nighgt this am got up. got meds. son visits. - Related Data Allergies/Adverse Reactions: No Known Allergies Allergy (Verified 12/08/13 12:43) Past Medical History - Social History Smoking Status: Unknown if Ever Smoked Family History: Other - Unable to obtain Patient has suicidal ideation: No Patient has homicidal ideation: No - Past Medical History Cardiac Medical History: Reports: Hx Coronary Artery Disease, Hx Heart Attack, Hx Hypercholesterolemia, Hx Hypertension Pulmonary Medical History: Reports: Hx COPD Neurological Medical History: Denies: Hx Parkinson's Disease Endocrine Medical History: Reports: Hx Diabetes Mellitus Type 2 Renal/ Medical History: Denies: Hx Peritoneal Dialysis Malignancy Medical History: Denies Hx Lung Cancer GI Medical History: Denies: Hx Pancreatitis Musculoskeletal Medical History: Denies Hx Multiple Sclerosis Psychiatric Medical History: Reports: Hx Dementia Past Surgical History: Reports: Hx Cardiac Surgery - bypass x' s 5, Hx Coronary Artery Bypass Graft. Denies: Hx Colostomy, Hx Pacemaker - Immunizations Hx Diphtheria, Pertussis, Tetanus Vaccination: Yes - unsure Hx Pneumococcal Vaccination: 06/30/11 Physical Exam - Vital signs Vitals: Pulse Ox 92 06/19/19 08:04 Course - Vital Signs Vital signs: Temp Pulse Resp BP Pulse Ox 36 H 132/61 H 93 06/19/19 15:01 06/19/19 15:01 06/19/19 15:01 - Laboratory Result Diagrams: 06/19/19 14:36 06/19/19 14:36 Laboratory results interpreted by me: 06/19/19 06/19/19 06/19/19 12:05 14:36 14:36 RBC 3.44 L Hgb 11.4 L Hct 32.8 L RDW 14.5 H Plt Count 146 L Lymph % (Auto) 11.6 L Seg Neutrophils % 80.1 H Total Protein 6.1 L Albumin 3.2 L Urine Protein 30 H Urine Blood MODERATE H Discharge - Discharge Clinical Impression: Pleural effusion Pneumonia Qualifiers: Pneumonia type: due to unspecified organism Laterality: bilateral Fall Qualifiers: Encounter type: initial encounter Qualified Code(s): W19.XXXA - Unspecified fall, initial encounter Head injury due to trauma Qualifiers: Encounter type: initial encounter Qualified Code(s): S09.90XA - Unspecified injury of head, initial encounter Disposition: ADMITTED INPATIENT Admitting Provider: Jenny (Hospitalist) Unit Admitted: Telemetry Referrals: FREDI GARDINER, APPLICATIONS SUPPORT ANALYST-C [Primary Care Provider] - Follow up as needed
[2019-06-19 12:24] LABS: APPEARANCE,URINE SLIGHTLY-CLOUDY; BILIRUBIN,URINE NEGATIVE (NEGATIVE); COLOR,URINE YELLOW; GLUCOSE, URINE NEGATIVE (NEGATIVE); KETONES,URINE NEGATIVE (NEGATIVE); LEUKOCYTE ESTERASE,URINE NEGATIVE (NEGATIVE); NITRITE,URINE NEGATIVE (NEGATIVE); PROTEIN,URINE 30 mg/dL (NEGATIVE); URINE SPECIFIC GRAVITY 1.019; UROBILINOGEN,URINE NEGATIVE mg/dL (<2.0)
--- NOTE | 2019-06-19 13:02 | RADIOLOGY REPORT (SQ) ---
EXAM DESCRIPTION: ELBOW RIGHT OVER 2 VIEWS COMPLETED DATE/TIME: 06/19/2019 12:48 pm REASON FOR STUDY: swelling COMPARISON: None. NUMBER OF VIEWS: Four views. TECHNIQUE: AP, lateral, and both oblique radiographic images acquired of the right elbow. LIMITATIONS: None. FINDINGS: MINERALIZATION: Osteopenia. BONES: Dislocation of the radial head. Likely chronic. JOINT: Degenerative changes in the joint. Probable loose bodies. SOFT TISSUES: No soft tissue swelling. No foreign body. OTHER: No other significant finding. 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 Degenerative changes in the joint. TECHNICAL DOCUMENTATION: JOB ID: [id number] [employer]&- All Rights Reserved Reading location - IP/workstation name: [email or web address]
--- NOTE | 2019-06-19 13:03 | RADIOLOGY REPORT (SQ) ---
EXAM DESCRIPTION: WRIST RIGHT 3 VIEWS COMPLETED DATE/TIME: 06/19/2019 12:48 pm REASON FOR STUDY: swelling COMPARISON: None. NUMBER OF VIEWS: Three views. TECHNIQUE: AP, lateral, and oblique radiographic images acquired of the right wrist. LIMITATIONS: None. FINDINGS: MINERALIZATION: Normal. BONES: No acute fracture. Positive ulnar variance. Degenerative changes of the distal radioulnar mohan int and the radiocarpal joints. SOFT TISSUES: No soft tissue swelling. No foreign body. OTHER: No other significant finding. IMPRESSION: Degenerative changes. No acute fracture. TECHNICAL DOCUMENTATION: JOB ID: [id number] [employer]- All Rights Reserved Reading location - IP/workstation name: [email or web address]
--- NOTE | 2019-06-19 13:04 | RADIOLOGY REPORT (SQ) ---
EXAM DESCRIPTION: CHEST 2 VIEWS COMPLETED DATE/TIME: 06/19/2019 12:48 pm REASON FOR STUDY: sob COMPARISON: 06/16/2019 EXAM PARAMETERS: NUMBER OF VIEWS: two views TECHNIQUE: Digital Frontal and Lateral radiographic views of the chest acquired. RADIATION DOSE: NA LIMITATIONS: none FINDINGS: LUNGS AND PLEURA: Increasing opacities particularly at the right base. Kameron B-lines. MEDIASTINUM AND HILAR STRUCTURES: No masses or contour abnormalities. HEART AND VASCULAR STRUCTURES: Heart is enlarged with vascular congestion. BONES: Sternal wires HARDWARE: CABG hardware OTHER: No other significant finding. IMPRESSION: Congestive heart failure interstitial pulmonary edema. Alveolar pulmonary edema versus superimposed pneumonia. Worse than previous. TECHNICAL DOCUMENTATION: JOB ID: [id number] [employer]- All Rights Reserved Reading location - IP/workstation name: [email or web address]
[2019-06-19 14:45] LABS: ABSOLUTE EOSINOPHILS # (AUTO) 0.1 10^3/uL (0.0-0.6); ABSOLUTE LYMPHOCYTES (AUTO) 0.9 10^3/uL (0.5-4.7); ABSOLUTE MONOCYTES (AUTO) 0.5 10^3/uL (0.1-1.4); ABSOLUTE NEUT (AUTO) 6.4 10^3/uL (1.7-8.2); BASOPHILS % (AUTO) 0.5 % (0-2); EOSINOPHILS % (AUTO) 1.7 % (0-6); HEMATOCRIT 32.8 % (37.9-51.0); HEMOGLOBIN 11.4 g/dL (13.5-17.0); LYMPHOCYTES % (AUTO) 11.6 % (13-45); MEAN CORPUSCULAR HGB CONC 34.6 g/dL (32.0-36.0); MEAN CORPUSCULAR VOLUME 96 fl (80-97); MONOCYTES % (AUTO) 6.1 % (3-13); PLATELET COUNT 146 10^3/uL (150-450); RED BLOOD COUNT 3.44 10^6/uL (4.35-5.55); RED CELL DISTRIBUTION WIDTH 14.5 % (11.5-14.0); SEGMENTED NEUTROPHILS % (AUTO) 80.1 % (42-78); TOTAL CELLS COUNTED % (AUTO) 100 %; WHITE BLOOD COUNT 7.9 10^3/uL (4.0-10.5)
[2019-06-19 14:53] LABS: PROTHROMBIN TIME 15.2 SEC (11.4-15.4)
[2019-06-19 14:54] LABS: PARTIAL THROMBOPLASTIN TIME 25.7 SEC (23.5-35.8)
[2019-06-19 15:13] LABS: ALBUMIN 3.2 g/dL (3.5-5.0); ALKALINE PHOSPHATASE 72 U/L (38-126); ANION GAP 11 (5-19); ASPARTATE AMINO TRANSFERASE 36 U/L (17-59); BILIRUBIN,DIRECT 0.1 mg/dL (0.0-0.4); BILIRUBIN,TOTAL 0.9 mg/dL (0.2-1.3); BLOOD UREA NITROGEN 19 mg/dL (7-20); CALCIUM 8.7 mg/dL (8.4-10.2); CARBON DIOXIDE 23 mmol/L (22-30); CHLORIDE 104 mmol/L (98-107); GLUCOSE 84 mg/dL (75-110); POTASSIUM 3.6 mmol/L (3.6-5.0); TOTAL PROTEIN 6.1 g/dL (6.3-8.2)
--- NOTE | 2019-06-19 15:58 | RADIOLOGY REPORT (SQ) ---
EXAM DESCRIPTION: CT FACIAL AREA WITHOUT COMPLETED DATE/TIME: 06/19/2019 1:40 pm REASON FOR STUDY: facial deformity COMPARISON: None. TECHNIQUE: Noncontrasted images through the facial bones and orbits windowed for bone and soft tissu e. Additional coronal and sagittal reconstructed images reviewed. All images stored on PACS. All CT scanners at this facility use dose modulation, iterative reconstruction, and/or weight based d osing when appropriate to reduce radiation dose to as low as reasonably achievable (ALARA). [facility]: Dose Right [facility]: CareDose [facility]: Dose Right [facility]: Teradose 4D [facility]: [employer] RADIATION DOSE: CT Rad equipment meets quality standard of care and radiation dose reduction techniq ues were employed. CTDIvol: 30.4 mGy. DLP: 538 mGy-cm. mGy. LIMITATIONS: None. FINDINGS: FACIAL BONES: No fracture or bone lesion. ORBITS: Intact. No fracture. Symmetric intact globes and retroorbital soft tissues. PARANASAL SINUSES: Clear. No significant mucosal thickening, mass or fluid. No nasal polyps. Maxill maryse sinus outlets are patent. SOFT TISSUES: No mass or edema. INFERIOR BRAIN: Limited view. No acute findings. OTHER: No other significant finding. IMPRESSION: NO ACUTE FINDINGS. TECHNICAL DOCUMENTATION: JOB ID: [id number] Quality ID # [id number]: Final reports with documentation of one or more dose reduction techniques (e.g., Au tomated exposure control, adjustment of the mA and/or kV according to patient size, use of iterative reconstruction technique) 2010 [employer]- All Rights Reserved Reading location - IP/workstation name: [email or web address]
[2019-06-19] MEDS ORDERED: HALOPERIDOL LACTATE INJ 5 MG/1 ML VIAL IV ONE (18:44)
[2019-06-19] MEDS ORDERED: FUROSEMIDE INJ/PF 20 MG/2 ML SDV IV ONE (18:47)
[2019-06-19] MEDS ORDERED: HALOPERIDOL LACTATE INJ 5 MG/1 ML VIAL IV PRN (18:50)
[2019-06-19] MEDS ORDERED: KETOROLAC TROMETHAMINE INJ/PF 30 MG/1 ML SDV IV PRN (18:51)
[2019-06-19] MEDS ORDERED: IPRATROPIUM/ALBUTEROL 0.5-2.5 MG/3 ML AMPUL NEB PRN (18:51)
--- NOTE | 2019-06-19 18:59 | PDOC H&P ---
History of Present Illness Admission Date/PCP: 06/19/19 18:48 ARTEMIO HOLBROOK-C Patient complains of: confusion, unsteadiness History of Present Illness: RAMESH GUERRERO is a 83 year old male with a past medical history of dementia, CAD and diabetes mellitus type 2 who was brought in from [facility] due to being unsteady and fall at the [facility]. Patient was recently admitted and treated for H CAP. He was discharged yesterday on antibiotics. Son reports that he was still at low more confused than his baseline. Reportedly, he was unsteady on his feet earlier today at the [facility] and fell. In the ER, trauma work-up was unremarkable. Chest x-ray shows worsening of right lower lobe opacity and possibly increasing congestion compared to his previous x-ray. Son denies prior history of congestive heart failure. Past Medical History Cardiac Medical History: Reports: Coronary Artery Disease, Myocardial Infarction, Hyperlipidema, Hypertension Pulmonary Medical History: Reports: Chronic Obstructive Pulmonary Disease (COPD) Endocrine Medical History: Reports: Diabetes Mellitus Type 2 Malignancy Medical History: Denies: Lung Cancer Psychiatric Medical History: Reports: Dementia Past Surgical History Past Surgical History: Reports: Coronary Artery Bypass Graft Denies: Colostomy, Pacemaker Social History Smoking Status: Unknown if Ever Smoked Hx Recreational Drug Use: No Hx Prescription Drug Abuse: No Family History Family History: Other - Unable to obtain Parental Family History Reviewed: Yes - No premature CAD Children Family History Reviewed: No Sibling(s) Family History Reviewed.: No Medication/Allergy Home Medications: Aspirin [Aspirin 81 mg Chewable Tablet] 81 mg PO DAILY 06/24/18 Cyanocobalamin (Vitamin B-12) [Vitamin B-12 1000 mcg Tablet] 1,000 mcg PO DAILY 06/24/18 Docusate Sodium [Colace 100 mg Capsule] 100 mg PO BID 06/24/18 Famotidine [Pepcid 20 mg Tablet] 20 mg PO Q12 06/24/18 Ferrous Sulfate [Feosol 325 mg Tablet] 325 mg PO BID 06/24/18 Finasteride [Proscar 5 mg Tablet] 5 mg PO DAILY 06/24/18 Metoprolol Tartrate [Lopressor 50 mg Tablet] 50 mg PO Q12 06/24/18 Mirtazapine [Remeron 15 mg Tablet] 15 mg PO QHS 06/24/18 Multivitamin [Tab-A-Gerald (Multiple Vitamin) Tablet] 1 tab PO DAILY 06/24/18 Tamsulosin HCl [Flomax 0.4 mg Cap.sr] 0.4 mg PO QPM 06/24/18 Tiotropium [place] [Spiriva Handihaler 5 Cap/Kit (18 Mcg/Cap)] 1 puff IH DAILY 06/24/18 Risperidone [Risperdal] 0.5 mg PO Q12 06/17/19 Doxycycline Hyclate [Vibramycin 100 mg Tablet] 100 mg PO Q12 5 Days tablet 06/18/19 Allergies/Adverse Reactions: No Known Allergies Allergy (Verified 12/08/13 12:43) Review of Systems All systems: reviewed and no additional remarkable complaints except as stated - As mentioned in HPI Physical Exam Vital Signs: Temp Pulse Resp BP Pulse Ox 36 H 132/61 H 93 06/19/19 15:01 06/19/19 15:01 06/19/19 15:01 Intake & Output 06/18/19 06/19/19 06/20/19 06:59 06:59 06:59 Weight 145 lb 15.136 oz General appearance: PRESENT: no acute distress, well-developed, well-nourished Head exam: PRESENT: normocephalic Eye exam: PRESENT: conjunctiva pink, EOMI, PERRLA. ABSENT: scleral icterus Ear exam: PRESENT: normal external ear exam Mouth exam: PRESENT: moist, tongue midline Neck exam: ABSENT: carotid bruit, JVD, lymphadenopathy, thyromegaly Respiratory exam: PRESENT: clear to auscultation amarilis. ABSENT: rales, rhonchi, wheezes Cardiovascular exam: PRESENT: RRR. ABSENT: diastolic murmur, rubs, systolic murmur Pulses: PRESENT: normal dorsalis pedis pul GI/Abdominal exam: PRESENT: normal bowel sounds, soft. ABSENT: distended, guarding, mass, organolmegaly, rebound, tenderness Rectal exam: PRESENT: deferred Extremities exam: PRESENT: full ROM. ABSENT: calf tenderness, clubbing, pedal edema Neurological exam: PRESENT: alert, awake, oriented to person, CN II-XII grossly intact. ABSENT: motor sensory deficit Results Laboratory Results: 06/19/19 14:36 06/19/19 14:36 06/19/19 06/19/19 06/19/19 12:05 14:36 14:36 WBC 7.9 RBC 3.44 L Hgb 11.4 L Hct 32.8 L MCV 96 MCH 33.0 MCHC 34.6 RDW 14.5 H Plt Count 146 L Seg Neutrophils % 80.1 H Sodium 138.2 Potassium 3.6 Chloride 104 Carbon Dioxide 23 Anion Gap 11 BUN 19 Creatinine 0.70 Est GFR ( Amer) > 60 Glucose 84 Calcium 8.7 Total Bilirubin 0.9 AST 36 Alkaline Phosphatase 72 Total Protein 6.1 L Albumin 3.2 L Urine Color YELLOW Urine Appearance SLIGHTLY-CLOUDY Urine pH 6.0 Ur Specific [place] 1.019 Urine Protein 30 H Urine Glucose (UA) NEGATIVE Urine Ketones NEGATIVE Urine Blood MODERATE H Urine Nitrite NEGATIVE Ur Leukocyte Esterase NEGATIVE Urine WBC (Auto) 2 Urine RBC (Auto) 26 Impressions: Cervical Spine CT 06/19/19 00:00 IMPRESSION: CHRONIC DEGENERATIVE CHANGES. NO ACUTE FINDINGS. Head CT 06/19/19 00:00 IMPRESSION: CHRONIC CHANGES OF ATROPHY AND MICROVASCULAR ISCHEMIA. NO ACUTE PROCESS. EVIDENCE OF ACUTE STROKE: NO. Chest X-Ray 06/19/19 11:51 IMPRESSION: Congestive heart failure interstitial pulmonary edema. Alveolar pulmonary edema versus superimposed pneumonia. Worse than previous. Wrist X-Ray 06/19/19 11:53 IMPRESSION: Degenerative changes. No acute fracture. 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 Degenerative changes in the joint. Facial Bones CT 06/19/19 11:55 IMPRESSION: NO ACUTE FINDINGS. Assessment and Plan - Diagnosis (1) Acute encephalopathy Is this a current diagnosis for this admission?: Yes Plan: Patient son reports that he is still a little confused more than his baseline mentation. Likely related to ongoing pneumonia versus pulmonary edema in a dementia patient. (2) Pulmonary edema Is this a current diagnosis for this admission?: Yes Plan: Will start patient on IV Lasix. Will order chest CT to further assess if this i s just pneumonia or pulmonary edema. Will check a BNP and will pursue an echocardiogram as well. (3) Pneumonia Qualifiers: Pneumonia type: due to unspecified organism Laterality: bilateral Is this a current diagnosis for this admission?: Yes Plan: Start patient on IV Levaquin. (4) Coronary artery disease Qualifiers: Is this a current diagnosis for this admission?: Yes Plan: Resume home meds once verified. - Time Time Spent with patient: 25-34 minutes
--- NOTE | 2019-06-19 19:52 | RADIOLOGY REPORT (SQ) ---
EXAM DESCRIPTION: CT CHEST WITHOUT COMPLETED DATE/TIME: 06/19/2019 7:34 pm REASON FOR STUDY: SOB COMPARISON: None. TECHNIQUE: CT scan performed of the chest without intravenous contrast. Images reviewed with lung, soft tissue and bone windows. Reconstructed coronal and sagittal MPR images reviewed. All images st ored on PACS. All CT scanners at this facility use dose modulation, iterative reconstruction, and/or weight based d osing when appropriate to reduce radiation dose to as low as reasonably achievable (ALARA). [facility]: Dose Right [facility]: CareDose [facility]: Dose Right [facility]: Teradose 4D [facility]: Smart Technologies RADIATION DOSE: CT Rad equipment meets quality standard of care and radiation dose reduction techniq ues were employed. CTDIvol: 15.1 mGy. DLP: 648 mGy-cm. mGy. LIMITATIONS: No technical limitations. FINDINGS: LUNGS AND PLEURA: Small bilateral pleural effusions, left greater than right. Mild inters titial thickening with scattered ground-glass opacities. More confluent airspace opacities are prese nt in both lower lobes and inferior lingula and right middle lobe. HILAR AND MEDIASTINAL STRUCTURES: 12 cm hiatus hernia. No obvious aneurysm. HEART AND VASCULAR STRUCTURES: Prior CABG. No aneurysm. No pericardial effusion. UPPER ABDOMEN: No acute finding.. Limited exam. THYROID AND OTHER SOFT TISSUES: No masses. No adenopathy. BONES: No acute finding. HARDWARE: CABG. OTHER: No other significant findings. IMPRESSION: Small bilateral pleural effusions, left greater than right. Mild interstitial thickenin g with scattered ground-glass opacities. More confluent airspace opacities are present in both lower lobes and inferior lingula and right middle lobe. Infection should be excluded clinically, asymmetr ic edema may also have this appearance. TECHNICAL DOCUMENTATION: JOB ID: [id number] Quality ID # [id number]: Final reports with documentation of one or more dose reduction techniques (e.g., Au tomated exposure control, adjustment of the mA and/or kV according to patient size, use of iterative reconstruction technique) 2010 [employer]- All Rights Reserved Reading location - IP/workstation name: [email or web address]
[2019-06-19] MEDS ORDERED: LEVOFLOXACIN 500 MG/D5W RTU 500 MG/100 ML RTUPB IV ONE (20:00)
--- NOTE | 2019-06-19 21:26 | EKG REPORT ---
SEVERITY:- ABNORMAL ECG - SINUS RHYTHM NONSPECIFIC INTRAVENTRICULAR CONDUCTION DELAY LOW VOLTAGE IN FRONTAL LEADS ARTIFACTS NOTED REC REPEAT EKG : Confirmed by: Mary Garza 19-Jun-2019 21:26:33
[2019-06-19] MEDS: HEPARIN SOD (PORCINE) 5,000 UNIT/ML 1 ML VIAL SUBCUT SCH (22:52)
[2019-06-19] MEDS: POTASSIUM CHLORIDE 10 MEQ TABLET.ER PO SCH (22:54)
[2019-06-20] MEDS: HEPARIN SOD (PORCINE) 5,000 UNIT/ML 1 ML VIAL SUBCUT SCH ×3 (06:00→21:27)
[2019-06-20] MEDS ORDERED: FUROSEMIDE INJ/PF 20 MG/2 ML SDV IV SCH (06:00)
[2019-06-20] MEDS: RISPERIDONE 0.25 MG TABLET PO SCH ×2 (09:56→17:16)
[2019-06-20] MEDS: ASPIRIN 81 MG TABLET, CHEWABLE PO SCH (09:56)
[2019-06-20] MEDS: POTASSIUM CHLORIDE 10 MEQ TABLET.ER PO SCH (09:56)
--- NOTE | 2019-06-20 13:22 | PDOC PROGRESS REPORT ---
Subjective Progress Note for:: 06/20/19 Subjective:: RAMESH GUERRERO is a 83 year old male with a past medical history of dementia, CAD and diabetes mellitus type 2 who was brought in from [facility] due to being unsteady and fall at the [facility]. Patient was recently admitted and treated for H CAP. He was discharged yesterday on antibiotics. Son reports that he was still at low more confused than his baseline. Reportedly, he was unsteady on his feet earlier today at the [facility] and fell. In the ER, trauma work-up was unremarkable. Chest x-ray shows worsening of right lower lobe opacity and possibly increasing congestion compared to his previous x-ray. Son denies prior history of congestive heart failure. No acute event overnight. Chest CT shows multifocal pneumonia. BNP came back elevated. Echo ordered and is pending. On encounter, he appears comfortable on room air. Denies chest pain or shortness of breath. Reason For Visit: WORSENING PNEUMONIA VS PULMONARY EDEMA Physical Exam Vital Signs: Temp Pulse Resp BP Pulse Ox 97.7 F 79 21 H 140/63 H 99 06/20/19 08:18 06/20/19 08:18 06/20/19 08:18 06/20/19 08:18 06/20/19 08:18 Intake & Output 06/19/19 06/20/19 06/21/19 06:59 06:59 06:59 Intake Total 100 240 Output Total 2250 Balance -2150 240 Weight 152 lb 5.431 oz General appearance: PRESENT: no acute distress, well-developed, well-nourished Head exam: PRESENT: atraumatic, normocephalic Eye exam: PRESENT: conjunctiva pink, EOMI, PERRLA. ABSENT: scleral icterus Ear exam: PRESENT: normal external ear exam Mouth exam: PRESENT: moist, tongue midline Neck exam: ABSENT: carotid bruit, JVD, lymphadenopathy, thyromegaly Respiratory exam: PRESENT: rhonchi. ABSENT: rales, wheezes Cardiovascular exam: PRESENT: RRR. ABSENT: diastolic murmur, rubs, systolic murmur Pulses: PRESENT: normal dorsalis pedis pul GI/Abdominal exam: PRESENT: normal bowel sounds, soft. ABSENT: distended, guarding, mass, organolmegaly, rebound, tenderness Rectal exam: PRESENT: deferred Neurological exam: PRESENT: alert, awake, oriented to person, CN II-XII grossly intact. ABSENT: motor sensory deficit Results Laboratory Results: 06/19/19 14:36 06/19/19 14:36 06/19/19 06/19/19 14:36 14:36 WBC 7.9 RBC 3.44 L Hgb 11.4 L Hct 32.8 L MCV 96 MCH 33.0 MCHC 34.6 RDW 14.5 H Plt Count 146 L Seg Neutrophils % 80.1 H Sodium 138.2 Potassium 3.6 Chloride 104 Carbon Dioxide 23 Anion Gap 11 BUN 19 Creatinine 0.70 Est GFR ( Amer) > 60 Glucose 84 Calcium 8.7 Total Bilirubin 0.9 AST 36 Alkaline Phosphatase 72 Total Protein 6.1 L Albumin 3.2 L 06/19/19 14:36 NT-Pro-B Natriuret Pep 1740 H Impressions: Cervical Spine CT 06/19/19 00:00 IMPRESSION: CHRONIC DEGENERATIVE CHANGES. NO ACUTE FINDINGS. Chest CT 06/19/19 00:00 IMPRESSION: Small bilateral pleural effusions, left greater than right. Mild interstitial thickening with scattered ground-glass opacities. More confluent airspace opacities are present in both lower lobes and inferior lingula and right middle lobe. Infection should be excluded clinically, asymmetric edema may also have this appearance. Head CT 06/19/19 00:00 IMPRESSION: CHRONIC CHANGES OF ATROPHY AND MICROVASCULAR ISCHEMIA. NO ACUTE PROCESS. EVIDENCE OF ACUTE STROKE: NO. Chest X-Ray 06/19/19 11:51 IMPRESSION: Congestive heart failure interstitial pulmonary edema. Alveolar pulmonary edema versus superimposed pneumonia. Worse than previous. Wrist X-Ray 06/19/19 11:53 IMPRESSION: Degenerative changes. No acute fracture. 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 Degenerative changes in the joint. Facial Bones CT 06/19/19 11:55 IMPRESSION: NO ACUTE FINDINGS. Assessment and Plan - Diagnosis (1) Pneumonia Qualifiers: Pneumonia type: due to unspecified organism Laterality: bilateral Is this a current diagnosis for this admission?: Yes Plan: Chest CT shows multifocal pneumonia. Sputum culture ordered. Continue levofloxacin for now. (2) Acute encephalopathy Is this a current diagnosis for this admission?: Yes Plan: Improving. Likely related to ongoing pneumonia versus pulmonary edema in a dementia patient. (3) Pulmonary edema Is this a current diagnosis for this admission?: Yes Plan: BNP came back elevated. Echo ordered and is pending. Decrease IV Lasix to 20 mg daily. (4) Coronary artery disease Qualifiers: Is this a current diagnosis for this admission?: Yes Plan: Resume home meds. - Time Time Spent with patient: 25-34 minutes
[2019-06-20] MEDS: LEVOFLOXACIN 500 MG/D5W RTU 500 MG/100 ML RTUPB IV SCH (21:30)
[2019-06-21 04:41] LABS: ABSOLUTE EOSINOPHILS # (AUTO) 0.2 10^3/uL (0.0-0.6); ABSOLUTE LYMPHOCYTES (AUTO) 0.5 10^3/uL (0.5-4.7); ABSOLUTE MONOCYTES (AUTO) 0.8 10^3/uL (0.1-1.4); ABSOLUTE NEUT (AUTO) 4.1 10^3/uL (1.7-8.2); BASOPHILS % (AUTO) 0.3 % (0-2); EOSINOPHILS % (AUTO) 3.4 % (0-6); HEMATOCRIT 32.1 % (37.9-51.0); HEMOGLOBIN 11.2 g/dL (13.5-17.0); LYMPHOCYTES % (AUTO) 9.5 % (13-45); MEAN CORPUSCULAR HGB CONC 34.8 g/dL (32.0-36.0); MEAN CORPUSCULAR VOLUME 95 fl (80-97); PLATELET COUNT 171 10^3/uL (150-450); RED BLOOD COUNT 3.38 10^6/uL (4.35-5.55); RED CELL DISTRIBUTION WIDTH 14.4 % (11.5-14.0); SEGMENTED NEUTROPHILS % (AUTO) 72.8 % (42-78); TOTAL CELLS COUNTED % (AUTO) 100 %; WHITE BLOOD COUNT 5.7 10^3/uL (4.0-10.5)
[2019-06-21 05:02] LABS: ANION GAP 11 (5-19); BLOOD UREA NITROGEN 20 mg/dL (7-20); CALCIUM 8.6 mg/dL (8.4-10.2); CARBON DIOXIDE 23 mmol/L (22-30); CHLORIDE 103 mmol/L (98-107); GLUCOSE 115 mg/dL (75-110); POTASSIUM 3.8 mmol/L (3.6-5.0)
[2019-06-21] MEDS: HEPARIN SOD (PORCINE) 5,000 UNIT/ML 1 ML VIAL SUBCUT SCH ×3 (05:28→22:31)
--- NOTE | 2019-06-21 09:55 | ST Inp Modified Barium Swallow ---
Medical Diagnosis - Medical Diagnoses Medical Diagnosis Description & ICD-10 Code(s): acute encephalopathy, pneumonia - ICD-10 Tx Diagnosis Coding (1) Dysphagia ICD-10 Code(s): R13.10 - DYSPHAGIA, UNSPECIFIED ST Inpatient MBS - General Date: 06/21/19 Date of Onset: 06/19/19 - admit date - History -: Medical - per EMR: patient admitted 06/19 with confusion and unsteadiness. Prior medical status includes dementia, CAD, diabetes, COPD. Patient was previously admitted on 06/16, with a history as follows: "patient admitted 06/16 with vomiting and shortness of breath. Prior medical history includes dementia, CAD, COPD. Physician order speech eval due to "spitting up all of his food, coughing". Patient is currently on a nectar thick liquid and mechanical soft ground meats diet. However, it's believed that the patient was on a regular diet prior to hospitalization." As of 06/21, the patient is demonstrating worsening right side pneumonia. Due to no signs of aspiration at bedside, MBSS is recommended to further assess swallow function. Medications: Medications Reviewed Allergies: No known allergies - Subjective Current Nutritional Means: PO Current PO Diet: Pureed - with regular liquids Current Symptoms: Pneumonia Pain: Patient reports, 0/5 - Objective Assessment: Upright, Left Lateral - Food Trials Food Trials Used: Thin liquids, Pureed, Regular The Patient: Required Assist - Assessment Labial Function: Within Normal Limits Lingual Function: Within Normal Limits Mandibular Function: Within Normal Limits Dentition: Edentulous Velo-Pharyngeal Function: Unremarkable - Pharyngeal Stage Initiation of Pharyngeal Stage: Delayed - bolus in pyriform sinus prior to swallow initiation, very quick movement of bolus into pyriform. Decreased Laryngeal Elevation: Yes - mild Reduced Velo-Pharyngeal Closure: no Reduced Pressure Generation: No Reduced Tongue Base Retraction: No Pre-Swallowing Pooling in Valleculae: Significant Pre-Swallowing Pooling in Pyriforms: Significant Reduced Thyro-Hyiod Approximation: Yes - mild Reduced Epiglottic Excursion: No Reduced Pharyngeal Peristalsis: No Multiple Swallows With: Cleared w/ Dry Swallow Post Swallow Residuals in Valleculae: Mild Post Swallow Residuals in Pyriforms: None Pahryngeal Stage Comments: Patient demonstrated delayed pharyngeal swallow reflex with bolus well established in valleculae and pyriform prior to swallow. However, no material entered the airway with cup or spoon presentations of any textures. With straw sips, penetration of thin liquid was seen, which deepened with subsequent sips. Trace amounts of this were eventually seen to reach the level of the vocal folds with likely aspiration. 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 Discussed results of study with physician, who is in agreement with diet recommendations. Educated nursing on need for STRICT ASPIRATION PRECAUTIONS, NO STRAWS. - Time Total Time: 30 Total Timed Minutes: 30
[2019-06-21] MEDS ORDERED: FUROSEMIDE INJ/PF 20 MG/2 ML SDV IV SCH (10:00)
[2019-06-21] MEDS ORDERED: POTASSIUM CHLORIDE 10 MEQ TABLET.ER PO SCH (10:00)
[2019-06-21] MEDS: ASPIRIN 81 MG TABLET, CHEWABLE PO SCH (10:02)
[2019-06-21] MEDS: RISPERIDONE 0.25 MG TABLET PO SCH ×2 (10:02→18:33)
[2019-06-21] MEDS ORDERED: OLANZAPINE INJ/PF 10 MG SDV IM ONE (11:30)
--- NOTE | 2019-06-21 11:49 | RADIOLOGY REPORT (SQ) ---
EXAM DESCRIPTION: PADMINI SWALLOW COMPLETED DATE/TIME: 06/21/2019 9:47 am REASON FOR STUDY: worsening R side pna J12.9 VIRAL PNEUMONIA, UNSPECIFIED COMPARISON: None. TECHNIQUE: Videofluoroscopic swallowing examination was performed in conjunction with speech patholo gy. Videofluoroscopic imaging was obtained and reviewed and these are the findings: RADIATION DOSE: 1 minutes 26 seconds of fluoroscopy was used. 2 images saved to PACS. LIMITATIONS: None FINDINGS: The patient was brought into the fluoro room and placed upright on a modified barium swall ow chair. The patient was then given multiple consistencies mixed with barium to swallow under live fluoroscopic video guidance. According to the Speech Pathologist there was laryngeal penetration and aspiration of thin barium. It has there is spillage over the base tongue with pooling in the vallec ular and spillage into the piriform sinuses before initiation of swallow. IMPRESSION: LARYNGEAL PENETRATION AND ASPIRATION ABOVE. PLEASE SEE SPEECH PATHOLOGIST REPORT FOR OTHER FINDINGS AND RECOMMENDATIONS. COMMENT: Quality ID [id number]: Final reports for procedures using fluoroscopy that document radiation exp osure indices, or exposure time and number of fluorographic images (if radiation exposure indices are not available) TECHNICAL DOCUMENTATION: JOB ID: [id number] [email or web address]- All Rights Reserved Reading location - IP/workstation name: [email or web address] [id number]
--- NOTE | 2019-06-21 12:33 | XCELERA REPORT ---
[address] [address] Transthoracic Echocardiogram Report Name: RAMESH GUERRERO Age: 83 yrs Gender: Male : 1935 Patient Status: Inpatient Patient Location: [address] [place] [address] Study Date: 06/21/2019 10:10 AM Height: 69 in Weight: 145 lb BSA: 1.8 m2 Procedure: A complete two-dimensional transthoracic echocardiogram was performed (2D, M-mode, spectral and color flow Doppler). The study was technically adequate with some images being suboptimal in quality. Reason For Study: pulmonary edema Ordering Physician: WISAM RAMOS Performed By: Alaina Toney Interpretation Summary Left ventricular systolic function is low normal. Doppler measurements suggest pseudonormalized left ventricular relaxation, which is associated with grade II/IV or mild to moderate diastolic dysfunction There is mild concentric left ventricular hypertrophy. The left ventricle is grossly normal size. Wall motion cannot be accurately commented on, but no definite regional wall motion abnormalities noted. The right ventricle is grossly normal size. The right ventricular systolic function is normal. The left atrium is mildly dilated. The right atrium is normal. There is a mild amount of mitral regurgitation There is no mitral valve stenosis. There is a mild amount of aortic regurgitation There is no aortic valve stenosis There is a trace or physiologic amount of tricuspid regurgitation Tricuspid regurgitation jet envelope not well defined to measure RV systolic pressure accurately. The aortic root is not well visualized but is probably normal size. The inferior vena cava appeared normal and decreased > 50% with respiration (RAP 5-10 mmHg) There is no pericardial effusion. MMode/2D Measurements & Calculations RVDd: 3.8 cm LVIDd: 5.1 cm FS: 38.8 % Ao root diam: 3.8 cm IVSd: 0.85 cm LVIDs: 3.1 cm EDV(Teich): 122.4 ml Ao root area: 11.4 cm2 LVPWd: 1.0 cm ESV(Teich): 38.1 ml EF(Teich): 68.8 % Doppler Measurements & Calculations MV E max hayes: MV dec slope: Ao V2 max: AI max hayes: 57.6 cm/sec 228.6 cm/sec2 157.1 cm/sec 343.0 cm/sec MV A max hayes: MV dec time: Ao max PG: AI max P.1 mmHg 117.2 cm/sec 0.25 sec 9.9 mmHg AI dec slope: MV E/A: 0.49 158.1 cm/sec2 AI P1/2t: 635.4 msec LV V1 max PG: PA V2 max: PI end-d hayes: TR max hayes: 3.1 mmHg 80.3 cm/sec 86.1 cm/sec 222.4 cm/sec LV V1 max: PA max P.6 mmHg TR max P.8 mmHg 88.0 cm/sec Left Ventricle The left ventricle is grossly normal size. There is mild concentric left ventricular hypertrophy. Left ventricular systolic function is low normal. Doppler measurements suggest pseudonormalized left ventricular relaxation, which is associated with grade II/IV or mild to moderate diastolic dysfunction. Wall motion cannot be accurately commented on, but no definite regional wall motion abnormalities noted. Right Ventricle The right ventricle is grossly normal size. There is normal right ventricular wall thickness. The right ventricular systolic function is normal. Atria The right atrium is normal. The left atrium is mildly dilated. Interarterial septum not well visualized and not well dopplered. Cannot comment on ASD/PFO presence. Mitral Valve The mitral valve leaflets are sclerotic and show some degree of functional abnormality. There is no mitral valve stenosis. There is a mild amount of mitral regurgitation. Aortic Valve The aortic valve is mildly calcified. There is no aortic valve stenosis. There is a mild amount of aortic regurgitation. Tricuspid Valve The tricuspid valve is not well visualized, but is grossly normal. There is no tricuspid stenosis. There is a trace or physiologic amount of tricuspid regurgitation. Tricuspid regurgitation jet envelope not well defined to measure RV systolic pressure accurately. Pulmonic Valve The pulmonic valve is not well visualized. Great Vessels The aortic root is not well visualized but is probably normal size. The inferior vena cava appeared normal and decreased > 50% with respiration (RAP 5-10 mmHg). Effusions There is no pericardial effusion. : WISAM RAMOS Shyamal
--- NOTE | 2019-06-21 13:49 | PDOC PROGRESS REPORT ---
Subjective Progress Note for:: 06/21/19 Subjective:: RAMESH GUERRERO is a 83 year old male with a past medical history of dementia, CAD and diabetes mellitus type 2 who was brought in from [facility] due to being unsteady and fall at the [facility]. Patient was recently admitted and treated for H CAP. He was discharged yesterday on antibiotics. Son reports that he was still at low more confused than his baseline. Reportedly, he was unsteady on his feet earlier today at the [facility] and fell. In the ER, trauma work-up was unremarkable. Chest x-ray shows worsening of right lower lobe opacity and possibly increasing congestion compared to his previous x-ray. Son denies prior history of congestive heart failure. 06/20: Chest CT shows multifocal pneumonia. BNP came back elevated. Echo ordered and is pending. On encounter, he appears comfortable on room air. Denies chest pain or shortness of breath. 06/21: No acute event overnight. Appears his mentation is improving and returning to baseline. Denies chest pain or shortness of breath on encounter. Discussed with speech therapy. He is at high risk for aspiration. Suspect there is some component of aspiration with his multifocal pneumonia. Continue IV antibiotics for at least another 24 hours before switching to PO antibiotics Reason For Visit: WORSENING PNEUMONIA VS PULMONARY EDEMA Physical Exam Vital Signs: Temp Pulse Resp BP Pulse Ox 98.0 F 86 16 121/59 L 95 06/21/19 08:00 06/21/19 09:02 06/21/19 09:02 06/21/19 08:00 06/21/19 09:02 Intake & Output 06/20/19 06/21/19 06/22/19 06:59 06:59 06:59 Intake Total 100 1150 Output Total 2250 2000 Balance -2150 -850 Weight 152 lb 5.431 oz 145 lb 11.609 oz General appearance: PRESENT: no acute distress, well-developed, well-nourished Head exam: PRESENT: atraumatic, normocephalic Eye exam: PRESENT: conjunctiva pink, EOMI, PERRLA. ABSENT: scleral icterus Ear exam: PRESENT: normal external ear exam Mouth exam: PRESENT: moist, tongue midline Neck exam: ABSENT: carotid bruit, JVD, lymphadenopathy, thyromegaly Respiratory exam: PRESENT: rhonchi. ABSENT: rales, wheezes Cardiovascular exam: PRESENT: RRR. ABSENT: diastolic murmur, rubs, systolic murmur Pulses: PRESENT: normal dorsalis pedis pul GI/Abdominal exam: PRESENT: normal bowel sounds, soft. ABSENT: distended, guarding, mass, organolmegaly, rebound, tenderness Rectal exam: PRESENT: deferred Neurological exam: PRESENT: alert, awake, oriented to person, CN II-XII grossly intact. ABSENT: motor sensory deficit Results Laboratory Results: 06/21/19 04:21 06/21/19 04:21 06/21/19 06/21/19 04:21 04:21 WBC 5.7 RBC 3.38 L Hgb 11.2 L Hct 32.1 L MCV 95 MCH 33.0 MCHC 34.8 RDW 14.4 H Plt Count 171 Seg Neutrophils % 72.8 Sodium 137.2 Potassium 3.8 Chloride 103 Carbon Dioxide 23 Anion Gap 11 BUN 20 Creatinine 0.79 Est GFR ( Amer) > 60 Glucose 115 H Calcium 8.6 06/19/19 14:36 NT-Pro-B Natriuret Pep 1740 H Impressions: Cervical Spine CT 06/19/19 00:00 IMPRESSION: CHRONIC DEGENERATIVE CHANGES. NO ACUTE FINDINGS. Chest CT 06/19/19 00:00 IMPRESSION: Small bilateral pleural effusions, left greater than right. Mild interstitial thickening with scattered ground-glass opacities. More confluent airspace opacities are present in both lower lobes and inferior lingula and right middle lobe. Infection should be excluded clinically, asymmetric edema may also have this appearance. Head CT 06/19/19 00:00 IMPRESSION: CHRONIC CHANGES OF ATROPHY AND MICROVASCULAR ISCHEMIA. NO ACUTE PROCESS. EVIDENCE OF ACUTE STROKE: NO. Chest X-Ray 06/19/19 11:51 IMPRESSION: Congestive heart failure interstitial pulmonary edema. Alveolar pulmonary edema versus superimposed pneumonia. Worse than previous. Wrist X-Ray 06/19/19 11:53 IMPRESSION: Degenerative changes. No acute fracture. 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 Degenerative changes in the joint. Facial Bones CT 06/19/19 11:55 IMPRESSION: NO ACUTE FINDINGS. Assessment and Plan - Diagnosis (1) Pneumonia Qualifiers: Pneumonia type: due to unspecified organism Laterality: bilateral Is this a current diagnosis for this admission?: Yes Plan: Chest CT shows multifocal pneumonia. Sputum culture ordered. Continue levofloxacin for now. 06/21: Appears his mentation is improving and returning to baseline. Denies chest pain or shortness of breath on encounter. Discussed with speech therapy. He is at high risk for aspiration. Suspect there is some component of aspiration with his multifocal pneumonia. Continue IV antibiotics for at least another 24 hours before switching to PO antibiotics (2) Acute encephalopathy Is this a current diagnosis for this admission?: Yes Plan: Acute metabolic encephalopathy. Improving. Likely related to ongoing pneumonia in a dementia patient. (3) Pulmonary edema Is this a current diagnosis for this admission?: Yes Plan: BNP came back elevated. 06/21: Echo showed normal EF with grade 2 DD. Discontinue IV Lasix. CXR findings is likely from multifocal pneumonia rather than pulmonary edema. (4) Coronary artery disease Qualifiers: Is this a current diagnosis for this admission?: Yes Plan: Continue home meds. - Time Time Spent with patient: 25-34 minutes
[2019-06-21] MEDS: ACETAMINOPHEN 325 MG TABLET PO PRN (19:54)
[2019-06-21] MEDS: LEVOFLOXACIN 500 MG/D5W RTU 500 MG/100 ML RTUPB IV SCH (22:32)
[2019-06-22] MEDS: HEPARIN SOD (PORCINE) 5,000 UNIT/ML 1 ML VIAL SUBCUT SCH ×3 (06:46→21:12)
[2019-06-22] MEDS: ASPIRIN 81 MG TABLET, CHEWABLE PO SCH (09:50)
[2019-06-22] MEDS: RISPERIDONE 0.25 MG TABLET PO SCH ×2 (09:50→17:11)
--- NOTE | 2019-06-22 13:41 | PDOC PROGRESS REPORT ---
Subjective Progress Note for:: 06/22/19 Subjective:: RAMESH GUERRERO is a 83 year old male with a past medical history of dementia, CAD and diabetes mellitus type 2 who was brought in from [facility] due [facility] Patient was recently admitted and treated for H CAP. He was discharged yesterday on antibiotics. Son reports that he was still more confused than his baseline. Reportedly, he was unsteady on his feet earlier today at the [facility] and fell. In the ER, trauma work-up was unremarkable. Chest x-ray shows worsening of right lower lobe opacity and possibly increasing congestion compared to his previous x-ray. Son denies prior history of congestive heart failure. 06/22/2019. No acute events overnight. Patient comfortably sitting in bed no apparent distress. Denies any fever, chills, nausea, vomiting, diarrhea, constipation or any urinary symptoms. Alert and oriented x2, cooperative with physical examination. P.o. tolerant and having normal bladder and bladder movement. Reason For Visit: WORSENING PNEUMONIA VS PULMONARY EDEMA Physical Exam Vital Signs: Temp Pulse Resp BP Pulse Ox 97.9 F 83 16 135/58 H 93 06/22/19 12:00 06/22/19 12:00 06/22/19 12:00 06/22/19 12:00 06/22/19 12:00 Intake & Output 06/21/19 06/22/19 06/23/19 06:59 06:59 06:59 Intake Total 1150 340 Output Total 1999 1575 Balance -850 -1235 Weight 66.1 kg 66.2 kg General appearance: PRESENT: no acute distress, well-developed, well-nourished Head exam: PRESENT: atraumatic, normocephalic Respiratory exam: PRESENT: clear to auscultation amarilis. ABSENT: rales, rhonchi, wheezes Cardiovascular exam: PRESENT: RRR. ABSENT: diastolic murmur, rubs, systolic murmur GI/Abdominal exam: PRESENT: normal bowel sounds, soft. ABSENT: distended, guarding, mass, organolmegaly, rebound, tenderness Neurological exam: PRESENT: alert, awake, oriented to person, CN II-XII grossly intact. ABSENT: motor sensory deficit Skin exam: PRESENT: dry, intact, skin tears - Bridge of the nose., warm. ABSENT: cyanosis, rash Results Laboratory Results: 06/21/19 04:21 06/21/19 04:21 06/19/19 14:36 NT-Pro-B Natriuret Pep 1740 H Impressions: Cervical Spine CT 06/19/19 00:00 IMPRESSION: CHRONIC DEGENERATIVE CHANGES. NO ACUTE FINDINGS. Chest CT 06/19/19 00:00 IMPRESSION: Small bilateral pleural effusions, left greater than right. Mild interstitial thickening with scattered ground-glass opacities. More confluent airspace opacities are present in both lower lobes and inferior lingula and right middle lobe. Infection should be excluded clinically, asymmetric edema may also have this appearance. Head CT 06/19/19 00:00 IMPRESSION: CHRONIC CHANGES OF ATROPHY AND MICROVASCULAR ISCHEMIA. NO ACUTE PROCESS. EVIDENCE OF ACUTE STROKE: NO. Chest X-Ray 06/19/19 11:51 IMPRESSION: Congestive heart failure interstitial pulmonary edema. Alveolar pulmonary edema versus superimposed pneumonia. Worse than previous. Wrist X-Ray 06/19/19 11:53 IMPRESSION: Degenerative changes. No acute fracture. 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 Degenerative changes in the joint. Facial Bones CT 06/19/19 11:55 IMPRESSION: NO ACUTE FINDINGS. Modified Barium Swallow 06/21/19 00:00 IMPRESSION: LARYNGEAL PENETRATION AND ASPIRATION ABOVE. PLEASE SEE SPEECH PATHOLOGIST REPORT FOR OTHER FINDINGS AND RECOMMENDATIONS. Assessment and Plan - Diagnosis (1) Acute encephalopathy Is this a current diagnosis for this admission?: Yes Plan: Acute metabolic encephalopathy. Improving. Likely related to ongoing pneumonia in a dementia patient. (2) Coronary artery disease Qualifiers: Is this a current diagnosis for this admission?: Yes Plan: Denies any anginal symptoms. Restart home meds. (3) Dementia Is this a current diagnosis for this admission?: Yes Plan: Continue supportive measures. Fall precautions. (4) Dysphagia Is this a current diagnosis for this admission?: Yes Plan: MBS positive for laryngeal aspiration. Speech therapy on board. Recommendations noted. (5) Pneumonia Qualifiers: Pneumonia type: due to unspecified organism Laterality: bilateral Is this a current diagnosis for this admission?: Yes Plan: Chest CT shows multifocal pneumonia. Sputum culture ordered. Continue levofloxacin for now. (6) Pulmonary edema Is this a current diagnosis for this admission?: Yes Plan: BNP came back elevated. 06/21: Echo showed normal EF with grade 2 DD. Discontinue IV Lasix. CXR findings is likely from multifocal pneumonia rather than pulmonary edema.
[2019-06-22] MEDS: TAMSULOSIN HCL 0.4 MG CAP.SR.24H PO SCH (17:11)
[2019-06-22] MEDS: DOCUSATE SODIUM 100 MG CAPSULE PO SCH (17:11)
[2019-06-22] MEDS: FERROUS SULFATE 325 MG TABLET PO SCH (17:11)
[2019-06-22] MEDS: ACETAMINOPHEN 325 MG TABLET PO PRN (20:45)
[2019-06-22] MEDS: LEVOFLOXACIN 500 MG/D5W RTU 500 MG/100 ML RTUPB IV SCH (21:07)
[2019-06-22] MEDS: MIRTAZAPINE 15 MG TABLET PO SCH (21:08)
[2019-06-22] MEDS: METOPROLOL TARTRATE 50 MG TABLET PO SCH (21:08)
[2019-06-22] MEDS: FAMOTIDINE 20 MG TABLET PO SCH (21:09)
[2019-06-22] MEDS ORDERED: (PENDING PHARMACY ID) (Risperidone [Risperdal] 0.5 MG) PO SCH (22:00)
[2019-06-23] MEDS: HEPARIN SOD (PORCINE) 5,000 UNIT/ML 1 ML VIAL SUBCUT SCH ×3 (06:00→23:12)
[2019-06-23] MEDS: ASPIRIN 81 MG TABLET, CHEWABLE PO SCH (09:12)
[2019-06-23] MEDS: CYANOCOBALAMIN (VITAMIN B-12) 1,000 MCG TABLET PO SCH (09:12)
[2019-06-23] MEDS: MULTIVITAMIN TABLET PO SCH (09:12)
[2019-06-23] MEDS: RISPERIDONE 0.25 MG TABLET PO SCH ×2 (09:13→18:21)
[2019-06-23] MEDS: DOCUSATE SODIUM 100 MG CAPSULE PO SCH ×2 (09:13→18:21)
[2019-06-23] MEDS: FINASTERIDE 5 MG TABLET PO SCH (09:13)
[2019-06-23] MEDS: FERROUS SULFATE 325 MG TABLET PO SCH ×2 (09:13→18:21)
[2019-06-23] MEDS: FAMOTIDINE 20 MG TABLET PO SCH ×2 (09:13→23:14)
[2019-06-23] MEDS: METOPROLOL TARTRATE 50 MG TABLET PO SCH ×2 (09:13→23:12)
[2019-06-23] MEDS: UMECLIDINIUM BROMIDE 62.5 MCG/DOSE IH SCH (09:14)
[2019-06-23] MEDS ORDERED: ASPIRIN 81 MG TABLET, CHEWABLE PO SCH (10:00)
[2019-06-23] MEDS ORDERED: (PENDING PHARMACY ID) (Tiotropium Bromide [Spiriva Handihaler 5 Cap/Kit (18 Mcg/Cap)] 1 PU IH SCH (10:00)
--- NOTE | 2019-06-23 11:36 | PDOC PROGRESS REPORT ---
Subjective Progress Note for:: 06/23/19 Subjective:: RAMESH GUERRERO is a 83 year old male with a past medical history of dementia, CAD and diabetes mellitus type 2 who was brought in from [facility] due to being unsteady and fall at the [facility]. Patient was recently admitted and treated for H CAP. He was discharged yesterday on antibiotics. Son reports that he was still more confused than his baseline. Reportedly, he was unsteady on his feet earlier today at the [facility] and fell. In the ER, trauma work-up was unremarkable. Chest x-ray shows worsening of right lower lobe opacity and possibly increasing congestion compared to his previous x-ray. Son denies prior history of congestive heart failure. 06/22/2019. No acute events overnight. Patient comfortably sitting in bed no apparent distress. Denies any fever, chills, nausea, vomiting, diarrhea, constipation or any urinary symptoms. Alert and oriented x2, cooperative with physical examination. P.o. tolerant and having normal bladder and bladder movement. 06/22/2019. No acute events overnight. Patient comfortably sitting in bed no apparent distress. Denies any fever, chills, nausea, vomiting, diarrhea, constipation or any urinary symptoms. Alert and oriented x2, cooperative with physical examination. Reason For Visit: WORSENING PNEUMONIA VS PULMONARY EDEMA Physical Exam Vital Signs: Temp Pulse Resp BP Pulse Ox 99.0 F 69 21 H 117/44 L 95 06/23/19 08:01 06/23/19 08:01 06/23/19 08:01 06/23/19 08:01 06/23/19 08:01 Intake & Output 06/22/19 06/23/19 06/24/19 06:59 06:59 06:59 Intake Total 340 486 Output Total 1575 1700 Balance -1235 -1214 Weight 66.2 kg 66.3 kg General appearance: PRESENT: no acute distress, well-developed, well-nourished Head exam: PRESENT: atraumatic, normocephalic Respiratory exam: PRESENT: clear to auscultation amarilis. ABSENT: rales, rhonchi, wheezes Cardiovascular exam: PRESENT: RRR. ABSENT: diastolic murmur, rubs, systolic murmur GI/Abdominal exam: PRESENT: normal bowel sounds, soft. ABSENT: distended, guarding, mass, organolmegaly, rebound, tenderness Neurological exam: PRESENT: alert, awake, oriented to person, CN II-XII grossly intact. ABSENT: motor sensory deficit Results Laboratory Results: 06/21/19 04:21 06/21/19 04:21 06/19/19 14:36 NT-Pro-B Natriuret Pep 1740 H Impressions: Cervical Spine CT 06/19/19 00:00 IMPRESSION: CHRONIC DEGENERATIVE CHANGES. NO ACUTE FINDINGS. Chest CT 06/19/19 00:00 IMPRESSION: Small bilateral pleural effusions, left greater than right. Mild interstitial thickening with scattered ground-glass opacities. More confluent airspace opacities are present in both lower lobes and inferior lingula and right middle lobe. Infection should be excluded clinically, asymmetric edema may also have this appearance. Head CT 06/19/19 00:00 IMPRESSION: CHRONIC CHANGES OF ATROPHY AND MICROVASCULAR ISCHEMIA. NO ACUTE PROCESS. EVIDENCE OF ACUTE STROKE: NO. Chest X-Ray 06/19/19 11:51 IMPRESSION: Congestive heart failure interstitial pulmonary edema. Alveolar pulmonary edema versus superimposed pneumonia. Worse than previous. Wrist X-Ray 06/19/19 11:53 IMPRESSION: Degenerative changes. No acute fracture. 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 Degenerative changes in the joint. Facial Bones CT 06/19/19 11:55 IMPRESSION: NO ACUTE FINDINGS. Modified Barium Swallow 06/21/19 00:00 IMPRESSION: LARYNGEAL PENETRATION AND ASPIRATION ABOVE. PLEASE SEE SPEECH PATHOLOGIST REPORT FOR OTHER FINDINGS AND RECOMMENDATIONS. Assessment and Plan - Diagnosis (1) Acute encephalopathy Is this a current diagnosis for this admission?: Yes Plan: Acute metabolic encephalopathy. Improving. Likely related to ongoing pneumonia in a dementia patient. (2) Coronary artery disease Qualifiers: Is this a current diagnosis for this admission?: Yes Plan: Denies any anginal symptoms. Restart home meds. (3) Dementia Is this a current diagnosis for this admission?: Yes Plan: Continue supportive measures. Fall precautions. (4) Dysphagia Is this a current diagnosis for this admission?: Yes Plan: MBS positive for laryngeal aspiration. Speech therapy on board. Recommendations noted. (5) Pneumonia Qualifiers: Pneumonia type: due to unspecified organism Laterality: bilateral Is this a current diagnosis for this admission?: Yes Plan: Chest CT shows multifocal pneumonia. Sputum culture ordered. Continue levofloxacin for now. (6) Pulmonary edema Is this a current diagnosis for this admission?: Yes Plan: BNP came back elevated. 06/21: Echo showed normal EF with grade 2 DD. Discontinue IV Lasix. CXR findings is likely from multifocal pneumonia rather than pulmonary edema.
[2019-06-23] MEDS: TAMSULOSIN HCL 0.4 MG CAP.SR.24H PO SCH (18:21)
[2019-06-23] MEDS: MIRTAZAPINE 15 MG TABLET PO SCH (23:11)
[2019-06-23] MEDS: LEVOFLOXACIN 500 MG/D5W RTU 500 MG/100 ML RTUPB IV SCH (23:13)
[2019-06-24] MEDS: HEPARIN SOD (PORCINE) 5,000 UNIT/ML 1 ML VIAL SUBCUT SCH ×3 (06:29→21:25)
[2019-06-24] MEDS: CYANOCOBALAMIN (VITAMIN B-12) 1,000 MCG TABLET PO SCH (09:51)
[2019-06-24] MEDS: UMECLIDINIUM BROMIDE 62.5 MCG/DOSE IH SCH (09:51)
[2019-06-24] MEDS: FERROUS SULFATE 325 MG TABLET PO SCH ×2 (09:51→18:08)
[2019-06-24] MEDS: ASPIRIN 81 MG TABLET, CHEWABLE PO SCH (09:51)
[2019-06-24] MEDS: FINASTERIDE 5 MG TABLET PO SCH (09:51)
[2019-06-24] MEDS: RISPERIDONE 0.25 MG TABLET PO SCH ×2 (09:51→18:08)
[2019-06-24] MEDS: MULTIVITAMIN TABLET PO SCH (09:51)
[2019-06-24] MEDS: METOPROLOL TARTRATE 50 MG TABLET PO SCH ×2 (09:51→21:24)
[2019-06-24] MEDS: FAMOTIDINE 20 MG TABLET PO SCH ×2 (09:51→21:25)
[2019-06-24] MEDS: DOCUSATE SODIUM 100 MG CAPSULE PO SCH ×2 (09:51→18:08)
[2019-06-24 10:57] LABS: ABSOLUTE EOSINOPHILS # (AUTO) 0.1 10^3/uL (0.0-0.6); ABSOLUTE LYMPHOCYTES (AUTO) 0.6 10^3/uL (0.5-4.7); ABSOLUTE MONOCYTES (AUTO) 0.6 10^3/uL (0.1-1.4); ABSOLUTE NEUT (AUTO) 2.9 10^3/uL (1.7-8.2); BASOPHILS % (AUTO) 0.8 % (0-2); EOSINOPHILS % (AUTO) 2.7 % (0-6); HEMATOCRIT 32.3 % (37.9-51.0); HEMOGLOBIN 11.3 g/dL (13.5-17.0); MEAN CORPUSCULAR HEMOGLOBIN 33.1 pg (27.0-33.4); MEAN CORPUSCULAR HGB CONC 34.8 g/dL (32.0-36.0); MEAN CORPUSCULAR VOLUME 95 fl (80-97); MONOCYTES % (AUTO) 13.9 % (3-13); PLATELET COUNT 242 10^3/uL (150-450); RED CELL DISTRIBUTION WIDTH 13.9 % (11.5-14.0); SEGMENTED NEUTROPHILS % (AUTO) 68.6 % (42-78); TOTAL CELLS COUNTED % (AUTO) 100 %; WHITE BLOOD COUNT 4.3 10^3/uL (4.0-10.5)
[2019-06-24 11:01] LABS: ALBUMIN 3.1 g/dL (3.5-5.0); ALKALINE PHOSPHATASE 134 U/L (38-126); ANION GAP 13 (5-19); ASPARTATE AMINO TRANSFERASE 37 U/L (17-59); BILIRUBIN,DIRECT 0.1 mg/dL (0.0-0.4); BILIRUBIN,TOTAL 0.5 mg/dL (0.2-1.3); BLOOD UREA NITROGEN 17 mg/dL (7-20); CALCIUM 8.6 mg/dL (8.4-10.2); CARBON DIOXIDE 24 mmol/L (22-30); CHLORIDE 98 mmol/L (98-107); GLUCOSE 94 mg/dL (75-110); POTASSIUM 4.1 mmol/L (3.6-5.0); TOTAL PROTEIN 6.1 g/dL (6.3-8.2)
--- NOTE | 2019-06-24 14:04 | RADIOLOGY REPORT (SQ) ---
EXAM DESCRIPTION: CT HEAD WITHOUT COMPLETED DATE/TIME: 06/24/2019 1:42 pm REASON FOR STUDY: AMS J12.9 VIRAL PNEUMONIA, UNSPECIFIED COMPARISON: 06/19/2019 TECHNIQUE: Axial images acquired through the brain without intravenous contrast. Images reviewed wi th bone, brain and subdural windows. Additional sagittal and coronal reconstructions were generated. Images stored on PACS. All CT scanners at this facility use dose modulation, iterative reconstruction, and/or weight based d osing when appropriate to reduce radiation dose to as low as reasonably achievable (ALARA). [facility]: Dose Right [facility]: CareDose [facility]: Dose Right [facility]: Teradose 4D [facility]: Smart The Combine RADIATION DOSE: CT Rad equipment meets quality standard of care and radiation dose reduction techniq ues were employed. CTDIvol: 48.7 mGy. DLP: 980 mGy-cm. mGy. LIMITATIONS: None. FINDINGS: VENTRICLES: Normal size and contour. Incidental note of cavum septum pellucidum et vergae variant. CEREBRUM: No masses. No hemorrhage. No midline shift. No evidence for acute infarction. Extensive areas of low density in the white matter most likely chronic small vessel ischemic changes. CEREBELLUM: No masses. No hemorrhage. No alteration of density. No evidence for acute infarction. EXTRAAXIAL SPACES: No fluid collections. No masses. ORBITS AND GLOBE: No intra- or extraconal masses. Normal contour of globe without masses. CALVARIUM: No fracture. PARANASAL SINUSES: No fluid or mucosal thickening. SOFT TISSUES: No mass or hematoma. OTHER: No other significant finding. IMPRESSION: No acute intracranial pathology. Small vessel white matter disease. EVIDENCE OF ACUTE STROKE: NO. COMMENT: Quality ID # [id number]: Final reports with documentation of one or more dose reduction techniques (e.g., Automated exposure control, adjustment of the mA and/or kV according to patient size, use of iterative reconstruction technique) TECHNICAL DOCUMENTATION: JOB ID: [id number] [employer]- All Rights Reserved Reading location - IP/workstation name: [email or web address]
--- NOTE | 2019-06-24 14:57 | PDOC PROGRESS REPORT ---
Subjective Progress Note for:: 06/24/19 Subjective:: RAMESH GUERRERO is a 83 year old male with a past medical history of dementia, CAD and diabetes mellitus type 2 who was brought in from [facility] due to being unsteady and fall at the [facility]. Patient was recently admitted and treated for H CAP. He was discharged yesterday on antibiotics. Son reports that he was still more confused than his baseline. Reportedly, he was unsteady on his feet earlier today at the [facility] and fell. In the ER, trauma work-up was unremarkable. Chest x-ray shows worsening of right lower lobe opacity and possibly increasing congestion compared to his previous x-ray. Son denies prior history of congestive heart failure. 06/22/2019. No acute events overnight. Patient comfortably sitting in bed no apparent distress. Denies any fever, chills, nausea, vomiting, diarrhea, constipation or any urinary symptoms. Alert and oriented x2, cooperative with physical examination. P.o. tolerant and having normal bladder and bladder movement. 06/23/2019. No acute events overnight. Patient comfortably sitting in bed no apparent distress. Denies any fever, chills, nausea, vomiting, diarrhea, constipation or any urinary symptoms. Alert and oriented x2, cooperative with physical examination. 06/24/2019. No acute events overnight. Patient appeared to be somnolent this morning, easily arousable but falling asleep, repeat CBC CMP was unremarkable and a head CT was negative for any acute extra, visited patient several times today as I was concerned for his somnolence, on my last visit around 3 PM patient was back to baseline, resting comfortably in bed, in no apparent distress, alert and oriented x2, denies any fever, chills, nausea, vomiting, diarrhea, constipation or any urinary symptoms. Reason For Visit: WORSENING PNEUMONIA VS PULMONARY EDEMA Physical Exam Vital Signs: Temp Pulse Resp BP Pulse Ox 97.3 F 64 21 H 121/52 L 97 06/24/19 12:00 06/24/19 12:00 06/24/19 12:00 06/24/19 12:00 06/24/19 12:00 Intake & Output 06/23/19 06/24/19 06/25/19 06:59 06:59 06:59 Intake Total 486 840 100 Output Total 1700 1775 Balance -1214 -935 100 Weight 66.3 kg 65.5 kg General appearance: PRESENT: no acute distress, well-developed, well-nourished Head exam: PRESENT: atraumatic, normocephalic Respiratory exam: PRESENT: clear to auscultation amarilis. ABSENT: rales, rhonchi, wheezes Cardiovascular exam: PRESENT: RRR. ABSENT: diastolic murmur, rubs, systolic murmur GI/Abdominal exam: PRESENT: normal bowel sounds, soft. ABSENT: distended, guarding, mass, organolmegaly, rebound, tenderness Extremities exam: PRESENT: full ROM. ABSENT: calf tenderness, clubbing, pedal edema Neurological exam: PRESENT: alert, awake, oriented to person, CN II-XII grossly intact. ABSENT: motor sensory deficit Skin exam: PRESENT: dry, intact, warm. ABSENT: cyanosis, rash Results Laboratory Results: 06/24/19 10:30 06/24/19 10:30 06/24/19 06/24/19 10:30 10:30 WBC 4.3 RBC 3.40 L Hgb 11.3 L Hct 32.3 L MCV 95 MCH 33.1 MCHC 34.8 RDW 13.9 Plt Count 242 Seg Neutrophils % 68.6 Sodium 135.0 L Potassium 4.1 Chloride 98 Carbon Dioxide 24 Anion Gap 13 BUN 17 Creatinine 0.99 Est GFR ( Amer) > 60 Glucose 94 Calcium 8.6 Magnesium 2.5 H Total Bilirubin 0.5 AST 37 Alkaline Phosphatase 134 H Total Protein 6.1 L Albumin 3.1 L 06/19/19 14:36 NT-Pro-B Natriuret Pep 1740 H Impressions: Cervical Spine CT 06/19/19 00:00 IMPRESSION: CHRONIC DEGENERATIVE CHANGES. NO ACUTE FINDINGS. Chest CT 06/19/19 00:00 IMPRESSION: Small bilateral pleural effusions, left greater than right. Mild interstitial thickening with scattered ground-glass opacities. More confluent airspace opacities are present in both lower lobes and inferior lingula and right middle lobe. Infection should be excluded clinically, asymmetric edema may also have this appearance. Chest X-Ray 06/19/19 11:51 IMPRESSION: Congestive heart failure interstitial pulmonary edema. Alveolar pulmonary edema versus superimposed pneumonia. Worse than previous. Wrist X-Ray 06/19/19 11:53 IMPRESSION: Degenerative changes. No acute fracture. 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 Degenerative changes in the joint. Facial Bones CT 06/19/19 11:55 IMPRESSION: NO ACUTE FINDINGS. Modified Barium Swallow 06/21/19 00:00 IMPRESSION: LARYNGEAL PENETRATION AND ASPIRATION ABOVE. PLEASE SEE SPEECH PATHOLOGIST REPORT FOR OTHER FINDINGS AND RECOMMENDATIONS. Head CT 06/24/19 11:40 IMPRESSION: No acute intracranial pathology. Small vessel white matter disease. EVIDENCE OF ACUTE STROKE: NO. Assessment and Plan - Diagnosis (1) Acute encephalopathy Is this a current diagnosis for this admission?: Yes Plan: Acute metabolic encephalopathy. Resolved. Back to baseline. Likely related to ongoing pneumonia in a dementia patient. (2) Coronary artery disease Qualifiers: Is this a current diagnosis for this admission?: Yes Plan: Denies any anginal symptoms. Restart home meds. (3) Dementia Is this a current diagnosis for this admission?: Yes Plan: Continue supportive measures. Fall precautions. (4) Dysphagia Qualifiers: Dysphagia type: oropharyngeal phase Qualified Code(s): R13.12 - Dysphagia, oropharyngeal phase Is this a current diagnosis for this admission?: Yes Plan: MBS positive for laryngeal aspiration. Speech therapy on board. Recommendations noted. (5) Pneumonia Qualifiers: Pneumonia type: due to unspecified organism Laterality: bilateral Is this a current diagnosis for this admission?: Yes Plan: Chest CT shows multifocal pneumonia. Sputum culture ordered. Continue levofloxacin for now. (6) Pulmonary edema Is this a current diagnosis for this admission?: Yes Plan: Resolved. Benign chest examination. proBNP elevated on admission compared to last visit. 06/21: Echo showed normal EF with grade 2 DD. CXR findings is likely from multifocal pneumonia rather than pulmonary edema.
[2019-06-24] MEDS: TAMSULOSIN HCL 0.4 MG CAP.SR.24H PO SCH (18:08)
[2019-06-24] MEDS: ACETAMINOPHEN 325 MG TABLET PO PRN (19:41)
[2019-06-24] MEDS: MIRTAZAPINE 15 MG TABLET PO SCH (21:24)
[2019-06-24] MEDS: LEVOFLOXACIN 500 MG/D5W RTU 500 MG/100 ML RTUPB IV SCH (21:25)
[2019-06-25] MEDS: HEPARIN SOD (PORCINE) 5,000 UNIT/ML 1 ML VIAL SUBCUT SCH ×3 (05:12→21:17)
[2019-06-25] MEDS ORDERED: VANCOMYCIN HCL 0 MG in DEXTROSE 5%-WATER 250 ML IV NR (07:30)
[2019-06-25] MEDS ORDERED: VANCOMYCIN HCL 1,000 MG in DEXTROSE 5%-WATER 250 ML IV SCH (09:00)
[2019-06-25 09:27] LABS: ABSOLUTE EOSINOPHILS # (AUTO) 0.1 10^3/uL (0.0-0.6); ABSOLUTE LYMPHOCYTES (AUTO) 0.6 10^3/uL (0.5-4.7); ABSOLUTE MONOCYTES (AUTO) 0.6 10^3/uL (0.1-1.4); ABSOLUTE NEUT (AUTO) 3.5 10^3/uL (1.7-8.2); BASOPHILS % (AUTO) 0.7 % (0-2); EOSINOPHILS % (AUTO) 1.2 % (0-6); HEMATOCRIT 32.4 % (37.9-51.0); HEMOGLOBIN 11.3 g/dL (13.5-17.0); MEAN CORPUSCULAR HEMOGLOBIN 33.2 pg (27.0-33.4); MEAN CORPUSCULAR HGB CONC 34.9 g/dL (32.0-36.0); MEAN CORPUSCULAR VOLUME 95 fl (80-97); MONOCYTES % (AUTO) 12.7 % (3-13); PLATELET COUNT 280 10^3/uL (150-450); RED CELL DISTRIBUTION WIDTH 13.9 % (11.5-14.0); SEGMENTED NEUTROPHILS % (AUTO) 72.4 % (42-78); TOTAL CELLS COUNTED % (AUTO) 100 %; WHITE BLOOD COUNT 4.9 10^3/uL (4.0-10.5)
[2019-06-25] MEDS: DOCUSATE SODIUM 100 MG CAPSULE PO SCH ×2 (09:43→17:44)
[2019-06-25] MEDS: FAMOTIDINE 20 MG TABLET PO SCH ×2 (09:43→21:17)
[2019-06-25] MEDS: CYANOCOBALAMIN (VITAMIN B-12) 1,000 MCG TABLET PO SCH (09:43)
[2019-06-25] MEDS: RISPERIDONE 0.25 MG TABLET PO SCH ×2 (09:44→17:45)
[2019-06-25] MEDS: ASPIRIN 81 MG TABLET, CHEWABLE PO SCH (09:44)
[2019-06-25] MEDS: FERROUS SULFATE 325 MG TABLET PO SCH ×2 (09:44→17:44)
[2019-06-25] MEDS: UMECLIDINIUM BROMIDE 62.5 MCG/DOSE IH SCH (09:44)
[2019-06-25] MEDS: MULTIVITAMIN TABLET PO SCH (09:44)
[2019-06-25] MEDS: FINASTERIDE 5 MG TABLET PO SCH (09:44)
[2019-06-25] MEDS: METOPROLOL TARTRATE 50 MG TABLET PO SCH ×2 (09:44→21:12)
[2019-06-25 09:54] LABS: ALBUMIN 3.2 g/dL (3.5-5.0); ALKALINE PHOSPHATASE 153 U/L (38-126); ANION GAP 14 (5-19); ASPARTATE AMINO TRANSFERASE 37 U/L (17-59); BILIRUBIN,DIRECT 0.3 mg/dL (0.0-0.4); BILIRUBIN,TOTAL 0.6 mg/dL (0.2-1.3); BLOOD UREA NITROGEN 21 mg/dL (7-20); CALCIUM 8.8 mg/dL (8.4-10.2); CARBON DIOXIDE 21 mmol/L (22-30); CHLORIDE 100 mmol/L (98-107); GLUCOSE 87 mg/dL (75-110); POTASSIUM 4.1 mmol/L (3.6-5.0); TOTAL PROTEIN 6.3 g/dL (6.3-8.2)
--- NOTE | 2019-06-25 10:19 | PDOC PROGRESS REPORT ---
Subjective Progress Note for:: 06/25/19 Subjective:: RAMESH GUERRERO is a 83 year old male with a past medical history of dementia, CAD and diabetes mellitus type 2 who was brought in from [facility] due to being unsteady and fall at the [facility]. Patient was recently admitted and treated for H CAP. He was discharged yesterday on antibiotics. Son reports that he was still more confused than his baseline. Reportedly, he was unsteady on his feet earlier today at the [facility] and fell. In the ER, trauma work-up was unremarkable. Chest x-ray shows worsening of right lower lobe opacity and possibly increasing congestion compared to his previous x-ray. Son denies prior history of congestive heart failure. 06/22/2019. No acute events overnight. Patient comfortably sitting in bed no apparent distress. Denies any fever, chills, nausea, vomiting, diarrhea, constipation or any urinary symptoms. Alert and oriented x2, cooperative with physical examination. P.o. tolerant and having normal bladder and bladder movement. 06/23/2019. No acute events overnight. Patient comfortably sitting in bed no apparent distress. Denies any fever, chills, nausea, vomiting, diarrhea, constipation or any urinary symptoms. Alert and oriented x2, cooperative with physical examination. 06/24/2019. No acute events overnight. Patient appeared to be somnolent this morning, easily arousable but falling asleep, repeat CBC CMP was unremarkable and a head CT was negative for any acute extra, visited patient several times today as I was concerned for his somnolence, on my last visit around 3 PM patient was back to baseline, resting comfortably in bed, in no apparent distress, alert and oriented x2, denies any fever, chills, nausea, vomiting, diarrhea, constipation or any urinary symptoms. 06/25/2019. No acute events overnight. Apparently as per primary nurse patient awake all night and usually sleeps early mornings and during the day. On my encounter patient is sleeping easily arousable, alert, cooperative with physical examination, in no apparent distress. Denies any fever, chills, nausea, vomiting, diarrhea. Reason For Visit: WORSENING PNEUMONIA VS PULMONARY EDEMA Physical Exam Vital Signs: Temp Pulse Resp BP Pulse Ox 97.6 F 72 22 H 116/56 L 94 06/25/19 08:00 06/25/19 08:00 06/25/19 08:00 06/25/19 08:00 06/25/19 08:00 Intake & Output 06/24/19 06/25/19 06/26/19 06:59 06:59 06:59 Intake Total 840 200 Output Total 1775 500 Balance -935 -300 Weight 65.5 kg 65.5 kg General appearance: PRESENT: no acute distress, well-developed, well-nourished Head exam: PRESENT: atraumatic, normocephalic Respiratory exam: PRESENT: clear to auscultation amarilis. ABSENT: rales, rhonchi, wheezes Cardiovascular exam: PRESENT: RRR. ABSENT: diastolic murmur, rubs, systolic murmur Extremities exam: PRESENT: full ROM. ABSENT: calf tenderness, clubbing, pedal edema Neurological exam: PRESENT: alert, awake, oriented to person, CN II-XII grossly intact. ABSENT: motor sensory deficit Results Laboratory Results: 06/25/19 08:50 06/25/19 08:50 06/24/19 06/24/19 06/25/19 10:30 10:30 08:50 WBC 4.3 4.9 RBC 3.40 L 3.40 L Hgb 11.3 L 11.3 L Hct 32.3 L 32.4 L MCV 95 95 MCH 33.1 33.2 MCHC 34.8 34.9 RDW 13.9 13.9 Plt Count 242 280 Seg Neutrophils % 68.6 72.4 Sodium 135.0 L Potassium 4.1 Chloride 98 Carbon Dioxide 24 Anion Gap 13 BUN 17 Creatinine 0.99 Est GFR ( Amer) > 60 Glucose 94 Calcium 8.6 Magnesium 2.5 H Total Bilirubin 0.5 AST 37 Alkaline Phosphatase 134 H Total Protein 6.1 L Albumin 3.1 L 06/25/19 08:50 WBC RBC Hgb Hct MCV MCH MCHC RDW Plt Count Seg Neutrophils % Sodium 134.8 L Potassium 4.1 Chloride 100 Carbon Dioxide 21 L Anion Gap 14 BUN 21 H Creatinine 1.00 Est GFR ( Amer) > 60 Glucose 87 Calcium 8.8 Magnesium Total Bilirubin 0.6 AST 37 Alkaline Phosphatase 153 H Total Protein 6.3 Albumin 3.2 L 06/19/19 14:36 NT-Pro-B Natriuret Pep 1740 H Impressions: Cervical Spine CT 06/19/19 00:00 IMPRESSION: CHRONIC DEGENERATIVE CHANGES. NO ACUTE FINDINGS. Chest CT 06/19/19 00:00 IMPRESSION: Small bilateral pleural effusions, left greater than right. Mild interstitial thickening with scattered ground-glass opacities. More confluent airspace opacities are present in both lower lobes and inferior lingula and right middle lobe. Infection should be excluded clinically, asymmetric edema may also have this appearance. Chest X-Ray 06/19/19 11:51 IMPRESSION: Congestive heart failure interstitial pulmonary edema. Alveolar pulmonary edema versus superimposed pneumonia. Worse than previous. Wrist X-Ray 06/19/19 11:53 IMPRESSION: Degenerative changes. No acute fracture. 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 Degenerative changes in the joint. Facial Bones CT 06/19/19 11:55 IMPRESSION: NO ACUTE FINDINGS. Modified Barium Swallow 06/21/19 00:00 IMPRESSION: LARYNGEAL PENETRATION AND ASPIRATION ABOVE. PLEASE SEE SPEECH PATHOLOGIST REPORT FOR OTHER FINDINGS AND RECOMMENDATIONS. Head CT 06/24/19 11:40 IMPRESSION: No acute intracranial pathology. Small vessel white matter disease. EVIDENCE OF ACUTE STROKE: NO. Assessment and Plan - Diagnosis (1) Pneumonia Qualifiers: Pneumonia type: due to unspecified organism Laterality: bilateral Is this a current diagnosis for this admission?: Yes Plan: Patient febrile overnight. WBC WNL. Chest CT on admission showed multifocal pneumonia. Concern for health care associated pneumonia as patient is a resident of senior living. Patient has been refluxing since admission. Running fever. Will start on v ancomycin. Obtain a sputum blood culture and repeat chest x-ray. (2) Coronary artery disease Qualifiers: Is this a current diagnosis for this admission?: Yes Plan: Denies any anginal symptoms. Restart home meds. (3) Acute encephalopathy Is this a current diagnosis for this admission?: Yes Plan: Acute metabolic encephalopathy. Resolved. Back to baseline. Likely related to ongoing pneumonia in a dementia patient. (4) Dementia Is this a current diagnosis for this admission?: Yes Plan: Continue supportive measures. Fall precautions. (5) Dysphagia Qualifiers: Dysphagia type: oropharyngeal phase Qualified Code(s): R13.12 - Dysphagia, oropharyngeal phase Is this a current diagnosis for this admission?: Yes Plan: MBS positive for laryngeal aspiration. Speech therapy on board. Recommendations noted. (6) Pulmonary edema Is this a current diagnosis for this admission?: Yes Plan: Resolved. Benign chest examination. proBNP elevated on admission compared to last visit. 06/21: Echo showed normal EF with grade 2 DD. CXR findings is likely from multifocal pneumonia rather than pulmonary edema.
[2019-06-25] MEDS: VANCOMYCIN HCL 500 MG in DEXTROSE 5%-WATER 100 ML IV SCH ×2 (10:51→22:29)
--- NOTE | 2019-06-25 11:12 | RADIOLOGY REPORT (SQ) ---
EXAM DESCRIPTION: CHEST SINGLE VIEW COMPLETED DATE/TIME: 06/25/2019 10:56 am REASON FOR STUDY: fever, f/u COMPARISON: AP and lateral views of the chest from 06/19/2019. EXAM PARAMETERS: NUMBER OF VIEWS: One view. TECHNIQUE: An AP view of the chest was obtained. RADIATION DOSE: NA LIMITATIONS: None. FINDINGS: LUNGS AND PLEURA: Patchy bibasilar parenchymal opacities that are improved compared to the radiograph from 06/19/2019. There is no pneumothorax. MEDIASTINUM AND HILAR STRUCTURES: No mediastinal or hilar contour abnormality. HEART AND VASCULAR STRUCTURES: Stable cardiac silhouette. BONES: No acute findings. HARDWARE: Median sternotomy hardware. OTHER: No other finding. IMPRESSION: Improved patchy bibasilar parenchymal opacities. TECHNICAL DOCUMENTATION: JOB ID: [id number] [employer]- All Rights Reserved Reading location - IP/workstation name: [email or web address]
[2019-06-25] MEDS: TAMSULOSIN HCL 0.4 MG CAP.SR.24H PO SCH (17:44)
[2019-06-25] MEDS: LEVOFLOXACIN 500 MG/D5W RTU 500 MG/100 ML RTUPB IV SCH (21:17)
[2019-06-25] MEDS: MIRTAZAPINE 15 MG TABLET PO SCH (21:17)
[2019-06-26] MEDS: HEPARIN SOD (PORCINE) 5,000 UNIT/ML 1 ML VIAL SUBCUT SCH ×3 (05:17→21:20)
[2019-06-26] MEDS: METOPROLOL TARTRATE 50 MG TABLET PO SCH ×2 (09:22→21:16)
[2019-06-26] MEDS: FAMOTIDINE 20 MG TABLET PO SCH ×2 (09:22→21:20)
[2019-06-26] MEDS: CYANOCOBALAMIN (VITAMIN B-12) 1,000 MCG TABLET PO SCH (09:22)
[2019-06-26] MEDS: ASPIRIN 81 MG TABLET, CHEWABLE PO SCH (09:22)
[2019-06-26] MEDS: FERROUS SULFATE 325 MG TABLET PO SCH ×2 (09:22→17:27)
[2019-06-26] MEDS: MULTIVITAMIN TABLET PO SCH (09:22)
[2019-06-26] MEDS: FINASTERIDE 5 MG TABLET PO SCH (09:22)
[2019-06-26] MEDS: RISPERIDONE 0.25 MG TABLET PO SCH ×2 (09:22→17:27)
[2019-06-26] MEDS: DOCUSATE SODIUM 100 MG CAPSULE PO SCH ×2 (09:22→17:27)
[2019-06-26] MEDS: UMECLIDINIUM BROMIDE 62.5 MCG/DOSE IH SCH (09:23)
[2019-06-26] MEDS: VANCOMYCIN HCL 500 MG in DEXTROSE 5%-WATER 100 ML IV SCH ×2 (09:23→22:30)
--- NOTE | 2019-06-26 10:53 | PDOC PROGRESS REPORT ---
Subjective Progress Note for:: 06/26/19 Subjective:: RAMESH GUERRERO is a 83 year old male with a past medical history of dementia, CAD and diabetes mellitus type 2 who was brought in from [facility] due to being unsteady and fall at the [facility]. Patient was recently admitted and treated for H CAP. He was discharged yesterday on antibiotics. Son reports that he was still more confused than his baseline. Reportedly, he was unsteady on his feet earlier today at the [facility] and fell. In the ER, trauma work-up was unremarkable. Chest x-ray shows worsening of right lower lobe opacity and possibly increasing congestion compared to his previous x-ray. Son denies prior history of congestive heart failure. 06/22/2019. No acute events overnight. Patient comfortably sitting in bed no apparent distress. Denies any fever, chills, nausea, vomiting, diarrhea, constipation or any urinary symptoms. Alert and oriented x2, cooperative with physical examination. P.o. tolerant and having normal bladder and bladder movement. 06/23/2019. No acute events overnight. Patient comfortably sitting in bed no apparent distress. Denies any fever, chills, nausea, vomiting, diarrhea, constipation or any urinary symptoms. Alert and oriented x2, cooperative with physical examination. 06/24/2019. No acute events overnight. Patient appeared to be somnolent this morning, easily arousable but falling asleep, repeat CBC CMP was unremarkable and a head CT was negative for any acute extra, visited patient several times today as I was concerned for his somnolence, on my last visit around 3 PM patient was back to baseline, resting comfortably in bed, in no apparent distress, alert and oriented x2, denies any fever, chills, nausea, vomiting, diarrhea, constipation or any urinary symptoms. 06/25/2019. No acute events overnight. Apparently as per primary nurse patient awake all night and usually sleeps early mornings and during the day. On my encounter patient is sleeping easily arousable, alert, cooperative with physical examination, in no apparent distress. Denies any fever, chills, nausea, vomiting, diarrhea. 06/26/2019. No acute events overnight. Pending placement. Reason For Visit: WORSENING PNEUMONIA VS PULMONARY EDEMA Physical Exam Vital Signs: Temp Pulse Resp BP Pulse Ox 98.1 F 72 24 H 108/55 L 92 06/26/19 07:45 06/26/19 07:45 06/26/19 07:45 06/26/19 07:45 06/26/19 07:45 Intake & Output 06/25/19 06/26/19 06/27/19 06:59 06:59 06:59 Intake Total 200 690 Output Total 500 800 Balance -300 -110 Weight 65.5 kg 61.9 kg General appearance: PRESENT: no acute distress, well-developed, well-nourished Head exam: PRESENT: atraumatic, normocephalic Respiratory exam: PRESENT: clear to auscultation amarilis. ABSENT: rales, rhonchi, wheezes Cardiovascular exam: PRESENT: RRR. ABSENT: diastolic murmur, rubs, systolic murmur GI/Abdominal exam: PRESENT: normal bowel sounds, soft. ABSENT: distended, guarding, mass, organolmegaly, rebound, tenderness Neurological exam: PRESENT: alert, awake, oriented to person, CN II-XII grossly intact. ABSENT: motor sensory deficit Results Laboratory Results: 06/25/19 08:50 06/25/19 08:50 06/19/19 14:36 NT-Pro-B Natriuret Pep 1740 H Impressions: Cervical Spine CT 06/19/19 00:00 IMPRESSION: CHRONIC DEGENERATIVE CHANGES. NO ACUTE FINDINGS. Chest CT 06/19/19 00:00 IMPRESSION: Small bilateral pleural effusions, left greater than right. Mild interstitial thickening with scattered ground-glass opacities. More confluent airspace opacities are present in both lower lobes and inferior lingula and right middle lobe. Infection should be excluded clinically, asymmetric edema may also have this appearance. Wrist X-Ray 06/19/19 11:53 IMPRESSION: Degenerative changes. No acute fracture. 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 Degenerative changes in the joint. Facial Bones CT 06/19/19 11:55 IMPRESSION: NO ACUTE FINDINGS. Modified Barium Swallow 06/21/19 00:00 IMPRESSION: LARYNGEAL PENETRATION AND ASPIRATION ABOVE. PLEASE SEE SPEECH PATHOLOGIST REPORT FOR OTHER FINDINGS AND RECOMMENDATIONS. Head CT 06/24/19 11:40 IMPRESSION: No acute intracranial pathology. Small vessel white matter disease. EVIDENCE OF ACUTE STROKE: NO. Chest X-Ray 06/25/19 00:00 IMPRESSION: Improved patchy bibasilar parenchymal opacities. Assessment and Plan - Diagnosis (1) Pneumonia Qualifiers: Pneumonia type: due to unspecified organism Laterality: bilateral Is this a current diagnosis for this admission?: Yes Plan: Patient febrile overnight. WBC WNL. Chest CT on admission showed multifocal pneumonia. Concern for health care associated pneumonia as patient is a resident of care home. Afebrile. BC WNL. Cultures negative so far. Repeat checks x-ray shows improvement of infiltrations. Continue empiric antibiotics. (2) Coronary artery disease Qualifiers: Is this a current diagnosis for this admission?: Yes Plan: Denies any anginal symptoms. Restart home meds. (3) Acute encephalopathy Is this a current diagnosis for this admission?: Yes Plan: Acute metabolic encephalopathy. Resolved. Back to baseline. Likely related to ongoing pneumonia in a dementia patient. (4) Dementia Is this a current diagnosis for this admission?: Yes Plan: Continue supportive measures. Fall precautions. (5) Dysphagia Qualifiers: Dysphagia type: oropharyngeal phase Qualified Code(s): R13.12 - Dysphagia, oropharyngeal phase Is this a current diagnosis for this admission?: Yes Plan: MBS positive for laryngeal aspiration. Speech therapy on board. Anjel mmendations noted. (6) Pulmonary edema Is this a current diagnosis for this admission?: Yes Plan: Resolved. Benign chest examination. proBNP elevated on admission compared to last visit. 06/21: Echo showed normal EF with grade 2 DD. CXR findings is likely from multifocal pneumonia rather than pulmonary edema.
[2019-06-26] MEDS: TAMSULOSIN HCL 0.4 MG CAP.SR.24H PO SCH (17:27)
[2019-06-26] MEDS: MIRTAZAPINE 15 MG TABLET PO SCH (21:20)
[2019-06-26] MEDS: LEVOFLOXACIN 500 MG/D5W RTU 500 MG/100 ML RTUPB IV SCH (21:20)
[2019-06-27] MEDS: HEPARIN SOD (PORCINE) 5,000 UNIT/ML 1 ML VIAL SUBCUT SCH ×3 (05:50→21:47)
[2019-06-27] MEDS: UMECLIDINIUM BROMIDE 62.5 MCG/DOSE IH SCH (09:23)
[2019-06-27] MEDS: DOCUSATE SODIUM 100 MG CAPSULE PO SCH ×2 (09:23→17:20)
[2019-06-27] MEDS: MULTIVITAMIN TABLET PO SCH (09:24)
[2019-06-27] MEDS: FINASTERIDE 5 MG TABLET PO SCH (09:24)
[2019-06-27] MEDS: METOPROLOL TARTRATE 50 MG TABLET PO SCH ×2 (09:24→21:45)
[2019-06-27] MEDS: FAMOTIDINE 20 MG TABLET PO SCH ×2 (09:24→21:45)
[2019-06-27] MEDS: ASPIRIN 81 MG TABLET, CHEWABLE PO SCH (09:24)
[2019-06-27] MEDS: FERROUS SULFATE 325 MG TABLET PO SCH ×2 (09:24→17:20)
[2019-06-27] MEDS: RISPERIDONE 0.25 MG TABLET PO SCH ×2 (09:24→17:20)
[2019-06-27] MEDS: CYANOCOBALAMIN (VITAMIN B-12) 1,000 MCG TABLET PO SCH (09:24)
[2019-06-27] MEDS: VANCOMYCIN HCL 1,000 MG in DEXTROSE 5%-WATER 250 ML IV SCH ×2 (09:32→21:46)
--- NOTE | 2019-06-27 15:03 | PDOC PROGRESS REPORT ---
Subjective Progress Note for:: 06/27/19 Subjective:: RAMESH GUERRERO is a 83 year old male with a past medical history of dementia, CAD and diabetes mellitus type 2 who was brought in from [facility] due to being unsteady and fall at the [facility]. Patient was recently admitted and treated for H CAP. He was discharged yesterday on antibiotics. Son reports that he was still more confused than his baseline. Reportedly, he was unsteady on his feet earlier today at the [facility] and fell. In the ER, trauma work-up was unremarkable. Chest x-ray shows worsening of right lower lobe opacity and possibly increasing congestion compared to his previous x-ray. Son denies prior history of congestive heart failure. 06/22/2019. No acute events overnight. Patient comfortably sitting in bed no apparent distress. Denies any fever, chills, nausea, vomiting, diarrhea, constipation or any urinary symptoms. Alert and oriented x2, cooperative with physical examination. P.o. tolerant and having normal bladder and bladder movement. 06/23/2019. No acute events overnight. Patient comfortably sitting in bed no apparent distress. Denies any fever, chills, nausea, vomiting, diarrhea, constipation or any urinary symptoms. Alert and oriented x2, cooperative with physical examination. 06/24/2019. No acute events overnight. Patient appeared to be somnolent this morning, easily arousable but falling asleep, repeat CBC CMP was unremarkable and a head CT was negative for any acute extra, visited patient several times today as I was concerned for his somnolence, on my last visit around 3 PM patient was back to baseline, resting comfortably in bed, in no apparent distress, alert and oriented x2, denies any fever, chills, nausea, vomiting, diarrhea, constipation or any urinary symptoms. 06/25/2019. No acute events overnight. Apparently as per primary nurse patient awake all night and usually sleeps early mornings and during the day. On my encounter patient is sleeping easily arousable, alert, cooperative with physical examination, in no apparent distress. Denies any fever, chills, nausea, vomiting, diarrhea. 06/26/2019. No acute events overnight. Pending placement. 06/27/2019. No acute events overnight. Afebrile. P.o. tolerant. Pending placement. Reason For Visit: WORSENING PNEUMONIA VS PULMONARY EDEMA Physical Exam Vital Signs: Temp Pulse Resp BP Pulse Ox 98.0 F 88 28 H 107/58 L 97 06/27/19 11:24 06/27/19 11:24 06/27/19 11:24 06/27/19 11:24 06/27/19 11:24 Intake & Output 06/26/19 06/27/19 06/28/19 06:59 06:59 06:59 Intake Total 690 830 600 Output Total 800 1075 400 Balance -110 -245 200 Weight 61.9 kg 62.8 kg General appearance: PRESENT: no acute distress, well-developed, well-nourished Neck exam: ABSENT: carotid bruit, JVD, lymphadenopathy, thyromegaly Respiratory exam: PRESENT: clear to auscultation amarilis. ABSENT: rales, rhonchi, wheezes Cardiovascular exam: PRESENT: RRR. ABSENT: diastolic murmur, rubs, systolic murmur GI/Abdominal exam: PRESENT: normal bowel sounds, soft. ABSENT: distended, guarding, mass, organolmegaly, rebound, tenderness Neurological exam: PRESENT: alert, awake, oriented to person, CN II-XII grossly intact. ABSENT: motor sensory deficit Results Laboratory Results: 06/25/19 08:50 06/26/19 21:27 06/26/19 21:27 Creatinine 0.92 Est GFR ( Amer) > 60 06/25/19 09:00 Blood Blood Culture (PCR) - Final Staphylococcus Species 06/19/19 14:36 NT-Pro-B Natriuret Pep 1740 H Impressions: Cervical Spine CT 06/19/19 00:00 IMPRESSION: CHRONIC DEGENERATIVE CHANGES. NO ACUTE FINDINGS. Chest CT 06/19/19 00:00 IMPRESSION: Small bilateral pleural effusions, left greater than right. Mild interstitial thickening with scattered ground-glass opacities. More confluent airspace opacities are present in both lower lobes and inferior lingula and right middle lobe. Infection should be excluded clinically, asymmetric edema may also have this appearance. Wrist X-Ray 06/19/19 11:53 IMPRESSION: Degenerative changes. No acute fracture. 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 Degenerative ch anges in the joint. Facial Bones CT 06/19/19 11:55 IMPRESSION: NO ACUTE FINDINGS. Modified Barium Swallow 06/21/19 00:00 IMPRESSION: LARYNGEAL PENETRATION AND ASPIRATION ABOVE. PLEASE SEE SPEECH PATHOLOGIST REPORT FOR OTHER FINDINGS AND RECOMMENDATIONS. Head CT 06/24/19 11:40 IMPRESSION: No acute intracranial pathology. Small vessel white matter disease. EVIDENCE OF ACUTE STROKE: NO. Chest X-Ray 06/25/19 00:00 IMPRESSION: Improved patchy bibasilar parenchymal opacities. Assessment and Plan - Diagnosis (1) Pneumonia Qualifiers: Pneumonia type: due to unspecified organism Laterality: bilateral Is this a current diagnosis for this admission?: Yes Plan: Patient febrile overnight. WBC WNL. Chest CT on admission showed multifocal pneumonia. Concern for health care associated pneumonia as patient is a resident of detention. Afebrile. BC WNL. Repeat checks x-ray shows improvement of infiltrations. Repeat blood culture growing gram-positive cocci in clusters. Pending sensitivity. Continue empiric antibiotics. Follow-up culture. (2) Coronary artery disease Qualifiers: Is this a current diagnosis for this admission?: Yes Plan: Denies any anginal symptoms. Restart home meds. (3) Acute encephalopathy Is this a current diagnosis for this admission?: Yes Plan: Acute metabolic encephalopathy. Resolved. Back to baseline. Likely related to ongoing pneumonia in a dementia patient. (4) Dementia Is this a current diagnosis for this admission?: Yes Plan: Continue supportive measures. Fall precautions. (5) Dysphagia Qualifiers: Dysphagia type: oropharyngeal phase Qualified Code(s): R13.12 - Dysphagia, oropharyngeal phase Is this a current diagnosis for this admission?: Yes Plan: MBS positive for laryngeal aspiration. Speech therapy on board. Recommendations noted. (6) Pulmonary edema Is this a current diagnosis for this admission?: Yes Plan: Resolved. Benign chest examination. proBNP elevated on admission compared to last visit. 06/21: Echo showed normal EF with grade 2 DD. CXR findings is likely from multifocal pneumonia rather than pulmonary edema.
[2019-06-27] MEDS: TAMSULOSIN HCL 0.4 MG CAP.SR.24H PO SCH (17:20)
[2019-06-27] MEDS: MIRTAZAPINE 15 MG TABLET PO SCH (21:45)
[2019-06-28] MEDS: HEPARIN SOD (PORCINE) 5,000 UNIT/ML 1 ML VIAL SUBCUT SCH ×2 (05:06→14:20)
[2019-06-28] MEDS: VANCOMYCIN HCL 1,000 MG in DEXTROSE 5%-WATER 250 ML IV SCH (09:00)
[2019-06-28] MEDS: MULTIVITAMIN TABLET PO SCH (09:54)
[2019-06-28] MEDS: CYANOCOBALAMIN (VITAMIN B-12) 1,000 MCG TABLET PO SCH (09:54)
[2019-06-28] MEDS: DOCUSATE SODIUM 100 MG CAPSULE PO SCH (09:54)
[2019-06-28] MEDS: FAMOTIDINE 20 MG TABLET PO SCH (09:54)
[2019-06-28] MEDS: ASPIRIN 81 MG TABLET, CHEWABLE PO SCH (09:54)
[2019-06-28] MEDS: UMECLIDINIUM BROMIDE 62.5 MCG/DOSE IH SCH (09:54)
[2019-06-28] MEDS: RISPERIDONE 0.25 MG TABLET PO SCH (09:54)
[2019-06-28] MEDS: FERROUS SULFATE 325 MG TABLET PO SCH (09:54)
[2019-06-28] MEDS: FINASTERIDE 5 MG TABLET PO SCH (09:54)
[2019-06-28] MEDS: METOPROLOL TARTRATE 50 MG TABLET PO SCH (09:54)
--- NOTE | 2019-06-28 11:03 | PDOC TRANSFER SUMMARY ---
General Admission Date/PCP: 06/19/19 18:48 ARTEMIO HOLBROOK-[place] Resuscitation Status: Do Not Resuscitate - Transfer Diagnosis (1) Pneumonia Is this a current diagnosis for this admission?: Yes (2) Coronary artery disease Is this a current diagnosis for this admission?: Yes (3) Acute encephalopathy Is this a current diagnosis for this admission?: Yes (4) Dementia Is this a current diagnosis for this admission?: Yes (5) Dysphagia Is this a current diagnosis for this admission?: Yes (6) Pulmonary edema Is this a current diagnosis for this admission?: Yes - Transfer Medications Home Medications: Aspirin [Aspirin 81 mg Chewable Tablet] 81 mg PO DAILY 06/24/18 Cyanocobalamin (Vitamin B-12) [Vitamin B-12 1000 mcg Tablet] 1,000 mcg PO DAILY 06/24/18 Docusate Sodium [Colace 100 mg Capsule] 100 mg PO BID 06/24/18 Famotidine [Pepcid 20 mg Tablet] 20 mg PO Q12 06/24/18 Ferrous Sulfate [Feosol 325 mg Tablet] 325 mg PO BID 06/24/18 Finasteride [Proscar 5 mg Tablet] 5 mg PO DAILY 06/24/18 Metoprolol Tartrate [Lopressor 50 mg Tablet] 50 mg PO Q12 06/24/18 Mirtazapine [Remeron 15 mg Tablet] 15 mg PO QHS 06/24/18 Multivitamin [Tab-A-Gerald (Multiple Vitamin) Tablet] 1 tab PO DAILY 06/24/18 Tamsulosin HCl [Flomax 0.4 mg Cap.sr] 0.4 mg PO QPM 06/24/18 Tiotropium Ophir [Spiriva Handihaler 5 Cap/Kit (18 Mcg/Cap)] 1 puff IH DAILY 06/24/18 Risperidone [Risperdal] 0.5 mg PO Q12 06/17/19 Transfer Medications: Current Medications Acetaminophen (Tylenol 325 Mg Tablet) 650 mg PO Q4HP PRN PRN Reason: FOR PAIN Stop: 07/19/19 18:50 Last Admin: 06/24/19 19:41 Dose: 650 mg Documented by: Albuterol/Ipratropium (Duoneb 3 Ml Ampul) 3 ml NEB RTQ4HP PRN PRN Reason: SHORTNESS OF BREATH Stop: 07/19/19 18:50 Aspirin (Aspirin 81 Mg Chewable Tablet) 81 mg PO DAILY MARI Stop: 07/20/19 09:59 Last Admin: 06/28/19 09:54 Dose: 81 mg Documented by: Cyanocobalamin (Vitamin B-12 1000 Mcg Tablet) 1,000 mcg PO DAILY MARI Stop: 07/23/19 09:59 Last Admin: 06/28/19 09:54 Dose: 1,000 mcg Documented by: Docusate Sodium (Colace 100 Mg Capsule) 100 mg PO BID MARI Stop: 07/22/19 17:59 Last Admin: 06/28/19 09:54 Dose: 100 mg Documented by: Famotidine (Pepcid 20 Mg Tablet) 20 mg PO Q12 MARI Stop: 07/22/19 21:59 Last Admin: 06/28/19 09:54 Dose: 20 mg Documented by: Ferrous Sulfate (Feosol 325 Mg Tablet) 325 mg PO BID MARI Stop: 07/22/19 17:59 Last Admin: 06/28/19 09:54 Dose: 325 mg Documented by: Finasteride (Proscar 5 Mg Tablet) 5 mg PO DAILY MARI Stop: 07/23/19 09:59 Last Admin: 06/28/19 09:54 Dose: 5 mg Documented by: Heparin Sodium (Porcine) (Heparin Inj 5,000 Units/Ml 1 Ml Vial) 5,000 unit SUBCUT Q8 MARI Stop: 07/19/19 21:59 Last Admin: 06/28/19 05:06 Dose: 5,000 unit Documented by: Vancomycin HCl 1,000 mg/ (Dextrose) 250 mls @ 166.667 mls/hr IV Q12 MARI Stop: 07/04/19 09:59 Last Admin: 06/28/19 09:00 Dose: 166.67 mls/hr, 166.67 mls/hr Documented by: Metoprolol Tartrate (Lopressor 50 Mg Tablet) 50 mg PO Q12 MARI Stop: 07/22/19 21:59 Last Admin: 06/28/19 09:54 Dose: 50 mg Documented by: Mirtazapine (Remeron 15 Mg Tablet) 15 mg PO QHS MARI Stop: 07/22/19 21:59 Last Admin: 06/27/19 21:45 Dose: 15 mg Documented by: Multivitamins (Tab-A-Gerald (Multiple Vitamin) Tablet) 1 tab PO DAILY MARI Stop: 07/23/19 09:59 Last Admin: 06/28/19 09:54 Dose: 1 tab Documented by: Risperidone (Risperdal 0.25 Mg Tablet) 0.25 mg PO BID MARI Stop: 07/20/19 09:59 Last Admin: 06/28/19 09:54 Dose: 0.25 mg Documented by: Sodium Chloride (Saline Flush 2.5 Ml Monoject Prefil Syrin) 2.5 ml IV Q8 MARI Stop: 07/19/19 21:59 Last Admin: 06/28/19 05:09 Dose: 2.5 ml Documented by: Tamsulosin HCl (Flomax 0.4 Mg Cap.Sr) 0.4 mg PO QPM MARI Stop: 07/22/19 17:59 Last Admin: 06/27/19 17:20 Dose: 0.4 mg Documented by: Umeclidinium Ophir (Incruse 62.5 Mcg Ellipta 7 Dose/Dpi) 1 inh IH DAILY MARI Stop: 07/23/19 09:59 Last Admin: 06/28/19 09:54 Dose: 1 inhaler Documented by: - Allergies Allergies/Adverse Reactions: No Known Allergies Allergy (Verified 12/08/13 12:43) Hospital Course Hospital Course: RAMESH GUERRERO is a 83 year old male with a past medical history of dementia, CAD and diabetes mellitus type 2 who was brought in from [facility] due to being unsteady and fall at the [facility]. Patient was recently admitted and treated for H CAP. He was discharged yesterday on antibiotics. Son reports that he was still more confused than his baseline. Reportedly, he was unsteady on his feet earlier tod ay at the [facility] and fell. In the ER, trauma work-up was unremarkable. Chest x- ray shows worsening of right lower lobe opacity and possibly increasing congestion compared to his previous x-ray. Son denies prior history of congestive heart failure. Assessment and Plan (1) Pneumonia Afebrile. WBC WNL. Chest CT on admission showed multifocal pneumonia. Due to concern for healthcare associated pneumonia patient was started on vancomycin and ceftriaxone. Repeat checks x-ray shows improvement of infiltrations. Repeat blood culture growing 1 out of 4 bottles staph epidermidis. Most likely contamination. Completed course of empiric IV antibiotics. (2) Coronary artery disease Denies any anginal symptoms. Restart home meds. Restart home meds upon discharge. (3) Acute encephalopathy Resolved. At baseline patient has severe dementia alert and oriented only to self. Acute metabolic encephalopathy acute due to underlying infectious process complicated by underlying dementia. (4) Dementia Was discharged home. Continue supportive measures. Fall precautions instituted. (5) Dysphagia Speech therapy was consulted. Patient underwent modified barium swallow. Finding and speech therapy recommendations are as follows. 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 (6) Pulmonary edema Resolved. Benign chest examination. SPO2 WNL on RA. proBNP elevated on admission compared to last visit. 06/21: Echo showed normal EF with grade 2 DD. CXR findings on admission is likely from multifocal pneumonia. Physical Exam Vital Signs: Temp Pulse Resp BP Pulse Ox 97.9 F 66 21 H 120/44 L 100 06/28/19 08:00 06/28/19 08:00 06/28/19 08:00 06/28/19 08:00 06/28/19 08:00 Intake & Output 06/27/19 06/28/19 06/29/19 06:59 06:59 06:59 Intake Total 830 1685 Output Total 1075 875 Balance -245 810 Weight 62.8 kg 62.5 kg General appearance: PRESENT: no acute distress, well-developed, well-nourished Head exam: PRESENT: atraumatic, normocephalic Respiratory exam: PRESENT: clear to auscultation amarilis. ABSENT: rales, rhonchi, wheezes Pulses: PRESENT: normal dorsalis pedis pul GI/Abdominal exam: PRESENT: normal bowel sounds, soft. ABSENT: distended, g uarding, mass, organolmegaly, rebound, tenderness Neurological exam: PRESENT: alert, awake, oriented to person, CN II-XII grossly intact. ABSENT: motor sensory deficit Results Laboratory Results: 06/25/19 08:50 06/26/19 21:27 06/25/19 09:00 Blood Blood Culture (PCR) - Final Staphylococcus Species 06/25/19 09:00 Blood Blood Culture - Final Staphylococcus Epidermidis 06/19/19 14:36 NT-Pro-B Natriuret Pep 1740 H Impressions: Cervical Spine CT 06/19/19 00:00 IMPRESSION: CHRONIC DEGENERATIVE CHANGES. NO ACUTE FINDINGS. Chest CT 06/19/19 00:00 IMPRESSION: Small bilateral pleural effusions, left greater than right. Mild interstitial thickening with scattered ground-glass opacities. More confluent airspace opacities are present in both lower lobes and inferior lingula and right middle lobe. Infection should be excluded clinically, asymmetric edema may also have this appearance. Wrist X-Ray 06/19/19 11:53 IMPRESSION: Degenerative changes. No acute fracture. 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 Degenerative changes in the joint. Facial Bones CT 06/19/19 11:55 IMPRESSION: NO ACUTE FINDINGS. Modified Barium Swallow 06/21/19 00:00 IMPRESSION: LARYNGEAL PENETRATION AND ASPIRATION ABOVE. PLEASE SEE SPEECH PATHOLOGIST REPORT FOR OTHER FINDINGS AND RECOMMENDATIONS. Head CT 06/24/19 11:40 IMPRESSION: No acute intracranial pathology. Small vessel white matter disease. EVIDENCE OF ACUTE STROKE: NO. Chest X-Ray 06/25/19 00:00 IMPRESSION: Improved patchy bibasilar parenchymal opacities.
[2019-06-28 13:27] VITALS: BP 115/47
== END 2019-06-28 16:30 | DRG 194 ==
LOC: ER 07:56 → EH 18:48 → INTOOBSV 18:48 → OBSVTOIN 18:48 → 4S 21:10
PROVIDERS: ADMIT Internal Medicine; ATTEND Internal Medicine
DX: J18.9 Pneumonia, unspecified organism (principal); G93.40 Encephalopathy, unspecified; J81.1 Chronic pulmonary edema; F03.90 Unspecified dementia, unspecified severity, without behavioral disturbance, psychotic disturbance, mood disturbance, and anxiety; I25.10 Atherosclerotic heart disease of native coronary artery without angina pectoris; E11.8 Type 2 diabetes mellitus with unspecified complications; E78.5 Hyperlipidemia, unspecified; I10 Essential (primary) hypertension; J44.9 Chronic obstructive pulmonary disease, unspecified; R13.12 Dysphagia, oropharyngeal phase; R26.81 Unsteadiness on feet; I25.2 Old myocardial infarction; Z95.1 Presence of aortocoronary bypass graft; Z79.82 Long term (current) use of aspirin; Z79.51 Long term (current) use of inhaled steroids; Z79.899 Other long term (current) drug therapy
CPT/HCPCS: 36415; 51702; 70450; 70486; 71045; 71046; 71250; 72125; 74230; 80048; 80053; 80202; 81001; 82565; 83735; 83880; 85025; 85610; 85730; 87040; 87077; 87150; 87186; 93005; 93010; 93306; 99285; C1758; G0378; J1630; J1644; J1940; J1956; J3370; J3490; J7060